=== PATIENT | female | born 1995 | race African-American/Black ===

== ENCOUNTER 2024-07-11 14:38 | Outpatient (AMB) | payer MEDICAID, SELFPAY ==
--- NOTE | 2024-07-11 14:38 | A.OFFVIS_ITS ---
Vital Signs 07/11/24 14:40 Height 5 ft 6.75 in Weight 150 lb 2.157 oz BMI 23.7 BP 120/74 Blood Pressure Location Lt brachial Position Sitting Pulse 85 Pulse Source Pulse Oximeter Pulse Oximetry (%) 100 Oxygen Delivery Method Room Air Intake Visit Reasons: Spondyloarthritis Intake Note: Patient presents with spondyloarthritis today. She is having arthritis and skin flare and would like to talk about med changes. Accompanied by: Significant Other Allergies hydroxyzine [From Atarax] Allergy (Mild, Verified 07/11/24 14:47) bradycardia pineapple Allergy (Mild, Verified 07/11/24 14:47) mouth burning, lip swelling meloxicam Allergy (Mild, Uncoded 07/11/24 14:47) Stomach Upset HPI HPI Spondyloarthritis: Details: She had covid-19 in April she had exacerbation of joint pain and sternal pain causing difficulty breathing/moving/sleeping diagnosed with costochondritis. [facility] Surgical History (Updated 07/11/24 @ 14:58 by Kelsey Arzate CMA) S/P bilateral breast reduction S/P removal of ovarian cyst H/O umbilical hernia repair Family History (Updated 07/11/24 @ 15:00 by Kelsey Arzate CMA) Mother Non Hodgkin lymphoma, stage IIA Father Hypertension Diabetes 1.5, managed as type 2 Sister Type 2 diabetes mellitus Review of Systems Const All systems reviewed & are unremarkable except as noted in HPI and below Physical Exam Vital Signs: Last Vital Signs Pulse 85 07/11/24 14:40 BP 120/74 07/11/24 14:40 Pulse Ox 100 07/11/24 14:40 Oxygen Delivery Method Room Air 07/11/24 14:40 BMI result Body Mass Index 23.7 Const Other: General: Comfortable CVS: RRR Respiratory: clear to auscultation bilaterally. Good respiratory effort Skin: Hyperpigmented circular lesions on arms. She has skin lesions on anterior chest. No scales on lesions. MSK: Tenderness of few small joints and hands. No synovitis. Tender right toes. No dactylitis. Good range of motion of upper extremities and lower extremities. 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 Methotrexate 10/2023 to present has improved polyarthralgias. Methotrexate P.o. was switched to subcutaneous injection due to GI side effects. She has not had an episode of joint swelling or dactylitis. Code(s): M47.819 - Spondylosis without myelopathy or radiculopathy, site unspecified Category: Medical Plan: Labs ordered for drug monitoring and high-risk medication. 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 She is having difficulty with fine motor movements due to chronic inflammatory arthritis not being controlled. Return to clinic in 3 months (2) Other terminal operations manager (current) drug therapy: Code(s): Z79.899 - Other terminal operations manager (current) drug therapy Category: Medical Plan: See above Orders: Orders Aspartate Amino Transferase 07/11/24 Z79.899 - Other terminal operations manager (current) drug t herapy Erythrocyte Sedimentation Rate 07/11/24 Z79.899 - Other alf (current) drug therapy Creatinine 07/11/24 Z79.899 - Other terminal operations manager (current) drug therapy C Reactive Protein 07/11/24 Z79.899 - Other alf (current) drug therapy Alanine Aminotransferase 07/11/24 M47.819 - Spondylosis without myelopathy or radiculopathy, site unspecified, Z79.899 - Other terminal operations manager (current) drug therapy Complete Blood Count Auto Diff 07/11/24 Z79.899 - Other terminal operations manager (current) drug therapy Coding Level of Care Code Est Pt Level 4 (00128) Complex EM visit Add On G2211 Diagnoses Spondyloarthritis M47.819 Other terminal operations manager (current) drug therapy Z79.899
[2024-07-11 14:40] VITALS: BP 120/74; PULSE 85; O2SAT 100; BMI 23.7
== END 2024-07-11 15:48 | disposition home or self-care (01) ==
PROVIDERS: Visit Provider Internal Medicine Rheumatology
DX: M47.819 Spondylosis without myelopathy or radiculopathy, site unspecified (principal); Z79.899 Other long term (current) drug therapy
CPT/HCPCS: 99214

== ENCOUNTER → 2024-07-11 14:38 | Outpatient (BNVA) | payer MEDICAID, SELFPAY | PROVIDERS: Visit Provider Internal Medicine Rheumatology | DX: M47.819 Spondylosis without myelopathy or radiculopathy, site unspecified (principal); Z79.899 Other long term (current) drug therapy | CPT/HCPCS: 99212 ==

== ENCOUNTER 2024-08-29 13:05 | Outpatient (REF) | payer MEDICAID, SELFPAY ==
[2024-08-29 17:48] LABS: MANUAL DIFF FLAG NO
[2024-08-29 18:28] LABS: Basophils Percent Auto 0.4 % (0-2); Hematocrit 37.2 % (37.0-47.0); Hemoglobin 12.2 g/dl (12.0-16.0); Imm Gran Abs Auto 0.02 X10*3/uL (0.00-0.03); Imm Gran Pct Auto 0.3 % (0.0-0.4); Lymphocytes Absolute Auto 1.3 X10*3/uL (1.2-4.9); Lymphocytes Percent Auto 19.3 % (20-40); Mean Corpuscular HGB Conc 32.8 g/dl (31.0-35.0); Mean Corpuscular Hemoglobin 32.6 pg (27.0-33.0); Mean Corpuscular Volume 99.5 fL (80.0-98.0); Mean Platelet Volume 9.6 fL (9.4-12.3); Monocytes Absolute Auto 0.2 X10*3/uL (0.1-1.2); Monocytes Percent Auto 2.2 % (2-11); Neutrophils Absolute Auto 5.4 x10*3/uL (2.0-8.3); Neutrophils Percent Auto 77.8 % (45-73); Platelet Count 305 X10*3/uL (160-400); Red Blood Count 3.74 X10*6/uL (4.20-5.50); Red Cell Distribution Width 12.8 % (11.0-16.0)
[2024-08-29 18:33] LABS: Alanine Aminotransferase 26 U/L (0-31); Aspartate Amino Transferase 24 U/L (5-31); C Reactive Protein < 0.04 mg/dL (< or = 0.50); Estimated Glomerular Filt Rate > 60
[2024-08-29 19:38] LABS: Erythrocyte Sedimentation Rate 4 MM/HR (0-20)
== END 2024-08-29 13:06 | disposition home or self-care (01) ==
LOC: HO.HKASLDS 13:05
PROVIDERS: Visit Provider Internal Medicine Rheumatology
DX: M47.819 Spondylosis without myelopathy or radiculopathy, site unspecified (principal); Z79.899 Other long term (current) drug therapy
CPT/HCPCS: 36415; 82565; 84450; 84460; 85025; 85652; 86140; 99212

== ENCOUNTER 2024-08-29 13:05 | Outpatient (AMB) | payer MEDICAID, SELFPAY ==
[2024-08-29 13:09] VITALS: BP 110/68; PULSE 85; O2SAT 98; BMI 22.9
--- NOTE | 2024-08-29 13:09 | A.OFFVIS_ITS ---
Vital Signs 08/29/24 13:09 Height 5 ft 6.75 in Weight 145 lb BMI 22.9 BP 110/68 Blood Pressure Location Lt brachial Position Sitting Pulse 85 Pulse Source Pulse Oximeter Pulse Oximetry (%) 98 Oxygen Delivery Method Room Air Intake Visit Reasons: spondyloarthritis Intake Note: Patient presents for follow up on spondyloarthritis. Allergies hydroxyzine [From Atarax] Allergy (Mild, Verified 08/29/24 13:13) bradycardia pineapple Allergy (Mild, Verified 08/29/24 13:13) mouth burning, lip swelling meloxicam Allergy (Mild, Uncoded 08/29/24 13:13) Stomach Upset HPI HPI spondyloarthritis: Details: Prednisone 15mg daily started yesterday. She has swelling of her left 4th toe and her fingers. She was taking Celebrex 200 mg twice a day for a few weeks along with methotrexate increased dose. With increasing joint pain she had noticed decreased pain but then swelling in toe occurred 2 weeks ago. [facility] Surgical History (Updated 07/11/24 @ 14:58 by Kelsey Arzate CMA) S/P bilateral breast reduction S/P removal of ovarian cyst H/O umbilical hernia repair Family History (Updated 07/11/24 @ 15:00 by Kelsey Arzate CMA) Mother Non Hodgkin lymphoma, stage IIA Father Hypertension Diabetes 1.5, managed as type 2 Sister Type 2 diabetes mellitus Review of Systems Const All systems reviewed & are unremarkable except as noted in HPI and below Physical Exam Vital Signs: Last Vital Signs Pulse 85 08/29/24 13:09 BP 110/68 08/29/24 13:09 Pulse Ox 98 08/29/24 13:09 Oxygen Delivery Method Room Air 08/29/24 13:09 BMI result Body Mass Index 22.9 Const Other: General: Comfortable CVS: RRR Respiratory: clear to auscultation bilaterally. Good respiratory effort Skin: No lesions seen MSK: Tender right 2nd and 3rd MCP. Tender left 2nd and 3rd MCP. Partial Dactylitis of bilateral 3rd fingers noted. She has tenderness of phalanges and DIPJ of 3rd fingers. Tender left wrist. Good range of motion of upper e xtremities. She has dactylitis left 4th toe with tenderness of all toes left foot. Tender right 5th toe and MTPs bilaterally. Tender right ankle. Good range of motion of lower extremities. 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 Methotrexate 10/2023 to present has improved polyarthralgias. Methotrexate P.o. was switched to subcutaneous injection due to GI side effects. She presents with dactylitis of hands and left foot failed treatment with Celebrex in conjunction with methotrexate. Humira is indicated. We discussed side effects, benefits and drug monitoring. Code(s): M47.819 - Spondylosis without myelopathy or radiculopathy, site unspecified Category: Medical Plan: Labs ordered for drug monitoring on high-risk medication. Continue folic acid 1 mg daily Humira PA. She will need to be scheduled for nurse teaching visit as soon as Humira is approved. She will then need labs for drug monitoring 1 month after starting Humira. Continue prednisone 15 mg daily 1 week, 10 mg daily 1 week, 5 mg daily 1 week then stop. If she has not had complete resolution of dactylitis, she will call office. Then I will prescribe diclofenac 50 mg b.i.d.. Return to clinic in 3 months (2) Other long term care social worker (current) drug therapy: Code(s): Z79.899 - Other care home (current) drug therapy Category: Medical Plan: See above Medications: New adalimumab (Humira(CF)) New PA needed. 40 mg (0.4 mL) subcut Q2W 2 ea 2RF Coding Level of Care Code Est Pt Level 4 (27804) Complex EM visit Add On G2211 Diagnoses Spondyloarthritis M47.819 Other care home (current) drug therapy Z79.899
== END 2024-08-29 13:43 | disposition home or self-care (01) ==
PROVIDERS: Visit Provider Internal Medicine Rheumatology
DX: M47.819 Spondylosis without myelopathy or radiculopathy, site unspecified (principal); Z79.899 Other long term (current) drug therapy
CPT/HCPCS: 99214

== ENCOUNTER 2024-10-16 08:44 | Outpatient (REF) | payer MEDICAID, SELFPAY ==
--- OUTSIDE RECORDS SUMMARY | 2024-10-16 10:56 | XMS_ITS | Encounter Summary ---
Author Organization [facility] Address [address] [place] [address] Care Team Providers Care Chief Librarian Work With Blind Name Role Phone Paddy Simms Primary Care Provider [phone] Encounter Details Date Type Department Care Team (Late Contact Info) Description 09/19/2024 myChart Message [address] [address] Cheryl Sandoval RN Current Eye Discomfort Social [...] Info) Description 01/15/2025 3:45 PM EDT Follow-Up [facility] 4th Floor [address] [place] [address], [place] [phone] Combo Welder: Christy Valentine MD [address] [place] [address] 02/05/2025 10:00 AM EDT Follow-Up [facility] [address] [address] Alondra Chua MD [address] [place] [address] documented as of this encounter Visit Diagnoses Not on filedocumented in this encounter Care Teams Chief Librarian Work With Blind Relationship Specialty Start Date End Date Paddy Simms PA PCP - General 10/24/23 documented as of this encounter
--- OUTSIDE RECORDS SUMMARY | 2024-10-16 10:56 | XMS_ITS | Encounter Summary ---
Author Organization [employer] Address [address] [place] [address] 7t [place] [address] Care Team Providers Care Fire Claims Adjuster Name Role Phone Paddy Simms Primary Care Provider [phone] Encounter Details Date Type Department Care Team (Late st Contact Info) Description 05/16/2023 Abstract [facility] [address] [place] [phone] Paddy Simms PA [address] [place] [address] Social History Tobacco Use Types Packs/Day Years [...] on filedocumented in this encounter Care Teams Fire Claims Adjuster Relationship Specialty Start Date End Date Paddy Simms PA [address] [place] [address] PCP - General Family Medicine 03/18/23 documented as of this encounter
--- OUTSIDE RECORDS SUMMARY | 2024-10-16 10:56 | XMS_ITS | Encounter Summary ---
Author Organization [facility] Address [address] [place] [address] Care Team Providers Care Outreach Consultant Name Role Phone Paddy Simms Primary Care Provider [phone] Reason for Referral * Consultation (Routine) - Pending Review Specialty Diagnoses / Procedures Referred By Contac t Referred To Contact Ophthalmology Diagnoses Photophobia Christy Carver MD [address] [place] [address] Phone: tel: fax: [facility] [address] [place] [address] Phone: tel: fax: Referral ID Status Reason Start Date Expiration Date Visits Requested Visits Authorized [id number] Pending Review Specialty Services Required 09/19/2024 03/21/2026 6 6 Reason for Visit * Reason Comments Skin Problem Biopsy * Dermatology (Routine) - Pending Review Specialty Diagnoses / Procedures Referred By Contac t Referred To Contact Dermatology Diagnoses Dermatitis, unspecified [facility] 4th [address] [place] [address], [place] [address] Phone: tel: fax: Referral ID Status Reason Start Date Expiration Date V isits Requested Visits Authorized [id number] Pending Review 10/19/2023 04/19/2025 6 6 Encounter Details Date Type Department Care Team (Late st Contact Info) Description 09/19/2024 10:00 AM EST Follow-Up [facility] 4th Floor [address] [facility], [place] [address] Linux Support Engineer: Christy Valentine MD [address] [place] [address] Atopic dermatitis, unspecified type (Primary Dx); Photophobia; [...] as of this encounter Progress Notes * Li Luevano MD - 09/19/2024 10:29 AM EST DERMATOLOGY OFFICE VISIT CHIEF COMPLAINT: dermatitis HPI: Polly Guy is a 29 y.o. female who is seen in follow up at [facility] Department of Dermatology for dermatitis follow up. LV 01/29/2024 for eczematous dermatitis when she continued on methotrexate with significant improvement and held off on starting dupilumab. Since the LV, she started dupilumab injections ~June 2024 during a flare, continues on methotrexate injections (increased to 0.7 mL by weighmaster lead), and recently completed a 3-week prednisone taper (15 -> 10 -> 5) yesterday. She is set to start Humira tomorrow, managed by her weighmaster lead. No topicals. No side effects from dupilumab. Reports new photophobia but no conjunctivitis. Her weighmaster lead was interested in a second skin biopsy [...] years ago. 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 Jose Juan Garcia at [facility] in [place] MEDICATIONS, ALLERGIES, PAST MEDICAL HISTORY, FAMILY HISTORY [...] methotrexate injections and start Humira per her weighmaster lead - Reviewed biopsy results from 10/2023 which showed spongiotic dermatitis concerning for atopic dermatitis vs allergic contact dermatitis - Discussed can consider oral LULY inhibitors if no improvement - Reviewed sensitive skin care practices - Referral sent to Ophthalmology - patient reporting new photophobia, advised her to see an installation & maintenance executive to rule out any uveitis We asked [...] Info) Description 01/15/2025 3:45 PM EDT Follow-Up [facility] 4th [address] [place] [address], [place] [address] Linux Support Engineer: Christy Valentine MD [address] [place] [address] 02/05/2025 10:00 AM EDT Follow-Up [facility] [address] [place] [address] Alondra Chua MD [address] [place] [address] Scheduled Referrals Name Type Priority Associated Diagnoses Order Schedule Ambulatory referral to Ophthalmology Outpatient Referral Routine Photophobia Expected: 09/19/2024, Expires: 03/19/2025 documented as of this encounter Visit Diagnoses Diagnosis Atopic dermatitis, unspecified type- Primary Photophobia Visual discomfort Arthritis Unspecified arthropathy, site unspecified documented in this encounter Care Teams Outreach Consultant Relationship Specialty Start Date End Date Paddy Simms PA PCP - General 10/24/23 documented as of this encounter
--- OUTSIDE RECORDS SUMMARY | 2024-10-16 10:56 | XMS_ITS | Encounter Summary ---
Author Organization [facility] Address [address] [place] [address] Care Team Providers Care Tallow Refiner Name Role Phone Paddy Simms Primary Care Provider [phone] Encounter Details Date Type Department Care Team (Late st Contact Info) Description 10/09/2024 myChart Message [facility] 2nd Floor [address] [place] [address], [place] [address] Fibre Composite Technician: Christy Valentine MD [address] [place] [address] Rasuvo Social History Tobacco Use Types Packs/Day [...] Info) Description 01/15/2025 3:45 PM EDT Follow-Up [facility] 4th [address] [place] [address], [place] [phone] Fibre Composite Technician: Christy Valentine MD [address] [place] [address] 02/05/2025 10:00 AM EDT Follow-Up [facility] [address] [address] Alondra Chua MD [address] [place] [address] documented as of this encounter Visit Diagnoses Not on filedocumented in this encounter Care Teams Tallow Refiner Relationship Specialty Start Date End Date Paddy Simms PA PCP - General 10/24/23 documented as of this encounter
--- OUTSIDE RECORDS SUMMARY | 2024-10-16 10:56 | XMS_ITS | Encounter Summary ---
Author Organization [facility] Address [address] [place] [address] Care Team Providers Care Oil Dispatcher Name Role Phone Paddy Simms Primary Care Provider [phone] Reason for Visit * Reason Comments R/o uveitis * Consultation (Routine) - Pending Review Specialty Diagnoses / Procedures Referred By Contac t Referred To Contact Ophthalmology Diagnoses Photophobia Christy Carver MD [address] [place] [address] Phone: tel: fax: [address] [address] Phone: tel: fax: Referral ID Status Reason Start Date Expiration Date Visits Requested Visits Authorized [id number] Pending Review Specialty Services Required 09/19/2024 03/21/2026 6 6 Encounter Details Date Type Department Care Team (Late st Contact Info) Description 10/01/2024 2:45 PM EST Office Visit [address] [address] Alondra Chua MD [address] [place] [address] [phone] Inflammatory arthritis (Primary Dx); Family history of [...] OU - Both Eyes - rheumatology - [place], Humira 40 mg subcutaneous approved and started a week ago, on methotrexate 17.5 mg solution weekly, folic acid 2 mg po qdaily - service tech/welder - Dr. Christy Carver, I reviewed her [...] effects noted I will review notes from concrete mixing plant laborer, [place] Family history of glaucoma [...] methotrexate injections and start Humira per her concrete mixing plant laborer Return in 4 months (on 01/29/2025) for f/up dry eyes , dry eyes, Schirmmers, Refraction. Alondra Chua MD documented in this encounter Plan of Treatment Upcoming Encounters Date Type Department Care Team (Late st Contact Info) Description 01/15/2025 3:45 PM EDT Follow-Up [facility] 4th [address] [place] [address], [place] [phone] Endoscopy Technican: Christy Valentine MD [address] [place] [address] 02/05/2025 10:00 AM EDT Follow-Up [facility] [address] [place] [address] Alondra Chua MD [address] [place] [address] documented as of this encounter Procedures * Due to [place] [employer] law, this organization might not be sharing negative HIV tests. Procedure Name Priority Date/Time Associated Diagnosis Comments COLOR FUNDUS PHOTOGRAPHY - OU - BOTH EYES Routine 10/01/2024 4:02 PM EST Inflammatory arthritis OCT, MACULA - OU - BOTH EYES Routine 10/01/2024 4:02 PM EST Inflammatory arthritis documented in this encounter Results * Due to [place] state law, this organization might not be sharing negative HIV tests. * Color Fundus Photography - OU - Both Eyes (10/01/2024 4:02 PM EST) Narrative OPHTHALMOLOGY IMAGING - 10/01/2024 4:02 PM EST Normal fundus OU us Alondra Chua MD OPHTH PHOTOGRAPHY Final R esult Performing Organization Address [facility]/ZIP Co de Phone Number OPHTHALMOLOGY IMAGING * [...] type documented in this encounter Care Teams Oil Dispatcher Relationship Specialty Start Date End Date Paddy Simms PA PCP - General 10/24/23 documented as of this encounter
--- OUTSIDE RECORDS SUMMARY | 2024-10-16 10:56 | XMS_ITS | Encounter Summary ---
Author Organization [employer] Address [address] [facility] 7t [place] [address] Care Team Providers Care Customer Leader Name Role Phone Paddy Simms Primary Care Provider [phone] Encounter Details Date Type Department Care Team ([facility] st Contact Info) Description 08/05/[address] [address] Paddy Simms PA [address] [place] [address] [phone] Social History Tobacco Use Types Packs/Day Years [...] the past 12 months, has t he [employer], gas, oil or water [employer] threatened to shut off services in your [...] 4:04 PM EST Processed and faxed Auth #[id number] Valid 07/14/24-07/14/25 Visits: 10 * Telephone Encounter - Chip Daly - 08/05/2024 9:32 AM EST Verified Insurance: Referral Office: [facility] Rhe[facility] Diagnosis Code: M47.819 Number of Visits Needed: 10 NPI# of Facility: [id number] NPI# of Provider being referred to: Phone #: [phone] Fax #: [phone] Start Date: 07/14/24 documented in this encounter Plan of Treatment Not on file documented as of this encounter Visit Diagnoses Not on filedocumented in this encounter Care Teams Customer Leader Relationship Specialty Start Date End Date Paddy Simms PA [address] [place] [address] PCP - General Family Medicine 03/18/23 documented as of this encounter
--- OUTSIDE RECORDS SUMMARY | 2024-10-16 10:56 | XMS_ITS | Encounter Summary ---
Author Organization [facility] Address [address] [place] [address] Care Team Providers Care Men'S And Boys' Clothing Salesperson Name Role Phone Paddy Simms Primary Care Provider [phone] Reason for Visit * Reason Onset Date Comments PAC Nurse Scheduling Request 09/19/2024 Inf lammatory arthritis/photophobia ? uveitis Encounter Details Date Type Department Care Team (Late st Contact Info) Description 09/19/2024 Telephone [facility] [address] [address] Cheryl Sandoval RN PAC Nurse Scheduling Request [...] is aware she will be contacted at [phone] with any changes to this appointment documented in this encounter Plan of Treatment Upcoming Encounters Date Type Department Care Team (Late st Contact Info) Description 01/15/2025 3:45 PM EDT Follow-Up [facility] 4th [address] [place] [address], [place] [address] Automobile Rental Representative: Christy Valentine MD [address] [place] [address] 02/05/2025 10:00 AM EDT Follow-Up [facility] [address] [place] [address] Alondra Chua MD [address] [place] [address] documented as of this encounter Visit Diagnoses Not on filedocumented in this encounter Care Teams Men'S And Boys' Clothing Salesperson Relationship Specialty Start Date End Date Paddy Simms PA PCP - General 10/24/23 documented as of this encounter
--- OUTSIDE RECORDS SUMMARY | 2024-10-16 10:56 | XMS_ITS | Encounter Summary ---
Author Organization [employer] Address [address] [place] [address] 7t [place] [address] Care Team Providers Care Wool Sacker Name Role Phone Paddy Simms Primary Care Provider [phone] Reason for Visit * Reason Comments Med Change Request Encounter Details Date Type Department Care Team ([facility] st Contact Info) Description 10/12/2023 Refill [facility] [address] [place] [address] Paddy Simms PA [address] [place], [place] [phone] Binge eating disorder Social History Tobacco Use [...] disorder documented in this encounter Care Teams Wool Sacker Relationship Specialty Start Date End Date Paddy Simms PA [address] [place] [address] PCP - General Family Medicine 03/18/23 documented as of this encounter
--- OUTSIDE RECORDS SUMMARY | 2024-10-16 10:56 | XMS_ITS | Encounter Summary ---
Author Organization [facility] Address [address] [place] [address] Care Team Providers Care Potato Chip Sorter Name Role Phone Paddy Simms Primary Care Provider Reason for Visit * Reason Onset Date Comments Prior Authorization 09/19/2024 methotrexate , PF, 7.5 mg/0.15 mL auto-injectormethotrexate, PF, 17.5 mg/0.35 mL auto-injector Encounter Details Date Type Department Care Team (Late st Contact Info) Description 09/19/2024 Telephone [facility] 2nd [address] [place] [address], Second [place], [place] [phone] Senior Dentist: Christy Valentine MD [address] [place] [address] Prior Authorization (methotrexate, PF, 7.5 mg/0.15 mL [...] not included. Keshawn WINKLER was denied by [employer]. They want a diagnosis of either rheumatoid arthritis or plaque psoriasis with a previous trial of oral methotrexate. documented in this encounter Plan of Treatment Upcoming Encounters Date Type Department Care Team (Late st Contact Info) Description 01/15/2025 3:45 PM EDT Follow-Up [facility] 4th Floor [address] [place] [address], [place] [address] Senior Dentist: Christy Valentine MD [address] [place] [address] 02/05/2025 10:00 AM EDT Follow-Up [facility] [address] [place] [address] Alondra Chua MD [address] [place] [address] documented as of this encounter Visit Diagnoses Not on filedocumented in this encounter Care Teams Potato Chip Sorter Relationship Specialty Start Date End Date Paddy Simms PA PCP - General 10/24/23 documented as of this encounter
--- OUTSIDE RECORDS SUMMARY | 2024-10-16 10:56 | XMS_ITS | Encounter Summary ---
Author Organization [employer] Address [address] [place] [address] 7t [place] [address] Care Team Providers Care Fleet Sales Manager Name Role Phone Paddy Simms Primary Care Provider [phone] Encounter Details Date Type Department Care Team (Late st Contact Info) Description 04/18/2023 Abstract [facility] [address] [place] [phone] Paddy Simms PA [address] [place] [address] Social History Tobacco Use Types Packs/Day Years [...] on filedocumented in this encounter Care Teams Fleet Sales Manager Relationship Specialty Start Date End Date Paddy Simms PA [address] [place] [address] PCP - General Family Medicine 03/18/23 documented as of this encounter
--- OUTSIDE RECORDS SUMMARY | 2024-10-16 10:56 | XMS_ITS | Encounter Summary ---
Author Organization [employer] Address [address] [facility] 7t [place] [address] Care Team Providers Care Chief Gauger Name Role Phone Paddy Simms Primary Care Provider [phone] Encounter Details Date Type Department Care Team ([facility] st Contact Info) Description 10/31/2023 Abstract [facility] [address] [place] [address] Paddy Simms PA [address] [place], [place] [phone] Social History Tobacco Use Types Packs/Day Years [...] CYTOLOGY ORDERABLES F inal Result [facility] [address], [place] [address] documented in this encounter Visit Diagnoses Not on filedocumented in this encounter Care Teams Chief Gauger Relationship Specialty Start Date End Date Paddy Simms PA [address] [place] [address] PCP - General Family Medicine 03/18/23 documented as of this encounter
--- OUTSIDE RECORDS SUMMARY | 2024-10-16 10:57 | XMS_ITS | Encounter Summary ---
Author Organization [employer] Address [address] [facility] 7t [place] [address] Care Team Providers Care Human Resources Psychologist Name Role Phone Paddy Simms Primary Care Provider [phone] Encounter Details Date Type Department Care Team ([facility] st Contact Info) Description 09/20/[address] [address] Paddy Simms PA [address] [place] [address] [phone] Social History Tobacco Use Types Packs/Day Years [...] the past 12 months, has t he [employer], gas, oil or water [employer] threatened to shut off services in your [...] , and cause photo-phobia, Ptstated saw her wireline operator and wanted pt to see eye md for this, [facility] Pt is concerned and would like a [...] seen for eye pain,burning and watery eyes [phone] documented in this encounter Plan of Treatment Not on file documented as of this encounter Visit Diagnoses Not on filedocumented in this encounter Care Teams Human Resources Psychologist Relationship Specialty Start Date End Date Paddy Simms PA [address] [place] [address] PCP - General Family Medicine 03/18/23 documented as of this encounter
--- OUTSIDE RECORDS SUMMARY | 2024-10-16 10:57 | XMS_ITS | Clinical Summary ---
Author Organization [employer] Address [address] [place] [address] 7t [place] [address] Care Team Providers Care Correctional Classification Counselor Name Role Phone Paddy Simms Primary Care Provider [phone] Allergies Active Allergy Reactions Criticality Noted Date Comments Hydroxyzine 12/25/2017 Other reaction(s): Other (See Comments) feels high, then sleep too much Milk-Related Compounds 12/01/2017 Other reaction(s): Other (See Comments) Intolerance Pineapple 01/30/2018 Lip swelling Marquez Extract 11/26/2018 Lip burning Medications midodrine (Proamatine) [...] with Rheumatology and dermatology. Recently completed two [id number] prednisone tapers, each following a 15-10-5 mg [...] suspected psoriatic arthritis managed with methotrexate by nuclear engineer that presents for atraumatic sternal chest pain [...] also hold the Triamcinolone. Patient reports that Monitor Technician instructed them to hold methotrexate until sxs [...] recommend she discuss discontinuing cromolyn with her clean in places operator. Vestibular migraine 12/11/2023 Overview (12/11/2023): Related [...] sequestrant prescribed by prior GI in [place]. Assessment & Plan (05/25/2023 9:24 AM EDT): [...] also to continue uptitration of vyvanse with DISTRIBUTION AGENT [place] she is now established with. Return [...] Continue with weekly CBT therapist, and monthly DISTRIBUTION AGENT sessions. Assessment & Plan (03/18/2023 9:34 AM [...] Description 09/23/2024 10:40 AM EST Office Visit [address] [phone] Chan Owen PA-David Discomfort of both eyes (Primary Dx) 09/20/[address] [phone] Paddy Simms PA 09/05/[address] [phone] Paddy Simms PA Cervical Cancer Screening 08/09/[address] [address] Paddy Simms PA 08/05/[address] [address] Paddy Simms PA from Last [...] 4th Gen HIV Antibody Antigen NEGATIVE (NEG) [facility] Comment: Negative for antibodies to HIV 1 and HIV 2 and P24 antigen. Reference range: Negative Additional note: Written patient authorization is required for each separate release of this test result. This test was performed on the [employer] immunoassay system. Testing performed or reported by [facility], a Service of [facility], [facility] [place] [address] Rafiq Chino MD, Armature Inspector [place]# [id number] Blood 05/25/2023 9:22 AM EDT 05/25/2023 9:32 AM EDT us Paddy Luthi PA LAB BLOOD ORDERABLES Final Resul t Performing Organization Address [facility] Co de Phone Number [facility] [address] [place] [address] * Hepatits C Antibody w/Reflex HCV Quant PCR and Genotyping (05/25/2023 9:22 AM EDT) Hepatitis C Virus Ab, Serum NEGATIVE (NEG) [facility] Comment: Reference range: Negative This test was performed on the digitalbox immunoassay system. Testing performed or reported by [facility], a Service of [facility], [address] [place] [address] Rafiq Chino MD, Armature Inspector [facility]# [id number] 05/25/2023 9:22 AM EDT 05/25/2023 9:31 AM EDT Paddy WINKLER LAB BLOOD ORDERABLES Final Resul t Performing Organization Address [facility]/ZIP Co de Phone Number [facility] [address] [place] [address] * Pap Smear (05/21/2021 12:00 AM EDT) Swab Historical Provider LAB CYTOLOGY ORDERABLES F inal Result Performing Organization Address [facility] Co de Phone Number [address], [place] [address] from Last 3 Months or Most Recently Relevant to Health Maintenance Insurance , [facility] [place] [address] [facility] C3 Care Teams Correctional Classification Counselor Relationship Specialty Start Date End Date Paddy Simms PA [address] [place] [address] PCP - General Family Medicine 03/18/23
--- OUTSIDE RECORDS SUMMARY | 2024-10-16 10:57 | XMS_ITS | Clinical Summary ---
Author Organization [facility] Address [address] [place] [address] Care Team Providers Care Production Technician Name Role Phone Paddy Simms Primary Care Provider [phone] Allergies Active Allergy Reactions Criticality Noted Date Comments Hydroxyzine Other (see comments) 12/25/2017 Other reaction(s): Other (See Comments) feels high, then sleep too much feels high, then sleep too much Milk Containing Products (Dairy) Other (see comments) 12/01/2017 Intolerance Pineapple Swelling High 11/09/2001 Lip swelling Monette Other (see comments) 11/26/2018 Lip burning Medications [...] Department Care Team Description 10/09/2024 myChart Message [facility] 2nd Floor [address] [facility], [place] [address] Banquet Set Up Person: Christy Valentine MD Rasuvo 10/01/2024 2:45 PM EST Office Visit [facility] [address] [place] [address] Alondra Chua MD Inflammatory arthritis (Primary Dx); Family history of glaucoma; Dry eyes, bilateral; Atopic dermatitis, unspecified type 09/19/2024 10:00 AM EST Follow-Up [facility] [address] [phone] Banquet Set Up Person: Christy Valentine MD Atopic dermatitis, unspecified type (Primary Dx); Photophobia; Arthritis 09/19/2024 myChart Message [facility] [address] [place] [address] Cheryl Sandoval, DUNCAN Current Eye Discomfort 09/19/2024 Telephone [facility] [address] [address] Cheryl Sandoval, DUNCAN PAC Nurse Scheduling Request (Inflammatory arthritis/photophobia ? uveitis) 09/19/2024 Telephone [facility] 2nd Floor [address] [place] [address], [place] [address] Banquet Set Up Person: Christy Valentine MD Prior Authorization (methotrexate, PF, 7.5 mg/0.15 mL auto-injector/methotre xate, PF, 17.5 mg/0.35 mL auto-injector) 08/29/2024 Orders Only [facility] [address] [address] Banquet Set Up Person: Christy Valentine MD 08/29/2024 Telephone [facility] [address] [address] Banquet Set Up Person: John Connell 08/26/2024 beBetter Healthhart Message [facility] [address] [address] Banquet Set Up Person: Christy Valentine MD Question about Dupixent from [...] Info) Description 01/15/2025 3:45 PM EDT Follow-Up [facility] 4th Floor [address] [place] [address], [place] [address] Banquet Set Up Person: Christy Valentine MD [address] [place] [phone] 02/05/2025 10:00 AM EDT Follow-Up [facility] [address] [place] [address] Alondra Chua MD [address] [place] [address] Health Maintenance Due Date Last Done Comments [...] 05/20/2024, , 06/08/2021 Procedures * Due to [place] iMove law, this organization might not be sharing negative HIV tests. Procedure Name Priority Date/Time Associated Diagnosis Comments COLOR FUNDUS PHOTOGRAPHY - OU - BOTH EYES Routine 10/01/2024 4:02 PM EST Inflammatory arthritis OCT, MACULA - OU - BOTH EYES Routine 10/01/2024 4:02 PM EST Inflammatory arthritis from Last 3 Months Results * Due to [place] iMove law, this organization might not be sharing negative HIV tests. * Color Fundus Photography - OU - Both Eyes (10/01/2024 4:02 PM EST) Narrative OPHTHALMOLOGY IMAGING - 10/01/2024 4:02 PM EST Normal fundus OU Alondra Chua MD OPHTH PHOTOGRAPHY Final R esult Performing Organization Address [facility] Co de Phone Number OPHTHALMOLOGY IMAGING * OCT, Retina - OU - Both Eyes (10/01/2024 4:02 PM EST) Narrative OPHTHALMOLOGY IMAGING - 10/01/2024 4:02 PM EST Normal foveal contour no CME OU Alondra Chua MD OPHTH TOMOGRAPHY Final Re sult Performing Organization Address [facility] Co de Phone Number OPHTHALMOLOGY IMAGING from Last [address] [facility] Advance Directives Documents on File Type Date Recorded Patient Theatrical Agent Expl [facility] Care Proxy 11/14/2016 12:00 AM 11/14 Care Teams Production Technician Relationship Specialty Start Date End Date Paddy Simms PA PCP - General 10/24/23
--- OUTSIDE RECORDS SUMMARY | 2024-10-16 10:57 | XMS_ITS | Encounter Summary ---
Author Organization [facility] Address [address] [place] [address] Care Team Providers Care Shield Installer Name Role Phone Paddy Simms Primary Care Provider [phone] Encounter Details Date Type Department Care Team (Late st Contact Info) Description 08/26/2024 myChart Message [facility] 4th Floor [address] [place] [phone] Online Marketing Specialist: Christy Valentine MD [address] [place] [phone] Question about Dupixent Social History Tobacco Use [...] Info) Description 01/15/2025 3:45 PM EDT Follow-Up [facility] 4th Floor [address] [place] [phone] Online Marketing Specialist: Christy Valentine MD [address] [place] [address] [phone] 02/05/2025 10:00 AM EDT Follow-Up [facility] [address] [address] Alondra Chua MD [address] [place] [phone] documented as of this encounter Visit Diagnoses Not on filedocumented in this encounter Care Teams Shield Installer Relationship Specialty Start Date End Date Paddy Simms PA PCP - General 10/24/23 documented as of this encounter
--- OUTSIDE RECORDS SUMMARY | 2024-10-16 10:57 | XMS_ITS | Referral Summary ---
Author Organization [facility] Address [address] [place] [address] Care Team Providers Care Parimutuel Clerk Name Role Phone Paddy Simms Primary Care Provider [phone] Encounters Date Type Department Care Team Description 10/09/2024 myChart Message [facility] [address] [place] [address] Tea Tree Farm Worker: Christy Valentine MD [facility] 10/01/2024 2:45 PM EST Office Visit [facility] [address] [address] Alondra Chua MD Inflammatory arthritis (Primary Dx); Family history of glaucoma; Dry eyes, bilateral; Atopic dermatitis, unspecified type 09/19/2024 bCODEhart Message [facility] [address] [address] Cheryl Sandoval RN Current Eye Discomfort 09/19/2024 Telephone [facility] [address] [phone] Cheryl Sandoval RN PAC Nurse Scheduling Request (Inflammatory arthritis/photophobia ? uveitis) 09/19/2024 Telephone [facility] [address] [phone] Tea Tree Farm Worker: Christy Valentine MD Prior Authorization (methotrexate, PF, 7.5 mg/0.15 mL auto-injector/methotre xate, PF, 17.5 mg/0.35 mL auto-injector) 09/19/2024 10:00 AM EST Follow-Up [facility] [address] [place] [address], [place] [phone] Tea Tree Farm Worker: Christy Valentine MD Atopic dermatitis, unspecified type (Primary Dx); Photophobia; Arthritis 08/29/2024 Orders Only [facility] [address], [place] [address] Tea Tree Farm Worker: Christy Valentine MD 08/29/2024 Telephone [facility] [address] [place] [address], [place] [phone] Tea Tree Farm Worker: John Connell 08/26/2024 myChart Message [facility] [address] [place] [address], [place] [phone] Tea Tree Farm Worker: Christy Valentine MD Question about Dupixent from Last 3 Months Allergies Active Allergy Reactions Criticality Noted Date Comments Hydroxyzine Other (see comments) 12/25/2017 Other reaction(s): Other (See Comments) feels high, then sleep too much feels high, then sleep too much Milk Containing Products (Dairy) Other (see comments) 12/01/2017 Intolerance Pineapple Swelling High 11/09/2001 Lip swelling Wendell Other (see comments) 11/26/2018 Lip burning Medications [...] Info) Description 01/15/2025 3:45 PM EDT Follow-Up [facility] 4th [address] [place] [address], [place] [phone] Tea Tree Farm Worker: Christy Valentine MD [address] [place] [phone] 02/05/2025 10:00 AM EDT Follow-Up [facility] [address] [place] [phone] Alondra Chua MD [address] [place] [address] Procedures * Due to [place] Wireless Safety law, this organization might not be sharing negative HIV tests. Procedure Name Priority Date/Time Associated Diagnosis Comments COLOR FUNDUS PHOTOGRAPHY - OU - BOTH EYES Routine 10/01/2024 4:02 PM EST Inflammatory arthritis OCT, MACULA - OU - BOTH EYES Routine 10/01/2024 4:02 PM EST Inflammatory arthritis from Last 3 Months Results * Due to [place] Wireless Safety law, this organization might not be sharing [...] TOMOGRAPHY Final Re sult Performing Organization Address [facility]/ZIP Co de Phone Number OPHTHALMOLOGY IMAGING from Last 3 Months Insurance [facility] Advance Directives Documents on File Type Date Recorded Patient Tablet Coater [facility] Proxy 11/14/2016 12:00 AM 11/14 Care Teams Parimutuel Clerk Relationship Specialty Start Date End Date Paddy Simms PA PCP - General 10/24/23
--- OUTSIDE RECORDS SUMMARY | 2024-10-16 10:57 | XMS_ITS | Encounter Summary ---
Author Organization [employer] Address [address] [facility] 7t [place] [address] Care Team Providers Care Estimator And Drafter Name Role Phone Paddy Simms Primary Care Provider [phone] Encounter Details Date Type Department Care Team ([facility] st Contact Info) Description 08/09/[address] [phone] Paddy Simms PA [address] [place] [address] [phone] Social History Tobacco Use Types Packs/Day Years [...] the past 12 months, has t he [employer], gas, oil or water i[employer]uma threatened to shut off services in your [...] Facility: NPI# of Provider being referred to: [id number] Dr Jose Juan Garcia [address] [place] [address] Dr Jessica MARRERO [id number] Phone #: [phone] Fax #: documented in this encounter Plan of Treatment Not on file documented as of this encounter Visit Diagnoses Not on filedocumented in this encounter Care Teams Estimator And Drafter Relationship Specialty Start Date End Date Paddy Simms PA [address] [place] [phone] PCP - General Family Medicine 03/18/23 documented as of this encounter
--- OUTSIDE RECORDS SUMMARY | 2024-10-16 10:57 | XMS_ITS | Encounter Summary ---
Author Organization [employer] Address [address] [place] [address] 7t [place] [address] Care Team Providers Care Steward/Stewardess Third Class Name Role Phone Paddy Simms Primary Care Provider [phone] Reason for Visit * Reason Comments Eye Problem Happening on and off for about a year burning in eyes, has seen derm they rec seeing an eye doc will be seen there next week Encounter Details Date Type Department Care Team (Late st Contact Info) Description 09/23/2024 10:40 AM EST Office Visit [facility] [address] [place] [phone] Chan Owen PA-C [address] [place], [place] [phone] Discomfort of both eyes (Primary Dx) Social [...] with Rheumatology and dermatology. Recently completed two [id number] prednisone tapers, each following a 15-10-5 mg [...] with Rheumatology and dermatology. Recently completed two [id number] prednisone tapers, each following a 15-10-5 mg [...] Primary documented in this encounter Care Teams Steward/Stewardess Third Class Relationship Specialty Start Date End Date Paddy Simms PA [address] [place] [phone] PCP - General Family Medicine 03/18/23 documented as of this encounter
[2024-10-16 18:37] LABS: MANUAL DIFF FLAG NO
[2024-10-16 18:52] LABS: Basophils Percent Auto 0.7 % (0-2); Eosinophils Absolute Auto 0.2 X10*3/uL (0.0-0.4); Eosinophils Percent Auto 3.9 % (0-4); Hemoglobin 12.9 g/dl (12.0-16.0); Imm Gran Abs Auto 0.01 X10*3/uL (0.00-0.03); Imm Gran Pct Auto 0.2 % (0.0-0.4); Lymphocytes Percent Auto 55.7 % (20-40); Mean Corpuscular HGB Conc 33.1 g/dl (31.0-35.0); Mean Corpuscular Hemoglobin 33.1 pg (27.0-33.0); Mean Platelet Volume 9.7 fL (9.4-12.3); Monocytes Absolute Auto 0.6 X10*3/uL (0.1-1.2); Monocytes Percent Auto 10.2 % (2-11); Neutrophils Absolute Auto 1.6 x10*3/uL (2.0-8.3); Neutrophils Percent Auto 29.3 % (45-73); Platelet Count 301 X10*3/uL (160-400); Red Cell Distribution Width 13.2 % (11.0-16.0); White Blood Count 5.4 X10*3/uL (4.8-10.8)
[2024-10-16 19:11] LABS: Alanine Aminotransferase 28 U/L (0-31); Aspartate Amino Transferase 28 U/L (5-31); C Reactive Protein < 0.04 mg/dL (< or = 0.50); Estimated Glomerular Filt Rate > 60
[2024-10-16 19:56] LABS: Erythrocyte Sedimentation Rate 5 MM/HR (0-20)
== END 2024-10-16 08:45 | disposition home or self-care (01) ==
LOC: HO.HKASLDS 08:44
PROVIDERS: Visit Provider Internal Medicine Rheumatology
DX: Z79.899 Other long term (current) drug therapy (principal); Z79.60 Long term (current) use of unspecified immunomodulators and immunosuppressants
CPT/HCPCS: 36415; 82565; 84450; 84460; 85025; 85652; 86140; 99212

== ENCOUNTER 2024-10-16 08:44 | Outpatient (AMB) | payer MEDICAID, SELFPAY ==
[2024-10-16 08:47] VITALS: BP 120/90; PULSE 68; O2SAT 100; BMI 22.5
--- NOTE | 2024-10-16 08:47 | MHC.OFFVIS ---
Vital Signs 10/16/24 08:47 Height 5 ft 6.75 in Weight 142 lb 13.753 oz BMI 22.5 BP 120/90 H Blood Pressure Location Lt brachial Position Sitting Pulse 68 Pulse Source Pulse Oximeter Pulse Oximetry (%) 100 Oxygen Delivery Method Room Air Intake Visit Reasons: 3 mo follow up Intake Note: Patient presents for follow up on spondyloarthritis. Accompanied by: self Allergies hydroxyzine [From Atarax] Allergy (Mild, Verified 10/16/24 08:47) bradycardia pineapple Allergy (Mild, Verified 10/16/24 08:47) mouth burning, lip swelling meloxicam Allergy (Mild, Uncoded 08/29/24 13:13) Stomach Upset HPI HPI 3 mo follow up: Details: Humira started 5 weeks ago. No noctural pain. She has noted less swelling in her toes. She was having exacerbation of rash on her extremities. Rash resolved after 2nd Humira injections. She continues to take Dupixent prescribed dermatology physician at [facility] D[facility] program. [facility] Surgical History S/P bilateral breast reduction S/P removal of ovarian cyst H/O umbilical hernia repair Family History Mother Non Hodgkin lymphoma, stage IIA Father Hypertension Diabetes 1.5, managed as type 2 Sister Type 2 diabetes mellitus Review of Systems Const All systems reviewed & are unremarkable except as noted in HPI and below Physical Exam Vital Signs: Last Vital Signs Pulse 68 10/16/24 08:47 BP 120/90 H 10/16/24 08:47 Pulse Ox 100 10/16/24 08:47 Oxygen Delivery Method Room Air 10/16/24 08:47 BMI result Body Mass Index 22.5 Const Other: General: Comfortable CVS: RRR Respiratory: clear to auscultation bilaterally. Good respiratory effort Skin: No lesions seen MSK: Tender right 2nd and 3rd MCP. No dactylitis in hands. Tender left wrist. Good range of motion of upper extremities. She has dactylitis left 4th toe with tenderness of all toes left third DIPJ. Dactylitis of right 4th and 5th toe with tenderness on palpation. Tender MTPs bilaterally. Tender bilateral ankles. Good range of motion of lower extremities. Assessment & Plan Assessment & Plan (1) Spondyloarthritis: Comment: Improvement in dactylitis in hands and feet with addition of Humira. Diagnosed based on history of dactylitis 08/09/2023 with persistent arthralgias, inflammatory back pain (SI joint and L-spine x-ray 10/10/2023 normal), normal inflammatory markers and seronegative (RF/CCP/TREVOR/HLA-B27). Methotrexate 10/2023 to present has improved polyarthralgias. Methotrexate P.o. was switched to subcutaneous injection due to GI side effects. 08/2024 dactylitis of hands and bilateral feet failed treatment with Celebrex in conjunction with methotrexate. Humira 08/2024- Code(s): M47.819 - Spondylosis without myelopathy or radiculopathy, site unspecified Category: Medical Plan: Labs ordered for drug monitoring on high-risk medication. Continue methotrexate 17.5 mg once weekly. She will call office when she needs methotrexate refill Continue folic acid 1 mg daily Continue Humira every other week Trial off of Celebrex as she is taking it only once a day She will schedule nurse teaching visit to ensure that she has administrating Humira correctly as patient did not have nurse teaching visit for 1st dose administration in office. 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 therapy: Code(s): Z79.899 - Other halfway (current) drug therapy Category: Medical Plan: See above Orders: Orders Creatinine Today Z79.60 - manager of organizational development (current) use of unspecified immunomodulators and immunosuppressants Aspartate Amino Transferase Today Z79.60 - detention (current) use of unspecified immunomodulators and immunosuppressants C Reactive Protein Today Z79.899 - Other motor vehicle light assembler (current) drug therapy Alanine Aminotransferase Today Z79.60 - detention (current) use of unspecified immunomodulators and immunosuppressants Complete Blood Count Auto Diff Today Z79.60 - detention (current) use of unspecified immunomodulators and immunosuppressants Erythrocyte Sedimentation Rate Today Z79.899 - Other halfway (current) drug therapy Medications: Changed From folic acid 1 mg PO DAILY To folic acid 2 mg (2 x 1 mg) PO DAILY 180 tabs 3RF Discontinued prednisone Take 3 tablets daily 1 week, 2 tablets daily 1 week, 1 tablet daily 7 days Discontinued Reason: Doctor's Order 15 mg (3 x 5 mg) PO DAILY 42 tabs 0RF Coding Level of Care Code Est Pt Level 4 (87871) Complex EM visit Add On G2211 Diagnoses Spondyloarthritis M47.819 Other motor vehicle light assembler (current) drug therapy Z79.899
--- OUTSIDE RECORDS SUMMARY | 2024-10-16 09:27 | XMS_ITS | Encounter Summary ---
Author Organization [employer] Address [address] [place] [address] [address] [place] [address] Care Team Providers Care Talent Development Director Name Role Phone Paddy Simms Primary Care Provider [phone] Encounter Details Date Type Department Care Team (Late st Contact Info) Description 04/18/2023 Abstract [facility] [address] [place] [phone] Paddy Simms PA [address] [place] [address] Social History Tobacco Use Types Packs/Day Years Used Date Smoking Tobacco: Never Smokeless Tobacco: Never Comments Unknown Sex and Gender Information Value Date Recorded Sex Assigned at Female 03/16/2023 9:01 AM EDT Legal Sex Female 8:59 AM EDT Gender Identity Female 03/16/2023 9:01 AM EDT Sexual Orientation Lesbian or Whiteside 03/16/2023 9: 01 AM EDT documented as of this encounter Plan of Treatment Not on file documented as of this encounter Visit Diagnoses Not on filedocumented in this encounter Care Teams Talent Development Director Relationship Specialty Start Date End Date Paddy Simms PA [address] [place] [address] PCP - General Family Medicine 03/18/23 documented as of this encounter
--- OUTSIDE RECORDS SUMMARY | 2024-10-16 09:27 | XMS_ITS | Encounter Summary ---
Author Organization [employer] Address [address] [place] [address] [address] [place] [address] Care Team Providers Care Test Skein Winder Name Role Phone Paddy Simms Primary Care Provider [phone] Reason for Visit * Reason Comments Med Change Request Encounter Details Date Type Department Care Team ([facility] st Contact Info) Description 10/12/2023 Refill [facility] [address] [place] [address] Paddy Simms PA [address] [place], [place] [id number] Binge eating disorder Social History Tobacco Use Types Packs/Day Years Used Date Smoking Tobacco: Former Cigarettes 0.5 10 0 08/21/2012 - 08/21/2022 Smokeless Tobacco: Never Alcohol Use Standard Drinks/Week Comments Not Currently 0 (1 standard drink = 0.6 oz pure alcohol) occasional, couple drinks approx 2x/month PHQ-2 Answer Date Recorded Patient Health Questionnaire-2 Score 1 05/25/2023 Alcohol Answer Date Recorded Frequency of Alcohol Consumption Not on file 05/25/2023 Average Number of Drinks Not on file 023 Frequency of Binge Drinking Not on file 12/2022 Score 0 05/25/2023 Housing Stability Answer Date Recorded What is your housing situation today? I have vandana mejía 06/08/[address] you li ve. Do you have problems with any of the following? None of the above 06/08/2023 Food Insecurity Answer Date Recorded Within the past 12 months, y ou worried that your food would run out before you got money to buy more: Never True 06/08/2023 Within the past 12 months,th e food you bought just didn't last and you didn't have enough money to get more: Never True Transportation Answer Date Recorded In the past 12 months, has l ack of transportation kept you from medical appts, meetings, work or from getting things needed for daily living? No 06/08/2023 Utilities Answer Date Recorded In the past 12 months, has t he electric, gas, oil or water company threatened to shut off services in your home? No 06/08/2023 Depression Answer Date Recorded Patient Health Questionnaire-2 Score 1 05/25/2023 Comments Unknown Sex and Gender Information Value Date Recorded Sex Assigned at Female 03/16/2023 9:01 AM EDT Legal Sex Female 8:59 AM EDT Gender Identity Female 03/16/2023 9:01 AM EDT Sexual Orientation Lesbian or Whiteside 03/16/2023 9: 01 AM EDT documented as of this encounter Plan of Treatment Not on file documented as of this encounter Visit Diagnoses Diagnosis Binge eating disorder documented in this encounter Care Teams Test Skein Winder Relationship Specialty Start Date End Date Paddy Simms PA [address] [place] [id number] PCP - General Family Medicine 03/18/23 documented as of this encounter
--- OUTSIDE RECORDS SUMMARY | 2024-10-16 09:27 | XMS_ITS | Encounter Summary ---
Author Organization [employer] Address [address] [place] [address] 7[address] [place] [address] Care Team Providers Care Mortgage Field Inspector Name Role Phone Paddy Simms Primary Care Provider [phone] Encounter Details Date Type Department Care Team (Late st Contact Info) Description 05/16/2023 Abstract [facility] [address] [place] [phone] Paddy Simms PA [address] [place] [address] Social History Tobacco Use Types Packs/Day Years [...] on filedocumented in this encounter Care Teams Mortgage Field Inspector Relationship Specialty Start Date End Date Paddy Simms PA [address] [place] [address] PCP - General Family Medicine 03/18/23 documented as of this encounter
--- OUTSIDE RECORDS SUMMARY | 2024-10-16 09:27 | XMS_ITS | Encounter Summary ---
Author Organization [facility] Address [address] [place] [address] Care Team Providers Care Finger Buffs Assembler Name Role Phone Paddy Simms Primary Care Provider [phone] Encounter Details Date Type Department Care Team (Late Contact Info) Description 09/19/2024 myChart Message [address] [address] Cheryl Sandoval RN Current Eye Discomfort Social History Tobacco Use Types Packs/Day Years Used Date Smoking Tobacco: Never Smokeless Tobacco: Never Comments Unknown Sex and Gender Information Value Date Recorded Sex Assigned at Female 10/19/2023 11:17 AM EST Legal Sex Female 7:24 PM EDT Gender Identity Female 11/10/2023 9:42 AM EDT Sexual Orientation Lesbian or Whiteside 11/10/2023 9: 42 AM EDT documented as of this encounter Plan of Treatment Upcoming Encounters Date Type Department Care Team (Late Contact Info) Description 01/15/2025 3:45 PM EDT Follow-Up [facility] [address] [place] [address], [place] [phone] Lineman A Class: Christy Valentine MD [address] [place] [id number] 02/05/2025 10:00 AM EDT Follow-Up [facility] [address] [address] Alondra Chua MD [address] [place] [address] documented as of this encounter Visit Diagnoses Not on filedocumented in this encounter Care Teams Finger Buffs Assembler Relationship Specialty Start Date End Date Paddy Simms PA PCP - General 10/24/23 documented as of this encounter
--- OUTSIDE RECORDS SUMMARY | 2024-10-16 09:27 | XMS_ITS | Encounter Summary ---
Author Organization [facility] Address [address] [place] [address] Care Team Providers Care Bakery Pastry Internship Name Role Phone Paddy Simms Primary Care Provider [phone] Encounter Details Date Type Department Care Team (Late st Contact Info) Description 10/09/2024 myChart Message [facility] [address]nd [address] [place] [address], [place] [address] Refrigeration Service Technician: Christy Valentine MD [address] [place] [phone] [place] Social History Tobacco Use Types Packs/Day Years [...] Encounters Date Type Department Care Team (Late st Contact Info) Description 01/15/2025 3:45 PM EDT Follow-Up [facility] [address] [place] [address], [place] [phone] Refrigeration Service Technician: Christy Valentine MD [address] [place] [phone] 02/05/2025 10:00 AM EDT Follow-Up [facility] [address] [address] Alondra Chua MD [address] [place] [phone] documented as of this encounter Visit Diagnoses Not on filedocumented in this encounter Care Teams Bakery Pastry Internship Relationship Specialty Start Date End Date Paddy Simms PA PCP - General 10/24/23 documented as of this encounter
--- OUTSIDE RECORDS SUMMARY | 2024-10-16 09:27 | XMS_ITS | Encounter Summary ---
Author Organization [facility] Address [address] [place] [address] Care Team Providers Care Pipeline Gang Supervisor Name Role Phone Paddy Simms Primary Care Provider [phone] Reason for Visit * Reason Comments R/o uveitis * Consultation (Routine) - Pending Review Specialty Diagnoses / Procedures Referred By Contac t Referred To Contact Ophthalmology Diagnoses Photophobia Christy Carver MD [address] [place] [id number] Phone: tel: fax: [address] [address] Phone: tel: fax: Referral ID Status Reason Start Date Expiration Date Visits Requested Visits Authorized [id number] Pending Review Specialty Services Required 09/19/2024 03/21/2026 6 6 Encounter Details Date Type Department Care Team (Late st Contact Info) Description 10/01/2024 2:45 PM EST Office Visit [address] [id number] Alondra Chua MD [address] [place] [address] [phone] Inflammatory arthritis (Primary Dx); Family history of glaucoma; Dry eyes, bilateral; Atopic dermatitis, unspecified type Social History Tobacco Use Types Packs/Day Years Used Date Smoking Tobacco: Never Smokeless Tobacco: Never Comments Unknown Sex and Gender Information Value Date Recorded Sex Assigned at Female 10/19/2023 11:17 AM EST Legal Sex Female 7:24 PM EDT Gender Identity Female 11/10/2023 9:42 AM EDT Sexual Orientation Lesbian or Whiteside 11/10/2023 9: 42 AM EDT documented as of this encounter Progress Notes * Alondra Chua MD - 10/01/2024 3:44 PM EST Constance Guy had concerns including R/o uveitis. HPI Varying levels of photophobia for ~ 1 year Burning OU w/ fullness in globes and excessive tearing methotrexate 17.5mg Q Humira (has had first loading dose) Dupixent Q weekly This is the first time they are starting biologic tx Mat aunt with GLC PGF went blind at 40 on unknown etiology Last edited by ALEJANDRA Rodrigues on 10/01/2024 3:09 PM. Past medical/surgical/family/social history reviewed. Medications have been reviewed. No current outpatient medications on file. (Ophthalmic Drugs) No current facility-administered medications for this visit. (Ophthalmic Drugs) Current Outpatient Medications (Other) Medication Sig BD Tuberculin Syringe 1 mL 27 x 1/2 syringe USE ONE SYRINGE WEEKLY WITH METHOTREXATE INJECTION buPROPion XL (WELLBUTRIN XL) 300 mg tablet SMARTSI Tablet(s) By Mouth Every Morning colestipoL (COLESTID) 1 gram tablet SMARTSI Tablet(s) By Mouth Twice Daily cycloSPORINE (RESTASIS) 0.05% ophthalmic emulsion Instill 1 drop into both eyes 2 times a day. dupilumab (DUPIXENT) 300 mg/2 mL syringe injection Inject 2 mL (300 mg total) under the skin every 14 days. folic acid (FOLVITE) 1 mg tablet Take 2 mg by mouth once a day. levocetirizine (XYZAL) 5 mg tablet Take 10 mg by mouth daily. methotrexate, PF, 7.5 mg/0.15 mL auto-injector Inject 0.35 mL (17.5 mg total) under the skin every 7 days. METOPROLOL TARTRATE 12.5 MG PO SPLIT TABLET (LOPRESSOR) midodrine (PROAMATINE) 5 mg tablet SMARTSI Tablet(s) By Mouth 3 Times Daily naltrexone (REVIA) 50 mg tablet SMARTSI.5 Tablet(s) By Mouth Every Morning perfluorohexyloctane, PF, 100 % drops Instill 1 drop into affected eye(s) 4 times a day. pyridostigmine (MESTINON) 60 mg tablet Take 60 mg by mouth 3 times daily. ruxolitinib (OPZELURA) 1.5 % topical cream Apply a thin layer twice daily to affected areas of up to 20% body surface area. Do not exceed more than 60 g/week or 100 g every two weeks. triamcinolone acetonide (KENALOG) 0.025% cream Apply topically to the affected area 2 times a day. Apply to affected area Vyvanse 30 mg capsule SMARTSI Capsule(s) By Mouth Every Morning No current facility-administered medications for this visit. (Other) Ms. Guy has no past medical history on file. The patient has no past surgical history on file. Base Eye Exam Visual Acuity (Snellen - Linear) Right Left Dist sc 20/20 20/20 -1 Tonometry (I-Care, 3:07 PM) Right Left Pressure 15 16 Pupils Dark Light Right 3.5 3 Left 3.5 3 Visual Rodriguez Left Right Full Full Extraocular Movement Right Left Full Full Neuro/Psych Oriented x3: Yes Mood/Affect: Normal Dilation Both eyes: 1.0% Tropicamide, 2.5% Phenylephrine @ 3:04 PM Slit Lamp and Fundus Exam External Exam Right Left External Normal Normal Slit Lamp Exam Right Left Lids/Lashes Normal Normal Conjunctiva/Sclera Normal Normal Cornea tr spee, lower TBUT tr spee, lower TBUT Anterior Chamber Deep and Quiet Deep and Quiet Iris Round and Reactive Round and Reactive Lens Clear Clear Vitreous Normal Normal Fundus Exam Right Left Disc Normal Normal C/D Ratio 0.2 0.2 Macula Normal Normal Vessels Normal Normal Periphery Normal Normal Diagnoses and all orders for this visit: Inflammatory arthritis - psoriatric arthritis vs ankylosing spondylitis, seroneg spondylarthropathy - OCT, Retina - OU - Both Eyes - Color Fundus Photography - OU - Both Eyes - rheumatology - [place] [facility], Humira 40 mg subcutaneous approved and started a week ago, on methotrexate 17.5 mg solution weekly, folic acid 2 mg po qdaily - supervisor marble - Dr. 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 - Continue dupilumab - Continue triamcinolone 0.025% cream to affected areas BID for up to 2 weeks - Discussed she can continue methotrexate injections and start Humira per her home service consultant Return in 4 months (on 01/29/2025) for f/up dry eyes , dry eyes, Schirmmers, Refraction. Alondra Chua MD documented in this encounter Plan of Treatment Upcoming Encounters Date Type Department Care Team (Late st Contact Info) Description 01/15/2025 3:45 PM EDT Follow-Up [facility] [address] [place] [address], [place] [phone] Senior Pricing Analyst: Christy Valentine MD [address] [place] [id number] 02/05/2025 10:00 AM EDT Follow-Up [facility] [address] [place] [id number] Alondra Chua MD [address] [place] [phone] documented as of this encounter Procedures * Due to [place] [employer] law, this organization might not be sharing negative HIV tests. Procedure Name Priority Date/Time Associated Diagnosis Comments COLOR FUNDUS PHOTOGRAPHY - OU - BOTH EYES Routine 10/01/2024 4:02 PM EST Inflammatory arthritis OCT, MACULA - OU - BOTH EYES Routine 10/01/2024 4:02 PM EST Inflammatory arthritis documented in this encounter Results * Due to [place] state law, this organization might not be sharing negative HIV tests. * Color Fundus Photography - OU - Both Eyes (10/01/2024 4:02 PM EST) Narrative OPHTHALMOLOGY IMAGING - 10/01/2024 4:02 PM EST Normal fundus OU us Alondra Chua MD OPHTH PHOTOGRAPHY Final R esult Performing Organization Address [facility]/ZIP Co de Phone Number OPHTHALMOLOGY IMAGING * OCT, Retina - OU - Both Eyes (10/01/2024 4:02 PM EST) Narrative OPHTHALMOLOGY IMAGING - 10/01/2024 4:02 PM EST Normal foveal contour no CME OU Alondra Chua MD OPHTH TOMOGRAPHY Final Re sult OPHTHALMOLOGY IMAGING documented in this encounter Visit Diagnoses Diagnosis Inflammatory arthritis- Primary Unspecified inflammatory polyarthropathy Family history of glaucoma Dry eyes, bilateral Atopic dermatitis, unspecified type documented in this encounter Care Teams Pipeline Gang Supervisor Relationship Specialty Start Date End Date Paddy Simms PA PCP - General 10/24/23 documented as of this encounter
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
--- OUTSIDE RECORDS SUMMARY | 2024-10-16 09:27 | XMS_ITS | Encounter Summary ---
Author Organization [facility] Address [address] [place] [address] Care Team Providers Care Histology Tech Name Role Phone Paddy Simms Primary Care Provider [phone] Reason for Referral * Consultation (Routine) - Pending Review Specialty Diagnoses / Procedures Referred By Contac t Referred To Contact Ophthalmology Diagnoses Photophobia Christy Carver MD [address] [place] [address] Phone: tel: fax: [facility] [address] [place] [address] Phone: tel: fax: Referral ID Status Reason Start Date Expiration Date Visits Requested Visits Authorized [id number] Pending Review Specialty Services Required 09/19/2024 03/21/2026 6 6 Reason for Visit * Reason Comments Skin Problem Biopsy * Dermatology (Routine) - Pending Review Specialty Diagnoses / Procedures Referred By Contac t Referred To Contact Dermatology Diagnoses Dermatitis, unspecified [facility] [address]th [address] [place] [address], [place] [address] Phone: tel: fax: Referral ID Status Reason Start Date Expiration Date V isits Requested Visits Authorized [id number] Pending Review 10/19/2023 04/19/2025 6 6 Encounter Details Date Type Department Care Team (Late st Contact Info) Description 09/19/2024 10:00 AM EST Follow-Up [facility] 4th Floor [address] [facility], Fourth [place] [address] Liner Machine Operator: Christy Valentine MD [address] [place] [phone] Atopic dermatitis, unspecified type (Primary Dx); Photophobia; Arthritis Social History Tobacco Use Types Packs/Day Years Used Date Smoking Tobacco: Never Smokeless Tobacco: Never Comments Unknown Sex and Gender Information Value Date Recorded Sex Assigned at Female 10/19/2023 11:17 AM EST Legal Sex Female 7:24 PM EDT Gender Identity Female 11/10/2023 9:42 AM EDT Sexual Orientation Lesbian or Whiteside 11/10/2023 9: 42 AM EDT documented as of this encounter Progress Notes * iL Luevano MD - 09/19/2024 10:29 AM EST DERMATOLOGY OFFICE VISIT CHIEF COMPLAINT: dermatitis HPI: Polly Guy is a 29 y.o. female who is seen in follow up at [facility] Department of Dermatology for dermatitis follow up. LV 01/29/2024 for eczematous dermatitis when she continued on methotrexate with significant improvement and held off on starting dupilumab. Since the LV, she started dupilumab injections ~June 2024 during a flare, continues on methotrexate injections (increased to 0.7 mL by diesel mechanic), and recently completed a 3-week prednisone taper (15 -> 10 -> 5) yesterday. She is set to start Humira tomorrow, managed by her diesel mechanic. No topicals. No side effects from dupilumab. Reports new photophobia but no conjunctivitis. Her diesel mechanic was interested in a second skin biopsy to differentiate eczema vs psoriasis. Scalp, nails, and groin are unaffected. Today her eczematous dermatitis is well controlled as she just came off the prednisone taper yesterday. When she stopped her prior prednisone taper in the fall, the dermatitis and her joint symptoms flared. She had history of eczema as a child in her antecubital and popliteal fossae which resolved. This rash started a few years ago. 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 Arthritis, spondyloarthrophy (ankylosing spondylitis vs psoriatic arthritis), starting Humira 08/2024; on methotrexate and prednisone tapers Adult Basic Education Instructor is Dr. Jose Juan Garcia at [facility] in [place] MEDICATIONS, ALLERGIES, PAST MEDICAL HISTORY, FAMILY HISTORY and SOCIAL HISTORY All were reviewed in patient's chart. REVIEW OF SYSTEMS: Patient is feeling well and has no complaints other than those noted above. PHYSICAL EXAM: The patient is a well-appearing female in no distress with a pleasant mood. Targeted skin exam was performed today including the scalp, face, arms, hands, chest, abdomen, back, legs and reveals: - Scalp with no scale - Hyperpigmented macules on the abdomen - Hyperpigmented patches c/w PIH on the bilateral upper arms, elbows - Umbilicus clear - Nails with no pitting ASSESSMENT & PLAN: 1. Atopic dermatitis, chronic/stable, based on biopsy results and prior presentation Well controlled today with post inflammatory hyperpigmented patches with no active lesions as she completed a prednisone taper yesterday. - Continue dupilumab - Continue triamcinolone 0.025% cream to affected areas BID for up to 2 weeks - Discussed she can continue methotrexate injections and start Humira per her diesel mechanic - Reviewed biopsy results from 10/2023 which showed spongiotic dermatitis concerning for atopic dermatitis vs allergic contact dermatitis - Discussed can consider oral LULY inhibitors if no improvement - Reviewed sensitive skin care practices - Referral sent to Ophthalmology - patient reporting new photophobia, advised her to see an cotton baler to rule out any uveitis We asked the patient to call us with any new or changing lesions, problems, or questions arising prior to the next visit. FOLLOW UP: Return in about 4 months (around 01/17/2025) for eczematous dermatitis f/u. Cosigned by Christy Carver MD at 09/19/2024 12:46 PM EST Associated attestation - Christy Carver MD - 09/19/2024 12:46 PM EST I saw and evaluated the patient. I discussed the case with the resident/fellow and agree with the findings and plan as documented in the resident/fellow???s note. documented in this encounter Plan of Treatment Upcoming Encounters Date Type Department Care Team (Late st Contact Info) Description 01/15/2025 3:45 PM EDT Follow-Up [facility] 4th Floor [address] [place] [address], Fourth [place] [address] Liner Machine Operator: Christy Valentine MD [address] [place] [phone] 02/05/2025 10:00 AM EDT Follow-Up [facility] [address] [place] [phone] Alondra Chua MD [address] [place] [phone] Scheduled Referrals Name Type Priority Associated Diagnoses Order Schedule Ambulatory referral to Ophthalmology Outpatient Referral Routine Photophobia Expected: 09/19/2024, Expires: 03/19/2025 documented as of this encounter Visit Diagnoses Diagnosis Atopic dermatitis, unspecified type- Primary Photophobia Visual discomfort Arthritis Unspecified arthropathy, site unspecified documented in this encounter Care Teams Histology Tech Relationship Specialty Start Date End Date Paddy Simms PA PCP - General 10/24/23 documented as of this encounter
--- OUTSIDE RECORDS SUMMARY | 2024-10-16 09:27 | XMS_ITS | Encounter Summary ---
Author Organization [employer] Address [address] [facility] 7t [place] [address] Care Team Providers Care Sweet Potato Disintegrator Name Role Phone Paddy Simms Primary Care Provider Encounter Details Date Type Department Care Team ([facility] st Contact Info) Description 10/31/2023 Abstract [facility] [address] [place] [phone] Paddy Simms PA [address] [place], [place] [phone] Social History Tobacco Use Types Packs/Day Years [...] on file documented as of this encounter Procedures Procedure Name Priority Date/Time Associated Diagnosis Comments PAP SMEAR Routine 05/21/2021 12:00 AM EDT documented in this encounter Results * Pap Smear (05/21/2021 12:00 AM EDT) Swab us Historical Provider MD LAB CYTOLOGY ORDERABLES F inal Result [facility] [address], [place] [address] documented in this encounter Visit Diagnoses Not on filedocumented in this encounter Care Teams Sweet Potato Disintegrator Relationship Specialty Start Date End Date Paddy Simms PA [address] [place] [phone] PCP - General Family Medicine 03/18/23 documented as of this encounter
--- OUTSIDE RECORDS SUMMARY | 2024-10-16 09:27 | XMS_ITS | Encounter Summary ---
Author Organization [employer] Address [address] [facility] 7t [place] [address] Care Team Providers Care Excelsior Picker Name Role Phone Paddy Simms Primary Care Provider [phone] Encounter Details Date Type Department Care Team ([facility] st Contact Info) Description 08/05/[address] [phone] Paddy Simms PA [address] [place] [address] [phone] Social History Tobacco Use Types Packs/Day Years [...] the past 12 months, has t he [employer], gas, oil or water [employer] threatened to shut off services in your [...] AM EDT documented as of this encounter Miscellaneous Notes * Telephone Encounter - Cintia Bingham - 08/06/2024 4:04 PM EST Processed and faxed Auth #[id number] Valid 07/14/24-07/14/25 Visits: 10 * Telephone Encounter - Chip Daly - 08/05/2024 9:32 AM EST Verified Insurance: Referral Office: [facility] Rhe[facility]ology Diagnosis Code: M47.819 Number of Visits Needed: 10 NPI# of Facility: [id number] NPI# of Provider being referred to: Phone #: [phone] Fax #: [phone] Start Date: 07/14/24 documented in this encounter Plan of Treatment Not on file documented as of this encounter Visit Diagnoses Not on filedocumented in this encounter Care Teams Excelsior Picker Relationship Specialty Start Date End Date Paddy Simms PA [address] [place] [address] PCP - General Family Medicine 03/18/23 documented as of this encounter
--- OUTSIDE RECORDS SUMMARY | 2024-10-16 09:27 | XMS_ITS | Encounter Summary ---
Author Organization [employer] Address [address] [place] [address] 7t [place] [address] Care Team Providers Care Employee Adviser Name Role Phone Paddy Simms Primary Care Provider [phone] Reason for Visit * Reason Comments Eye Problem Happening on and off for about a year burning in eyes, has seen derm they rec seeing an eye doc will be seen there next week Encounter Details Date Type Department Care Team (Late st Contact Info) Description 09/23/2024 10:40 AM EST Office Visit [facility] [address] [place] [phone] Chan Owen PA-C [address] [place], [place] [phone] Discomfort of both eyes (Primary Dx) Social History Tobacco Use Types Packs/Day Years [...] AM EDT documented as of this encounter Last Filed Vital Signs Vital Sign Reading Time Taken Comments Blood Pressure 98/61 09/23/2024 10:51 AM EST Pulse 81 09/23/2024 10:51 AM EST Temperature 36.6 ??C (97.9 ??F) 09/23/2024 10:[address] Respiratory Rate - - Oxygen Saturation 99% 09/23/2024 10:51 AM EST Inhaled Oxygen Concentration - - Weight - - Height - - Body Mass Index - - documented in this encounter Progress Notes * Chan Owen PA-C - 09/23/2024 10:40 AM EST This visit documentation was prepared using voice-enabled artificial intelligence software (ambientclinical notes). Assessment/Plan Problem List Items Addressed This Visit Discomfort of both eyes - Primary Current Assessment & Plan 29 y/o adult with pmhx significant for inflammatory arthritis currently alternating between Dupilumab and Humira injections on a biweekly schedule, with methotrexate injections also part of the treatment regimen. Established with Rheumatology and dermatology. Recently completed two [id number] prednisone tapers, each following a 15-10-5 mg schedule, with two weeks in between. Reports history of intermittent photophobia, difficulties with night vision, eye aching, and excessive tearing for the past year. Denies any visual loss or double vision. Physical exam mostly unremarkable, patient experienced discomfort when looking at periphery with EOM. Given pmhx and current symptoms, concern for uv eitis. Discussed that uveitis can have multiple causes and that further diagnostic clarity with diagnostic testing through speciality will help determine most appropriate treatment regimen. Patient also recently completed two prednsione tapers, deferred at this time. - Patient has follow up with ophthalmology scheduled on 10/01/24, will attend appointment - If patient's symptoms worsen prior to ophthalmology appointment, can consider topical steroid eyedrop. Patient expressed understanding and is in agreement with plan No follow-ups on file. No future appointments. Subjective Constance Guy is a 29 y.o. female who presents for Eye Problem (Happening on and off for about a year burning in eyes, has seen derm they rec seeing an eye doc will be seen there next week ). Patient is a 29 y/o adult that presents today for bilateral eye discomfort. They report symptoms have been ongoing for about a year, causing significant difficulty with night driving due to glare andoncoming lights. Additionally, symptoms include intense aching behind the eyes, a burning sensation, and significant photophobia, which have become more frequent and persistent. The patient describesthe discomfort as a searing sensation when blinking, with the burning lasting for weeks. The use ofgel eye drops provides only temporary relief. There is no reported loss of vision or blurry vision.Patient does have history of allergies and uses zyrtec which helps alleviate congestion and itching, not the eye discomfort. Objective BP 98/61 (BP Location: Right arm, Patient Position: Sitting, BP Cuff Size: Adult) Pulse 81 Temp97.9 ??F (36.6 ??C) (Temporal) SpO2 99% Physical Exam Constitutional: Appearance: Normal appearance. Eyes: General: Lids are normal. Lids are everted, no foreign bodies appreciated. Right eye: No foreign body, discharge or hordeolum. Left eye: No foreign body, discharge or hordeolum. Conjunctiva/sclera: Right eye: Right conjunctiva is not injected. No chemosis or exudate. Left eye: Left conjunctiva is not injected. No chemosis or exudate. Comments: EOM intact, no nystagmus noted, patient reported discomfort with peripheral vision, conjunctivae clear, no foreign bodies appreciated Skin: General: Skin is warm and dry. Neurological: General: No focal deficit present. Mental Status: She is alert and oriented to person, place, and time. Psychiatric: Mood and Affect: Mood normal. Behavior: Behavior normal. documented in this encounter Miscellaneous Notes * Assessment & Plan Note - Chan Owen PA-C - 09/23/2024 8:11 AM ESTAssociated Problem(s): Discomfort of both eyes 29 y/o adult with pmhx significant for inflammatory arthritis currently alternating between Dupilumab and Humira injections on a biweekly schedule, with methotrexate injections also part of the treatment regimen. Established with Rheumatology and dermatology. Recently completed two [id number] prednisone tapers, each following a 15-10-5 mg schedule, with two weeks in between. Reports history of intermittent photophobia, difficulties with night vision, eye aching, and excessive tearing for the past year. Denies any visual loss or double vision. Physical exam mostly unremarkable, patient experienced discomfort when looking at periphery with EOM. Given pmhx and current symptoms, concern for uv eitis. Discussed that uveitis can have multiple causes and that further diagnostic clarity with diagnostic testing through speciality will help determine most appropriate treatment regimen. Patient also recently completed two prednsione tapers, deferred at this time. - Patient has follow up with ophthalmology scheduled on 10/01/24, will attend appointment - If patient's symptoms worsen prior to ophthalmology appointment, can consider topical steroid eyedrop. Patient expressed understanding and is in agreement with plan documented in this encounter Plan of Treatment Not on file documented as of this encounter Visit Diagnoses Diagnosis Discomfort of both eyes- Primary documented in this encounter Care Teams Employee Adviser Relationship Specialty Start Date End Date Paddy Simms PA [address] [place] [phone] PCP - General Family Medicine 03/18/23 documented as of this encounter
--- OUTSIDE RECORDS SUMMARY | 2024-10-16 09:27 | XMS_ITS | Encounter Summary ---
Author Organization [facility] Address [address] [place] [address] Care Team Providers Care Legal Records Clerk Name Role Phone Paddy Simms Primary Care Provider [phone] Reason for Visit * Reason Onset Date Comments PAC Nurse Scheduling Request 09/19/2024 Inf lammatory arthritis/photophobia ? uveitis Encounter Details Date Type Department Care Team (Late st Contact Info) Description 09/19/2024 Telephone [facility] [address] [address] Cheryl Sandoval RN PAC Nurse Scheduling Request (Inflammatory arthritis/photophobia ? uveitis) Social History Tobacco Use Types Packs/Day Years [...] encounter Miscellaneous Notes * Telephone Encounter - Cheryl Sandoval RN - 09/19/2024 3:38 PM EST New patient with referral from derm ? Uveitis. Patient with hx of inflammatory arthritis and worsening photophobia with some eye pain. Patient requesting and [place] location due to school schedule. Patient booked into avail appointment 10/24 and added to the wait list. Patient is aware she will be contacted at [phone] with any changes to this appointment documented in this encounter Plan of Treatment Upcoming Encounters Date Type Department Care Team (Late st Contact Info) Description 01/15/2025 3:45 PM EDT Follow-Up [facility] 4th Floor [address] [place] [address], Fourth [place] [address] Non Cdl Driver: Christy Valentine MD [address] [place] [address] 02/05/2025 10:00 AM EDT Follow-Up [facility] [address] [place] [address] Alondra Chua MD [address] [place] [phone] documented as of this encounter Visit Diagnoses Not on filedocumented in this encounter Care Teams Legal Records Clerk Relationship Specialty Start Date End Date Paddy Simms PA PCP - General 10/24/23 documented as of this encounter
--- OUTSIDE RECORDS SUMMARY | 2024-10-16 09:27 | XMS_ITS | Clinical Summary ---
Author Organization [facility] Address [address] [place] [address] Care Team Providers Care Infant Caregiver Name Role Phone Paddy Simms Primary Care Provider [phone] Allergies Active Allergy Reactions Criticality Noted Date Comments Hydroxyzine Other (see comments) 12/25/2017 Other reaction(s): Other (See Comments) feels high, then sleep too much feels high, then sleep too much Milk Containing Products (Dairy) Other (see comments) 12/01/2017 Intolerance Pineapple Swelling High 11/09/2001 Lip swelling [place] Other (see comments) 11/26/2018 Lip burning Medications triamcinolone acetonide (KENALOG) 0.025% cream Apply topically to the affected area 2 times a day. Apply to affected area Active ruxolitinib (OPZELURA) 1.5 % topical creamIndicatio ns:Atopic dermatitis, unspecified type Apply a thin layer twice daily to affected areas of up to 20% body surface area. Do not exceed more than 60 g/week or 100 g every two weeks. 60 g 3 4 6:46 PM EDT 11/10/19 24 Active naltrexone (REVIA) 50 mg tablet SMARTSI.5 Tablet(s) By Mouth Every Morning Active levocetirizine (XYZAL) 5 mg tablet Take 10 mg by mouth daily. Active midodrine (PROAMATINE) 5 mg tablet SMARTSI Tablet(s) By Mouth 3 Times Daily Active pyridostigmine (MESTINON) 60 mg tablet Take 60 mg by mouth 3 times daily. 07/12/20 18 025 Active colestipoL (COLESTID) 1 gram tablet SMARTSI Tablet(s) By Mouth Twice Daily 12/14/19 24 Active METOPROLOL TARTRATE 12.5 MG PO SPLIT TABLET (LOPRESSOR) 09/11/19 22 Active buPROPion XL (WELLBUTRIN XL) 300 mg tablet SMARTSI Tablet(s) By Mouth Every Morning Active Vyvanse 30 mg capsule SMARTSI Capsule(s) By Mouth Every Morning Active dupilumab (DUPIXENT) 300 mg/2 mL syringe injection Inject 2 mL (300 mg total) under the skin every 14 days. 4 mL 5 5 11:24 PM EST 08/29/19 25 Active folic acid (FOLVITE) 1 mg tablet Take 2 mg by mouth once a day. Active BD Tuberculin Syringe 1 mL 27 x 1/2 syringe USE ONE SYRINGE WEEKLY WITH METHOTREXATE INJECTION 07/08/20 24 Active methotrexate, PF, 7.5 mg/0.15 mL auto-injectorI ndications:Art hritis Inject 0.35 mL (17.5 mg total) under the skin every 7 days. 09/19/19 25 Active cycloSPORINE (RESTASIS) 0.05% ophthalmic emulsion Instill 1 drop into both eyes 2 times a day. 60 each 10/01/19 25 Active perfluorohexyl octane, PF, 100 % drops Instill 1 drop into affected eye(s) 4 times a day. 3 mL 10/01/19 25 Active methotrexate (TREXALL) 2.5 mg tablet SMARTSI Tablet(s) By Mouth Once a Week 025 Discontinued Active Problems No known active problems Encounters Date Type Department Care Team Description 10/09/2024 myChart Message [facility] 2nd Floor [address] [facility], [place] [address] Forming Department Supervisor: Christy Valentine MD Rasuvo 10/01/2024 2:45 PM EST Office Visit [facility] [address] [place] [address] Alondra Chua MD Inflammatory arthritis (Primary Dx); Family history of glaucoma; Dry eyes, bilateral; Atopic dermatitis, unspecified type 09/19/2024 10:00 AM EST Follow-Up [facility] [address] [address] Forming Department Supervisor: Christy Valentine MD Atopic dermatitis, unspecified type (Primary Dx); Photophobia; Arthritis 09/19/2024 myChart Message [facility] [address] [place] [address] Cheryl Sandoval, DUNCAN Current Eye Discomfort 09/19/2024 Telephone [facility] [address] [address] Cheryl Sandoval, DUNCAN PAC Nurse Scheduling Request (Inflammatory arthritis/photophobia ? uveitis) 09/19/2024 Telephone [facility] [address]nd [address] [place] [address], [place] [address] Forming Department Supervisor: Christy Valentine MD Prior Authorization (methotrexate, PF, 7.5 mg/0.15 mL auto-injector/methotre xate, PF, 17.5 mg/0.35 mL auto-injector) 08/29/2024 Orders Only [facility] [address] [address] Forming Department Supervisor: Christy Valentine MD 08/29/2024 Telephone [facility] [address] [address] Forming Department Supervisor: John Connell 08/26/2024 ZALPhart Message [facility] [address] [address] Forming Department Supervisor: Christy Valentine MD Question about Dupixent from Last 3 Months Social History Tobacco Use Types Packs/Day Years Used Date Smoking Tobacco: Never Smokeless Tobacco: Never Tobacco Cessation:Counseling Given: Not Answered Comments Unknown Sex and Gender Information Value Date Recorded Sex Assigned at Female 10/19/2023 11:17 AM EST Legal Sex Female 7:24 PM EDT Gender Identity Female 11/10/2023 9:42 AM EDT Sexual Orientation Lesbian or Whiteside 11/10/2023 9: 42 AM EDT Plan of Treatment Upcoming Encounters Date Type Department Care Team (Late st Contact Info) Description 01/15/2025 3:45 PM EDT Follow-Up [facility] 4th Floor [address] [place] [address], Fourth [place] [address] Forming Department Supervisor: Christy Valentine MD [address] [place] [phone] 02/05/2025 10:00 AM EDT Follow-Up [facility] [address] [place] [address] Alondra Chua MD [address] [place] [address] Health Maintenance Due Date Last Done Comments HIV Screening 1995 Varicella Vaccines (1 of 2 - 13+ 2-dose series) 2008 Hepatitis B Vaccines (2 of 3 - 19+ 3-dose series) 02/07/2023 01/10/2023 COVID-19 Vaccine ( season) 2024 08/08/2023, 01/10/2023, 04/06/2022, Additional history exists Pap Smear 05/21/2024 05/21/2021 Alcohol/Substance Use Screening 08/21/2024 Depression Screening and Follow-Up 08/21/2024 Social Drivers of Health Annual Screening 08/21/2024 DTaP,Tdap,and Td Vaccines (2 - Td or Tdap) 06/08/2031 06/08/2021 RSV Vaccine (60+ years old and patients) (1 - 1-dose 75+ series) 2070 Pneumococcal Vaccine: Pediatric (0-5 Years) and At-Risk Patients (6-50 Years) Aged Out 11/29/2018 No longer eligible based on patient's age to complete this topic Hepatitis C Screening Completed 06/30/2022 Influenza Vaccine Completed 05/20/2024, , 06/08/2021 Procedures * Due to [place] [employer] law, this organization might not be sharing negative HIV tests. Procedure Name Priority Date/Time Associated Diagnosis Comments COLOR FUNDUS PHOTOGRAPHY - OU - BOTH EYES Routine 10/01/2024 4:02 PM EST Inflammatory arthritis OCT, MACULA - OU - BOTH EYES Routine 10/01/2024 4:02 PM EST Inflammatory arthritis from Last 3 Months Results * Due to [place] [employer] law, this organization might not be sharing negative HIV tests. * Color Fundus Photography - OU - Both Eyes (10/01/2024 4:02 PM EST) Narrative OPHTHALMOLOGY IMAGING - 10/01/2024 4:02 PM EST Normal fundus OU Alondra Chua MD OPHTH PHOTOGRAPHY Final R esult Performing Organization Address [facility] Co de Phone Number OPHTHALMOLOGY IMAGING * OCT, Retina - OU - Both Eyes (10/01/2024 4:02 PM EST) Narrative OPHTHALMOLOGY IMAGING - 10/01/2024 4:02 PM EST Normal foveal contour no CME OU Alondra Chua MD OPHTH TOMOGRAPHY Final Re sult Performing Organization Address [facility] Co de Phone Number OPHTHALMOLOGY IMAGING from Last 3 Months Insurance [facility] Advance Directives Documents on File Type Date Recorded Patient Magnetic Tape Winder Expl [facility] Care Proxy 11/14/2016 12:00 AM 11/14 Care Teams Infant Caregiver Relationship Specialty Start Date End Date Paddy [place]ms PA PCP - General 10/24/23
--- OUTSIDE RECORDS SUMMARY | 2024-10-16 09:27 | XMS_ITS | Encounter Summary ---
Author Organization [employer] Address [address] [facility] 7t [place] [address] Care Team Providers Care Lead Installer Name Role Phone Paddy Simms Primary Care Provider Encounter Details Date Type Department Care Team ([facility] st Contact Info) Description 09/20/[address] [address] Paddy Simms PA [address] [place] [address] [phone] Social History Tobacco Use Types Packs/Day Years [...] the past 12 months, has t he [employer], gas, oil or water [employer] threatened to shut off services in your [...] encounter Miscellaneous Notes * Telephone Encounter - Shania Chino LPN - 09/20/2024 9:10 AM EST Spoke to pt stated every 2 or 3 weeks both eyes burn, are feeling achy , and cause photo-phobia, Ptstated saw her coach cleaner and wanted pt to see eye md for this, but [facility] Pt is concerned and would like a provider to look at eyes. Pt is unable to come into office today but did schedule an appointment for 09/23/24 at 1040 with . Protocol Used: Eye Pain and Other Symptoms (Adult) Protocol-Based Disposition: See in Office Today Positive Triage Questions: * Eye pain present > 24 hours * Mild eye pains are a recurrent problem * All higher-acuity triage questions were negative Care Advice Discussed: * Reasons To Call Back - Pain increases - You become worse * Telephone Encounter - Dolores Brian - 09/20/2024 7:19 AM EST Patient would like to be seen for eye pain,burning and watery eyes [phone] documented in this encounter Plan of Treatment Not on file documented as of this encounter Visit Diagnoses Not on filedocumented in this encounter Care Teams Lead Installer Relationship Specialty Start Date End Date Paddy Simms PA [address] [place] [phone] PCP - General Family Medicine 03/18/23 documented as of this encounter
--- OUTSIDE RECORDS SUMMARY | 2024-10-16 09:27 | XMS_ITS | Encounter Summary ---
Author Organization [employer] Address [address] [facility] 7t [place] [address] Care Team Providers Care Machine Bookkeeper Name Role Phone Paddy Simms Primary Care Provider [phone] Encounter Details Date Type Department Care Team ([facility] st Contact Info) Description 08/09/[address] [address] Paddy Simms PA [address] [place] [address] [phone] Social History Tobacco Use Types Packs/Day Years [...] the past 12 months, has t he [employer], gas, oil or water [employer] threatened to shut off services in your [...] encounter Miscellaneous Notes * Telephone Encounter - Alida Kumari - 08/09/2024 12:05 PM EST Verified Insurance: No Referral Office: [facility] Diagnosis Code: Arthritis Number of Visits Needed: 6 NPI# of Facility: NPI# of Provider being referred to: [id number] Dr Jose Juan Garcia [address] [place] [address] Dr Jessica MARRERO [id number] Phone #: [phone] Fax #: documented in this encounter Plan of Treatment Not on file documented as of this encounter Visit Diagnoses Not on filedocumented in this encounter Care Teams Machine Bookkeeper Relationship Specialty Start Date End Date Paddy Simms PA [address] [place] [phone] PCP - General Family Medicine 03/18/23 documented as of this encounter
--- OUTSIDE RECORDS SUMMARY | 2024-10-16 09:27 | XMS_ITS | Encounter Summary ---
Author Organization [facility] Address [address] [place] [address] Care Team Providers Care Grommet Man Name Role Phone Paddy Simms Primary Care Provider [phone] Reason for Visit * Reason Onset Date Comments Prior Authorization 09/19/2024 methotrexate , PF, 7.5 mg/0.15 mL auto-injectormethotrexate, PF, 17.5 mg/0.35 mL auto-injector Encounter Details Date Type Department Care Team (Late st Contact Info) Description 09/19/2024 Telephone [facility] 2nd Floor [address] [place] [address], Second Floor [place], [place] [phone] Floor Worker Well Service: Christy Valentine MD [address] [place] [phone] Prior Authorization (methotrexate, PF, 7.5 mg/0.15 mL auto-injector/methotrexa te, PF, 17.5 mg/0.35 mL auto-injector) Social History Tobacco Use Types Packs/Day Years [...] encounter Miscellaneous Notes * Telephone Encounter - John Childers - 10/09/2024 2:57 PM EST PETERSON Ellis denied by insurance due to diagnosis (they want a diagnosis of RA or plaque psoriasis) and they are asking if patient has had an oral trial of methotrexate? Should we appeal decision as well? Thank you, * Telephone Encounter - Ilana Shane - 10/04/2024 10:09 AM EST Images from the original note were not included. Keshawn WINKLER was denied by [employer]. They want a diagnosis of either rheumatoid arthritis or plaque psoriasis with a previous trial of oral methotrexate. documented in this encounter Plan of Treatment Upcoming Encounters Date Type Department Care Team (Late st Contact Info) Description 01/15/2025 3:45 PM EDT Follow-Up [facility] 4th Floor [address] [place] [address], [place] [address] Floor Worker Well Service: Christy Valentine MD [address] [place] [phone] 02/05/2025 10:00 AM EDT Follow-Up [facility] [address] [place] [address] Alondra Chua MD [address] [place] [phone] documented as of this encounter Visit Diagnoses Not on filedocumented in this encounter Care Teams Grommet Man Relationship Specialty Start Date End Date Pdady Simms PA PCP - General 10/24/23 documented as of this encounter
--- OUTSIDE RECORDS SUMMARY | 2024-10-16 09:28 | XMS_ITS | Encounter Summary ---
Author Organization [facility] Address [address] [place] [address] Care Team Providers Care Orthotist Prosthetist Name Role Phone Paddy Simms Primary Care Provider [phone] Encounter Details Date Type Department Care Team (Late st Contact Info) Description 08/26/2024 myChart Message [facility] 4th [address] [place] [phone] Cardiac Care Nurse: Christy Valentine MD [address] [place] [phone] Question about Dupixent Social History Tobacco Use Types Packs/Day Years [...] Info) Description 01/15/2025 3:45 PM EDT Follow-Up [facility] 4th [address] [place] [phone] Cardiac Care Nurse: Christy Valentine MD [address] [place] [phone] 02/05/2025 10:00 AM EDT Follow-Up [facility] Eye [address] [address] Alondra Chua MD [address] [place] [phone] documented as of this encounter Visit Diagnoses Not on filedocumented in this encounter Care Teams Orthotist Prosthetist Relationship Specialty Start Date End Date Paddy Simms PA PCP - General 10/24/23 documented as of this encounter
--- OUTSIDE RECORDS SUMMARY | 2024-10-16 09:28 | XMS_ITS | Referral Summary ---
Author Organization [facility] Address [address] [place] [address] Care Team Providers Care Plane Runner Name Role Phone Paddy Simms Primary Care Provider Encounters Date Type Department Care Team Description 10/09/2024 myChart Message [facility] 2nd [place] [address] Courier: Christy Valentine MD [facility] 10/01/2024 2:45 PM EST Office Visit [facility] [address] [address] Alondra Chua MD Inflammatory arthritis (Primary Dx); Family history of glaucoma; Dry eyes, bilateral; Atopic dermatitis, unspecified type 09/19/2024 BlogHerhart Message [facility] [address] [address] Cheryl Sandoval RN Current Eye Discomfort 09/19/2024 Telephone [facility] [address] [phone] Cheryl Sandoval RN PAC Nurse Scheduling Request (Inflammatory arthritis/photophobia ? uveitis) 09/19/2024 Telephone [facility] [address] [phone] Courier: Christy Valentine MD Prior Authorization (methotrexate, PF, 7.5 mg/0.15 mL auto-injector/methotre xate, PF, 17.5 mg/0.35 mL auto-injector) 09/19/2024 10:00 AM EST Follow-Up [facility] [address] [place] [address], [place] [address] Courier: Christy Valentine MD Atopic dermatitis, unspecified type (Primary Dx); Photophobia; Arthritis 08/29/2024 Orders Only [facility] [address], [place] [address] Courier: Christy Valentine MD 08/29/2024 Telephone [facility] [address] [place] [address], [place] [phone] Courier: John Connell 08/26/2024 myChart Message [facility] [address] [place] [address], [place] [phone] Courier: Christy Valentine MD Question about Dupixent from Last 3 Months Allergies Active Allergy Reactions Criticality Noted Date Comments Hydroxyzine Other (see comments) 12/25/2017 Other reaction(s): Other (See Comments) feels high, then sleep too much feels high, then sleep too much Milk Containing Products (Dairy) Other (see comments) 12/01/2017 Intolerance Pineapple Swelling High 11/09/2001 Lip swelling [place] Other (see comments) 11/26/2018 Lip burning Medications [...] Discontinued Active Problems No known active problems Social History Tobacco Use Types Packs/Day Years [...] Info) Description 01/15/2025 3:45 PM EDT Follow-Up [facility] [address]th [address] [place] [address], Fourth [place] [phone] Courier: Christy Valentine MD [address] [place] [address] 02/05/2025 10:00 AM EDT Follow-Up [facility] [address] [place] [address] Alondra Chua MD [address] [place] [phone] Procedures * Due to [place] [employer] law, this organization might not be sharing negative HIV tests. Procedure Name Priority Date/Time Associated Diagnosis Comments COLOR FUNDUS PHOTOGRAPHY - OU - BOTH EYES Routine 10/01/2024 4:02 PM EST Inflammatory arthritis OCT, MACULA - OU - BOTH EYES Routine 10/01/2024 4:02 PM EST Inflammatory arthritis from Last 3 Months Results * Due to [place] [employer] law, this organization might not be sharing negative HIV tests. * Color Fundus Photography - OU - Both Eyes (10/01/2024 4:02 PM EST) Narrative OPHTHALMOLOGY IMAGING - 10/01/2024 4:02 PM EST Normal fundus OU Alondra Chua MD OPHTH PHOTOGRAPHY Final R esult OPHTHALMOLOGY IMAGING * OCT, Retina - OU - Both Eyes (10/01/2024 4:02 PM EST) Narrative OPHTHALMOLOGY IMAGING - 10/01/2024 4:02 PM EST Normal foveal contour no CME OU Alondra Chua MD OPHTH TOMOGRAPHY Final Re sult Performing Organization Address City/[facility]/ZIP Co de Phone Number OPHTHALMOLOGY IMAGING from Last 3 Months Insurance [facility] Advance Directives Documents on File Type Date Recorded Patient Mobile Architect [facility] Proxy 11/14/2016 12:00 AM 11/14 Care Teams Plane Runner Relationship Specialty Start Date End Date Paddy Simms PA PCP - General 10/24/23
== END 2024-10-16 09:21 | disposition home or self-care (01) ==
PROVIDERS: Visit Provider Internal Medicine Rheumatology
DX: M47.819 Spondylosis without myelopathy or radiculopathy, site unspecified (principal); Z79.899 Other long term (current) drug therapy
CPT/HCPCS: 99214

== ENCOUNTER → 2024-10-17 09:23 | Outpatient (BNVA) | payer MEDICAID, SELFPAY | PROVIDERS: Visit Provider Internal Medicine Rheumatology ==

== ENCOUNTER 2025-03-18 14:40 | Outpatient (AMB) | payer MEDICAID, SELFPAY ==
--- NOTE | 2025-03-18 14:52 | A.OFFVIS_ITS ---
Vital Signs 03/18/25 14:53 Height 5 ft 6.7 in Weight 149 lb BMI 23.5 BP 100/60 Pulse 72 Pulse Source Pulse Oximeter Pulse Oximetry (%) 99 Oxygen Delivery Method Room Air Intake Visit Reasons: 2 months Intake Note: Patient presents for follow up on spondyloarthritis. Allergies hydroxyzine (From Atarax) Allergy (Mild, Verified 03/18/25 14:53) bradycardia pineapple Allergy (Mild, Verified 03/18/25 14:53) mouth burning, lip swelling meloxicam Allergy (Mild, Uncoded 08/29/24 13:13) Stomach Upset HPI HPI 2 months: Details: She is experiencing left SI joint pain and has noticed that she has reduced internal and external rotation of bilateral hips. No new joint swelling. There was a month where she did not have Humira and skin lesions reappeared. Specifically there was a new skin lesion on her right elbow. [facility] Surgical History S/P bilateral breast reduction S/P removal of ovarian cyst H/O umbilical hernia repair Family History Mother Non Hodgkin lymphoma, stage IIA Father Hypertension Diabetes 1.5, managed as type 2 Sister Type 2 diabetes mellitus Physical Exam Vital Signs: Last Vital Signs Pulse 72 03/18/25 14:53 BP 100/60 03/18/25 14:53 Pulse Ox 99 03/18/25 14:53 Oxygen Delivery Method Room Air 03/18/25 14:53 BMI result Body Mass Index 23.5 Const Other: General: Comfortable CVS: RRR Respiratory: clear to auscultation bilaterally. Good respiratory effort Skin: Hyperpigmented circular lesions on anterior chest. MSK: Tender bilateral IP hands. Normal range of motion of upper extremities and lower extremities. No dactylitis present. Right suprapatellar mild effusion. Tender left SI joint and lower lumbar spinous process. Normal lumbar flexion. 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 Humira benefit is not lasting the full 2 weeks. She has developed left chronic SI joint pain. We discussed next steps in management. I we will increase frequency of Humira to weekly. Optimizing TNF inhibitor is imperative for obtaining better control of axial inflammatory arthritis. Conventional DMARDs such as methotrexate are ineffective in controlling axial inflammatory arthritis. Diagnosed based on history of dactylitis 08/09/2023 with persistent arthralgias, inflammatory back pain (SI joint and L-spine x-ray 10/10/2023 normal), normal inflammatory markers and seronegative (RF/CCP/TREVOR/HLA-B27). Celebrex is more effective than meloxicam. Methotrexate 10/2023 to present has improved polyarthralgias. Methotrexate P.o. was switched to subcutaneous injection due to GI side effects. 08/2024 dactylitis of hands and bilateral feet failed treatment with Celebrex in conjunction with methotrexate. Humira 08/2024-. Celebrex change to nabumetone due to uncontrolled axial inflammatory back pain 02/2025. Code(s): M47.819 - Spondylosis without myelopathy or radiculopathy, site unspecified Category: Medical Plan: Humira PA subcutaneous injection weekly Labs for drug monitoring on high-risk medication up-to-date. Lab requisition given to patient to have done in 2 months local to her home. Continue methotrexate subcutaneous injection 17.5 mg once weekly. She will call office if she is unable to obtain syringes from her local pharmacy. She is paying for syringes out of pocket. We will try to find out if there is another syringe that can be used with MTX and covered by her insurance. Continue folic acid 2mg daily X-ray bilateral SI joints ordered for patient to have done local to her home PT ordered for back strengthening, hip strengthening anterior improve hip range of motion. Requisition given to have done local to her home or at [facility] in [place] where she will be pursuing studies Celebrex changed to nabumetone 500 mg twice a day. She will call office if nabumetone is ineffective in controlling her back pain RTC 3 months (2) Other alf (current) drug therapy: Code(s): Z79.899 - Other long term care phlebotomist (current) drug therapy Category: Medical Plan: see above (3) Chronic left SI joint pain: Comment: Imaging in the past has been negative. She had an MRI of her pelvis without contrast in the past but I do not have report. I will be following up with repeat x-ray to evaluate for radiographic progression of axial inflammatory arthritis. Code(s): M53.3 - Sacrococcygeal disorders, not elsewhere classified; G89.29 - Other chronic pain Category: Medical Plan: See above Orders: Orders Complete Blood Count Auto Diff 2 Months M47.819 - Spondylosis without myelopathy or radiculopathy, site unspecified, Z79.899 - Other alf (current) drug therapy Aspartate Amino Transferase 2 Months M47.819 - Spondylosis without myelopathy or radiculopathy, site unspecified, Z79.899 - Other long term care phlebotomist (current) drug therapy Creatinine 2 Months M47.819 - Spondylosis without myelopathy or radiculopathy, site unspecified, Z79.899 - Other long term care phlebotomist (current) drug therapy Erythrocyte Sedimentation Rate 2 Months M47.819 - Spondylosis without myelopathy or radiculopathy, site unspecified, Z79.899 - Other long term care phlebotomist (current) drug therapy PT Evaluation and Treatment Today G89.29 - Other chronic pain, M47.819 - Spondylosis without myelopathy or radiculopathy, site unspecified, M53.3 - Sacrococcygeal disorders, not elsewhere classified, Z79.899 - Other long term care phlebotomist (current) drug therapy Alanine Aminotransferase 2 Months M47.819 - Spondylosis without myelopathy or radiculopathy, site unspecified, Z79.899 - Other long term care phlebotomist (current) drug therapy C Reactive Protein 2 Months M47.819 - Spondylosis without myelopathy or radiculopathy, site unspecified, Z79.899 - Other long term care phlebotomist (current) drug therapy XR sacroiliac joint min 3V Today G89.29 - Other chronic pain, M47.819 - Spondylosis without myelopathy or radiculopathy, site unspecified, M53.3 - Sacrococcygeal disorders, not elsewhere classified Medications: New nabumetone Replace celebrex 500 mg PO BID 60 tabs 2RF Changed From adalimumab (Humira(CF)) Replace previous rx. 40 mg (0.4 mL) subcut Q2W 2 ea 0RF M47.819 - Spondylosis without myelopathy or radiculopathy, site unspecified To adalimumab (Humira(CF)) 40 mg (0.4 mL) subcut QWEEK 2 ea 3RF M47.819 - Spondylosis without myelopathy or radiculopathy, site unspecified From methotrexate sodium Inject 0.7 mL (17.5 mg) once weekly subcutaneously. Increased dose. 17.5 mg (0.7 mL) subcut QWEEK 4 mL 2RF To methotrexate sodium Inject 0.7 mL (17.5 mg) once weekly subcutaneously. 17.5 mg (0.7 mL) subcut QWEEK 4 mL 2RF Refilled 2 folic acid 2 mg (2 x 1 mg) PO DAILY 180 tabs 3RF syringe with needle (Monoject TB) Injection weekly with methotrexate 500 ea 0RF Discontinued celecoxib (Celebrex) Take with food. Discontinued Reason: Doctor's Order 200 mg PO BID 60 caps 2RF Coding Level of Care Code Est Pt Level 4 (39170) Complex EM visit Add On G2211 Diagnoses Spondyloarthritis M47.819 Other alf (current) drug therapy Z79.899 Chronic left SI joint pain M53.3; G89.29
[2025-03-18 14:53] VITALS: BP 100/60; PULSE 72; O2SAT 99; BMI 23.5
--- OUTSIDE RECORDS SUMMARY | 2025-03-18 15:23 | XMS_ITS | Encounter Summary ---
Author Organization [employer] Address [address] [facility] 7t [place] [address] Care Team Providers Care And Rescue Fire Fighter Crash Fire Name Role Phone Paddy Simms Primary Care Provider [phone] Encounter Details Date Type Department Care Team ([facility] st Contact Info) Description 08/05/2024 Telephone [facility] [address] [place] [address] Paddy Simms PA [address] [place], [place] [phone] Social History Tobacco Use Types Packs/Day Years [...] the past 12 months, has t he [employer], [employer], oil or water [employer] threatened to shut off services in your [...] 4:04 PM EST Processed and faxed Auth #[id number] Valid 07/14/24-07/14/25 Visits: 10 * Telephone Encounter - Chip Daly - 08/05/2024 9:32 AM EST Verified Insurance: Referral Office: [facility] Diagnosis Code: M47.819 Number of Visits Needed: 10 NPI# of Facility: [id number] NPI# of Provider being referred to: Phone #: [phone] Fax #: [phone] Start Date: 07/14/24 documented in this encounter Plan of Treatment Not on file documented as of this encounter Visit Diagnoses Not on filedocumented in this encounter Care Teams And Rescue Fire Fighter Crash [employer] Relationship Specialty Start Date End Date Paddy Simms PA [address] [place] [phone] PCP - General Family Medicine 03/18/23 documented as of this encounter
--- OUTSIDE RECORDS SUMMARY | 2025-03-18 15:23 | XMS_ITS | Encounter Summary ---
Author Organization [facility] Address [address] [address] Phone Care Team Providers Care Open Hearth Melter Name Role Phone Denia Hassan CNM Unavailable Sury Carter BENDER HELPER Unavailable Divya Lopez CNM Unavailable Home Peacock MD Unavailable Madina Keane BENDER HELPER Unavailable Elvia Fishman MD Unavailable [phone] Karlie Gupta MD Unavailable Emerita Fernandez MD Unavailable Wei Velásquez MD Unavailable Divya Ahuja RDCS Unavailable [email or web address] Vijay Field MD Unavailable [phone] Turner Devlin MD Unavailable [phone] Karlie Gupta MD Primary Care Provider Amy Cardoso DO Primary Care Provider [phone] Amy Cardoso DO Unavailable Ana Melgar MD Primary Care Provider Areli Cramer MD Primary Care Provider + Areli Cramer MD Primary Care Provider + Ana Melgar MD Primary Care Provider [phone] Amy Cardoso DO Unavailable [phone] Paddy Simms Primary Care Provider [phone] Encounter Details Date Type Department Care Team (Latest Contact Info) Description 04/24/2018 Transcribe Orders [facility] Laboratory [address] [place] [address] Len Trinidad MD [address] [place] [address] [email or web address] Diagnosis unknown (Primary Dx) Social History Tobacco Use Types Packs/Day Years Used Date Smoking Tobacco: Former Cigarettes Q uit: 06/21/2017 Smokeless Tobacco: Former Alcohol Use Standard Drinks/Week Comments No 0 (1 standard drink = 0.6 oz pur e alcohol) Comments No Sex and Gender Information Value Date Recorded Sex Assigned at Female 11/15/2017 2:31 PM EDT Legal Sex Female 1:50 PM EDT Gender Identity Female 11/15/2017 2:31 PM EDT Sexual Orientation Lesbian or Whiteside 12/09/2020 3: 02 PM EDT documented as of this encounter Plan of Treatment Upcoming Encounters Date Type Department Care Team (Late st Contact Info) Description 06/04/2025 9:20 AM EDT Office Visit [facility] [address] [place] [address] 3rd Floor, [address] [place] [address] Branden Elias MD [address] [place] [address], [address] [phone] [email or web address] documented as of this encounter Results * Stool culture (06/15/2018 7:00 AM EDT) Specimen Source/ Description STOOL STOOL STOOL [facility] Special Requests None [facility] Culture/Test NO SALMONELLA, SHIGELLA OR CAMPYLOBACTER ISOLATED No gram negative deborah isolated [facility] Report Status 06/18/2018 FINAL [facility] Stool (Stool) 06/15/2018 7:0 0 AM EDT 06/15/2018 8:17 AM EDT us Len Trinidad MD MICROBIOLOGY - GENERAL ORDERAB LES Final Result [facility] [address] [place] [address] documented in this encounter Visit Diagnoses Diagnosis Diagnosis unknown- Primary documented in this encounter Additional Health Concerns Infection Onset Date Last Indicated Resolved Time CoV-Risk 02/24/2021 02/24/2021 03/06/2021 1:23 AM EDT CoV-Risk 03/17/2021 03/17/2021 03/19/2021 11:4 5 AM EDT CoV-Exposed Comment:Recent close contact documented in the COVID-19 PCR/PRO order 04/12/2021 04/16/2021 04/27/2021 1:23 AM E DT documented as of this encounter Care Teams Open Hearth Melter Relationship Specialty Start Date End Date Karlie Gupta MD [address] [place] [address], [address] [place] [address] [email or web address] PCP - General Internal Medicine 09/20/17 08/27/18 Amy Cardoso DO [address] [place] [address] [email or web address] PCP - General Family Medicine 08/28/18 12/24/20 Ana Melgar MD [address] [place] [address] [email or web address] PCP - General Family Medicine 12/25/20 02/23/21 Areli Cramer MD [address] [place] [address] PCP - General Family Medicine 02/26/21 03/01/21 Areli Cramer MD [address] [place] [address] PCP - General Family Medicine 02/24/21 02/25/21 Ana Melgar MD [facility] [address] [place] [address] PCP - General Family Medicine 03/02/21 08/02/23 Paddy Simms PA [address] [place] [address] PCP - General 08/03/23 Denia Hassan CNM [address] [place] [address], [facility] [address] [place] [address] Historical LMR Provider 06/07/17 08/28/21 Sury Carter NP [address] [place] [address] Historical LMR Provider 06/07/17 2 Divya Lopez CNM [address] [place] [address] Historical LMR Provider 06/07/17 2 Home Peacock MD [address] [place] [address], [facility] [address] [place] [address] Historical LMR Provider 06/07/17 Madina Keane, BENDER HELPER [address] [place] [address] [email or web address] Historical LMR Provider 06/07/17 08/28/21 Elvia Fishman MD [address] [place] [address] Historical LMR Provider 06/07/17 Karlie Gupta MD [address] [place] [address] [email or web address] Historical LMR Provider 06/07/17 Emerita Fernandez MD [address] [address] [email or web address] Historical LMR Provider 06/07/17 Wei Velásquez MD 22 [facility], [address] [place] [address] [email or web address] Historical LMR Provider 06/07/17 iDvya Ahuja, CS [email or web address] Historical LMR Provider 06/07/17 08/28/21 Vijay Field MD [address] [place] [address] Historical LMR Provider 06/07/17 2 Turner Devlin MD [address] [place] [address] [email or web address] Historical LMR Provider 06/07/17 Amy Cardoso DO [address] [place] [address] [email or web address] Insurance Assigned Provider 10/24/20 12/22/20 Amy Cardoso DO [address] [place] [address] [email or web address] Insurance Assigned Provider 10/24/20 03/27/21 documented as of this encounter Additional Source Comments The information contained in this document represents components of the legal health record. It is not the complete legal health record.[facility]
--- OUTSIDE RECORDS SUMMARY | 2025-03-18 15:23 | XMS_ITS | Clinical Summary ---
Author Organization [facility] Address [address] [place] [address] Care Team Providers Care Furs Salesperson Name Role Phone Paddy Simms Primary Care Provider [phone] Allergies Active Allergy Reactions Criticality Noted Date Comments Hydroxyzine Other (see comments) 12/25/2017 Other reaction(s): Other (See Comments) feels high, then sleep too much feels high, then sleep too much Milk Containing Products (Dairy) Other (see comments) 12/01/2017 Intolerance Pineapple Swelling High 11/09/2001 Lip swelling H[place] Other (see comments) 11/26/2018 Lip burning Medications triamcinolone acetonide (KENALOG) 0.025% cream Apply topically to the affected area 2 times a day. Apply to affected area Active ruxolitinib (OPZELURA) 1.5 % topical creamIndication s:Atopic dermatitis, unspecified type Apply a thin layer twice daily to affected areas of up to 20% body surface area. Do not exceed more than 60 g/week or 100 g every two weeks. 60 g 3 11/20/2023 6:46 PM EDT 4 Active naltrexone (REVIA) 50 mg tablet SMARTSI.5 Tablet(s) By Mouth Every Morning Active levocetirizine (XYZAL) 5 mg tablet Take 10 mg by mouth daily. Active midodrine (PROAMATINE) 5 mg tablet SMARTSI Tablet(s) By Mouth 3 Times Daily Active colestipoL (COLESTID) 1 gram tablet SMARTSI Tablet(s) By Mouth Twice Daily 4 Active METOPROLOL TARTRATE 12.5 MG PO SPLIT TABLET (LOPRESSOR) 2 Active buPROPion XL (WELLBUTRIN XL) 300 mg tablet SMARTSI Tablet(s) By Mouth Every Morning Active dupilumab (DUPIXENT) 300 mg/2 mL syringe injection Inject 2 mL (300 mg total) under the skin every 14 days. 4 mL 5 10/10/2024 11:24 PM EST 5 Active folic acid (FOLVITE) 1 mg tablet Take 2 mg by mouth once a day. Active BD Tuberculin Syringe 1 mL 27 x 1/2 syringe USE ONE SYRINGE WEEKLY WITH METHOTREXATE INJECTION 4 Active methotrexate, PF, 7.5 mg/0.15 mL auto-injectorIn dications:Arthr itis Inject 0.35 mL (17.5 mg total) under the skin every 7 days. 5 Active cycloSPORINE (RESTASIS) 0.05% ophthalmic emulsion Instill 1 drop into both eyes 2 times a day. 60 each 11 5 Active perfluorohexylo ctane, PF, 100 % drops Instill 1 drop into affected eye(s) 4 times a day. 3 mL 11 5 Active crisaborole (Eucrisa) 2 % ointmentIndicat ions:Atopic dermatitis, unspecified type Apply topically to the affected area 2 times a day. For eczema 60 g 5 5 Active fluocinonide (LIDEX) 0.05% ointmentIndicat ions:Atopic dermatitis, unspecified type Apply twice daily x 2 weeks to rash or itchy areas, then daily x 2 weeks, then 2-3 times a week as needed. Do not use on face, underarms, groin, breasts, or buttocks. 180 g 3 5 Active lisdexamfetamin e (VYVANSE) 40 mg capsule SMARTSI Capsule(s) By Mouth Every Morning 5 Active pyridostigmine (MESTINON) 60 mg tablet Take 60 mg by mouth 3 times daily. 5 Active celecoxib (CeleBREX) 200 mg capsule 5 Active Humira,CF, 40 mg/0.4 mL syringe kit 05/05/202 5 Active Active Problems No known active problems Encounters Date Type Department Care Team Description 02/04/2025 Telephone [facility] [address] [place] [address] Telephone Intake, Staff PAC Appt Request - Established 01/15/2025 3:45 PM EDT Office Visit [facility] [address] [phone] Construction Contractor: Christy Valentine MD Atopic dermatitis, unspecified type (Primary Dx); Dyshidrotic eczema 12/30/2024 myChart Message [facility] [address] [address] Construction Contractor: Christy Valentine MD new topical 12/30/2024 Orders Only [facility] [address] [phone] Construction Contractor: Christy Valentine MD Atopic dermatitis, unspecified type (Primary Dx) 12/24/2024 Refill [facility] [address] [place] [phone] Construction Contractor: Christy Valentine MD Atopic dermatitis, unspecified type 12/24/2024 Telephone [facility] [address] [place] [address] [phone] Construction Contractor: Christy Valentine MD Non-Covered/Excluded - PAC Retail Pharm Denial; Lack Of Clin Documentation-PAC Retail Pharm Denial 12/23/2024 myChart Message [facility] [address] [place] [phone] Construction Contractor: Christy Valentine MD dupilumab 12/23/2024 Orders Only [facility] [address] [phone] Construction Contractor: Christy Valentine MD Atopic dermatitis, unspecified type (Primary Dx) 12/20/2024 Telephone [facility] [address] [place] [address] [phone] Construction Contractor: Afia Souza Prior Authorization from Last 3 Months Social History Tobacco [...] Care Team (Late st Contact Info) Description 08/01/2025 10:45 AM EST Office Visit [facility] [address] [place] [address] [phone] Construction Contractor: Christy Valentine MD [address] [place] [address] 08/27/2025 12:00 PM EST Follow-Up [facility] [address] [place] [address] Alondra Chua MD [address] [place] [address] Health Maintenance Due Date Last Done Comments Varicella Vaccines (1 of 2 - 13+ 2-dose series) 2008 Hepatitis B Vaccines (2 of 3 - 19+ 3-dose series) 02/07/2023 01/10/2023 COVID-19 Vaccine ( season) 2024 08/08/2023, 01/10/2023, 04/06/2022, Additional history exists Pap Smear 05/21/2024 05/21/2021 Alcohol/Substance Use Screening 08/21/2024 Depression Screening and Follow-Up 08/21/2024 Social Drivers of Health Annual Screening 08/21/2024 Influenza Vaccine (#1) 2025 4, 05/05/2023, 06/08/2021 DTaP,Tdap,and Td Vaccines (2 - Td or Tdap) 06/08/2031 06/08/2021 RSV Vaccine (60+ years old and patients) (1 - 1-dose 75+ series) 2070 Pneumococcal Vaccine: Pediatric (0-5 Years) and At-Risk Patients (6-50 Years) Aged Out 11/29/2018 No longer eligible based on patient's age to complete this topic Hepatitis C Screening Completed 06/30/2022 HIV Screening Completed 05/25/2023 Insurance [facility] Advance Directives Documents on File Type Date Recorded Patient Senior Licensing Manager Expl [facility] Health Care Proxy 11/14/2016 12:00 AM 11/14 Care Teams Furs Salesperson Relationship Specialty Start Date End Date Paddy Simms PA PCP - General 10/24/23
== END 2025-03-18 15:32 | disposition home or self-care (01) ==
PROVIDERS: PCP Physician Assistant Medical; Visit Provider Internal Medicine Rheumatology
DX: M47.819 Spondylosis without myelopathy or radiculopathy, site unspecified (principal); Z79.899 Other long term (current) drug therapy; M53.3 Sacrococcygeal disorders, not elsewhere classified; G89.29 Other chronic pain
CPT/HCPCS: 99214

== ENCOUNTER → 2025-03-18 14:40 | Outpatient (BNVA) | payer MEDICAID, SELFPAY | PROVIDERS: Visit Provider Internal Medicine Rheumatology | DX: M47.817 Spondylosis without myelopathy or radiculopathy, lumbosacral region (principal); M46.1 Sacroiliitis, not elsewhere classified; Z79.899 Other long term (current) drug therapy; G89.29 Other chronic pain | CPT/HCPCS: 99212 ==

== ENCOUNTER 2025-06-25 12:47 | Outpatient (AMB) | payer MEDICAID, SELFPAY ==
--- NOTE | 2025-06-25 12:53 | MHC.OFFVIS ---
Vital Signs 06/25/25 12:54 Height 5 ft 6.75 in Weight 150 lb BMI 23.7 BP 98/80 Blood Pressure Location Rt brachial Position Sitting Pulse 76 Pulse Source Pulse Oximeter Pulse Oximetry (%) 96 Oxygen Delivery Method Room Air Intake Visit Reasons: 3 months Intake Note: Patient presents for follow up on spondyloarthritis. Accompanied by: Self / Same As Patient Allergies hydroxyzine (From Atarax) Allergy (Mild, Verified 03/18/25 14:53) bradycardia pineapple Allergy (Mild, Verified 03/18/25 14:53) mouth burning, lip swelling meloxicam Allergy (Mild, Uncoded 08/29/24 13:13) Stomach Upset HPI HPI 3 months: Details: Costochondritis exacerbated 2 weeks ago. She has started experiencing hand stiffness that is lasting all day a week ago. Toes have been painful and swollen for at least 10 days. She has been off of Humira for a month. She had a URI about a month ago. She continues to take methotrexate and nabumetone. [facility] Surgical History S/P bilateral breast reduction S/P removal of ovarian cyst H/O umbilical hernia repair Family History Mother Non Hodgkin lymphoma, stage IIA Father Hypertension Diabetes 1.5, managed as type 2 Sister Type 2 diabetes mellitus Physical Exam Vital Signs: Last Vital Signs Pulse 76 06/25/25 12:54 BP 98/80 06/25/25 12:54 Pulse Ox 96 06/25/25 12:54 Oxygen Delivery Method Room Air 06/25/25 12:54 BMI result Body Mass Index 23.7 Const Other: General: Comfortable CVS: RRR Respiratory: clear to auscultation bilaterally. Good respiratory effort Skin: Hyperpigmented circular lesions on anterior chest. MSK: Tender left 1st MCP and left. Normal range of motion of upper extremities and lower extremities. Tender to palpate right 5th MTP with synovitis present. Tender along the right sternum on palpation. 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 She was in remission on Humira weekly dosing, which was controlling inflammatory arthritis, psoriasis and costochondritis. Her insurance is not covering Humira weekly dosing. They will cover hadlima every other week, which is suboptimal dosing. . Diagnosed based on history of dactylitis 08/09/2023 with persistent arthralgias, inflammatory back pain (SI joint and L-spine x-ray 10/10/2023 normal), normal inflammatory markers and seronegative (RF/CCP/TREVOR/HLA-B27). Celebrex is more effective than meloxicam. Methotrexate 10/2023 to present has improved polyarthralgias. Methotrexate P.o. was switched to subcutaneous injection due to GI side effects. 08/2024 dactylitis of hands and bilateral feet failed treatment with Celebrex in conjunction with methotrexate. Humira 08/2024-. Celebrex change to nabumetone due to uncontrolled axial inflammatory back pain 02/2025. Code(s): M47.819 - Spondylosis without myelopathy or radiculopathy, site unspecified Category: Medical Plan: Humira PA subcutaneous injection weekly in process. Her Dewayne at [facility] is advocating on her behalf to try to facilitate getting Humira approved. Labs for drug monitoring on high-risk medication up-to-date. Standing order given to patient to have labs done every 3 months Increase methotrexate subcutaneous injection 20 mg once weekly. 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 Code(s): M53.3 - Sacrococcygeal disorders, not elsewhere classified; G89.29 - Other chronic pain Category: Medical Plan: Requesting x-ray report of SI joints ordered February 2025 Orders: Orders Complete Blood Count Auto Diff 3 Months Z79.899 - Other prison (current) drug therapy Alanine Aminotransferase 3 Months Z79.899 - Other prison (current) drug therapy Creatinine 3 Months Z79.899 - Other prison (current) drug therapy C Reactive Protein 3 Months Z79.899 - Other prison (current) drug therapy Erythrocyte Sedimentation Rate 3 Months Z79.899 - Other prison (current) drug therapy Complete Blood Count Auto Diff 09/25/25 Z79.899 - Other prison (current) drug therapy Complete Blood Count Auto Diff 06/22/26 Z79.899 - Other prison (current) drug therapy Alanine Aminotransferase 12/24/25 Z79.899 - Other 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 baker (current) 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 therapy Alanine Aminotransferase 03/24/26 Z79.899 - Other prison (current) drug therapy Alanine Aminotransferase 06/22/26 Z79.899 - Other pizza baker (current) drug therapy Aspartate Amino Transferase 03/24/26 Z79.899 - Other pizza baker (current) drug therapy Aspartate Amino Transferase 06/22/26 Z79.899 - Other prison (current) drug therapy Creatinine 09/25/25 Z79.899 - Other 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 baker (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) 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 therapy C Reactive Protein 12/24/25 Z79.899 - Other pizza baker (current) drug therapy C Reactive Protein 03/24/26 Z79.899 - Other pizza baker (current) drug therapy C Reactive Protein 06/22/26 Z79.899 - Other prison (current) drug therapy Erythrocyte Sedimentation Rate 12/24/25 Z79.899 - Other prison (current) drug therapy Erythrocyte Sedimentation Rate 06/22/26 Z79.899 - Other prison (current) drug therapy Aspartate Amino Transferase 3 Months Z79.899 - Other pizza baker (current) drug therapy Complete Blood Count Auto Diff 12/24/25 Z79.899 - Other prison (current) drug therapy Complete Blood Count Auto Diff 03/24/26 Z79.899 - Other prison (current) drug therapy Alanine Aminotransferase 09/25/25 Z79.899 - Other pizza baker (current) drug therapy Aspartate Amino Transferase 09/25/25 Z79.899 - Other prison (current) drug therapy Aspartate Amino Transferase 12/24/25 Z79.899 - Other prison (current) drug therapy Creatinine 12/24/25 Z79.899 - Other 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 Take prednisone with food. 5 mg PO DIRECTED 30 tabs 0RF Changed From methotrexate sodium Inject 0.7 mL (17.5 mg) once weekly subcutaneously. 17.5 mg (0.7 mL) subcut QWEEK 4 mL 2RF To methotrexate sodium Inject 0.8 mL (20 mg) once weekly subcutaneously. 20 mg (0.8 mL) subcut QWEEK 4 mL 2RF Coding Level of Care Code Est Pt Level 4 (40341) Complex EM visit Add On G2211 Diagnoses Spondyloarthritis M47.819 Other prison (current) drug therapy Z79.899 Chronic left SI joint pain M53.3; G89.29
[2025-06-25 12:54] VITALS: BP 98/80; PULSE 76; O2SAT 96; BMI 23.7
--- OUTSIDE RECORDS SUMMARY | 2025-06-25 15:26 | XMS_ITS | Clinical Summary ---
Author Organization [facility] Address [address] [place] [address] Care Team Providers Care Superintendent Sanitation Name Role Phone Paddy Simms Primary Care Provider [phone] Allergies Active Allergy Reactions Criticality Noted Date Comments Hydroxyzine Other (see comments) 12/25/2017 Other reaction(s): Other (See Comments) feels high, then sleep too much feels high, then sleep too much Milk Containing Products (Dairy) Other (see comments) 12/01/2017 Intolerance Pineapple Swelling High 11/09/2001 Lip swelling [place] Other (see comments) 11/26/2018 Lip burning Medications [...] Active Humira,CF, 40 mg/0.4 mL syringe kit 5 Active Active Problems No known active problems Social [...] Description 08/01/2025 10:45 AM EST Office Visit [facility] 4th [address] [place] [address], [place] [phone] Metal Buggy Operator: Christy Valentine MD [address] [place] [address] 08/27/2025 12:00 PM EST Follow-Up [facility] [address] [place] [address] Alondra Chua MD [address] [place] [address] Health Maintenance Due Date Last Done Comments HPV and Pap Smear 1995 Varicella Vaccines (1 of 2 - 13+ 2-dose series) 2008 Hepatitis B Vaccines (2 of 3 - 19+ 3-dose series) 02/07/2023 01/10/2023 Cervical Cancer Screening 05/21/2024 Pap Smear 05/21/2024 05/21/2021 Alcohol/Substance Use Screening 08/21/2024 Depression Screening and Follow-Up 08/21/2024 Social Drivers of Health Annual Screening 08/21/2024 COVID-19 Vaccine ( season) 2025 08/08/2023, 01/10/2023, 04/06/2022, Additional history exists Influenza Vaccine (#1) 2025 4, 05/05/2023, 06/08/2021 [...] Completed 06/30/2022 HIV Screening Completed 05/25/2023 Insurance [facility] Advance Directives Documents on File Type Date Recorded Patient Enrollment Coordinator Expl [facility] Health Care Proxy 11/14/2016 12:00 AM 11/14 Care Teams Superintendent Sanitation Relationship Specialty Start Date End Date Paddy Simms PA PCP - General 10/24/23
--- OUTSIDE RECORDS SUMMARY | 2025-06-25 15:26 | XMS_ITS | Clinical Summary ---
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 Name Role Phone Hayley Vera APRN Primary Care Provider Allergies Active Allergy Reactions Criticality Noted Date Comments Hydroxyzine Other (See Comments) Medium 12/25/2017 Other reaction(s): Other (See Comments) feels high, then sleep too much Other reaction(s): Other (See Comments) feels high, then sleep too much feels high, then sleep too much feels high, then sleep too much Milk Containing Products (Dairy) Other (See Comments),GI Upset Medium 12/01/2017 Intolerance Other reaction(s): Other (See Comments) Intolerance Pineapple Swelling High 11/09/2001 Lip swelling [place] Other (See Comments) Medium 11/26/2018 Lip burning Medications DENISSE CARREON, 40 mg/0.4 mL syringe kit 12/23/2024 Active buPROPion XL (WELLBUTRIN XL) 300 mg 24 hr tablet Take 1 tablet (300 mg total) by mouth every morning. Active crisaborole (EUCRISA) 2 % ointment Apply topically. 12/23/2024 Active cycloSPORINE (RESTASIS) 0.05 % ophthalmic emulsion Apply 1 drop to eye. 10/01/2024 Active folic acid (FOLVITE) 1 mg tablet Take 2 tablets (2,000 mcg total) by mouth daily. Active levocetirizine (XYZAL) 5 mg tablet Take 2 tablets (10 mg total) by mouth daily. Active VYVANSE 40 mg capsule Take 1 capsule (40 mg total) by mouth every morning. Active methotrexate 25 mg/mL injection solution INJECT 0.7 ML UNDER THE SKIN DIRECTED ONE TIME PER WEEK 04/16/2025 Active metoprolol tartrate (LOPRESSOR) 25 mg Immediate Release tablet 0.5 tablets (12.5 mg total). 07/05/2024 Active midodrine (PROAMATINE) 5 mg tablet Take 1 tablet (5 mg total) by mouth. 03/24/2025 Active nabumetone (RELAFEN) 500 mg tablet TAKE 1 TABLET BY MOUTH TWICE A DAY REPLACES CELEBREX 03/18/2025 Active naltrexone (REVIA) 50 mg tablet take half of a tablet by mouth daily Active MESTINON 60 mg Immediate Release tablet Take 1 tablet (60 mg total) by mouth. Active Encounters Date Type Department Care Team Description 05/20/2025 8:32 PM EDT - 05/20/2025 9:16 PM EDT Emergency [facility]patient [facility] [address] [place] [address] Angelica العلي MD Viral illness (Primary Dx) Discharge Disposition: Home or Self Care from Last 3 Months Immunizations Immunization Administration Dates Next Due Hep B, unspecified formulation 01/10/2023,2021,04/22/2022 Social History Tobacco Use Types Packs/Day Years Used Date Smoking Tobacco: Never Assessed Interpersonal Safety Answer Date Record ed Is there anyone in your life that is hurting or threatening you in anyway? no 05/20/2025 Physical Indicators of Abuse Not on file Comments No Sex and Gender Information Value Date Recorded Sex Assigned at Not on file Legal Sex Female 10:01 PM EDT Gender Identity Not on file Sexual Orientation Not on file Last Filed Vital Signs Vital Sign Reading Time Taken Comments Blood Pressure 110/76 05/20/2025 8:27 PM EDT Pulse 75 05/20/2025 8:27 PM EDT Temperature 36.5 C (97.7 F) 05/20/2025 8:27 PM EDT Respiratory Rate 16 05/20/2025 8:27 PM EDT Oxygen Saturation 99% 05/20/2025 8:27 PM EDT Inhaled Oxygen Concentration - - Weight - - Height - - Body Mass Index - - Plan of Treatment Health Maintenance Due Date Last Done Comments Pneumococcal Vaccine (2 - 49 years) (2 of 2 - PCV) 11/30/2019 11/29/2018 Cervical cancer screening 05/21/2024 05/21/2021 Influenza vaccine 03/21/2025 05/05/2023, 06/08/2021 Covid-19 vaccine series ( season) 2025 08/08/2023, 11/23/2020 Tetanus adult (Td q 10,TDAP once) 06/08/2031 06/08/2021 RSV Immunization (1 - 1-dose 75+ series) 2070 Meningococcal B Vaccine Aged Out 01/25/2023 No l onger eligible based on patient's age to complete this topic HIV screening Completed 05/25/2023 Hepatitis C screening Completed 05/25/2023 Meningococcal Vaccine Aged Out No jeanie williams eligible based on patient's age to complete this topic Procedures Procedure Name Priority Date/Time Associated Diagnosis Comments POCT SARS COV-2 (COVID-19)/INFLUENZ A A+B/RSV (CEPHEID)(NO CHARGE) Routine 05/20/2025 9:15 PM EDT from Last 3 Months Results * POCT SARS COV-2 (COVID-19)/Influenza A+B/RSV (Cepheid) (05/20/2025 9:15 PM EDT) POC SARS COV-2 (COVID-19) PCR Negative Negative [facility] Influenza A Negative Negative [facility] Influenza B Negative Negative [facility] RSV Negative Negative [facility] Kit Lot Number [id number] [facility] Expiration Date 07/26/26 [facility] Internal Control Pass [facility] Swab 05/20/2025 9:15 PM EDT us Angelica اعللي MD POINT OF CARE TEST ORDERABLES Final Result [facility] [place], [place], [facility] from Last 3 Months Insurance [facility] on file Care Teams Cat Sitter Relationship Specialty Start Date End Date Hayley Vera APRN [address] [place] [phone] PCP - General 04/09/25
--- OUTSIDE RECORDS SUMMARY | 2025-06-25 15:26 | XMS_ITS | Clinical Summary ---
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 Active colestipol (COLESTID) 1 gram tabletIndication s:Functional diarrhea Take 1 tablet (1 g total) by mouth 2 (two) times a day. 60 tablet 2 2 Active triamcinolone acetonide 0.025 % cream Apply topically 2 (two) times a day. For eyelids and face - for up to 2 weeks at a time 30 g 2 2 Active triamcinolone acetonide 0.1 % ointment Apply topically 2 (two) times a day. To neck, elbows, for up to 2 weeks at a time 30 g 2 2 Active prochlorperazine (COMPAZINE) 10 MG tabletIndication s:Nausea Take 1 tablet (10 mg total) by mouth every 6 (six) hours as needed. 40 tablet 2 Active nicotine (NICOTROL) 10 mg inhaler Inhale 1 Cartridge into the lungs as needed for smoking cessation. Inhale to back of throat with frequent continuous puffing. As you puff, nicotine is absorbed into your mouth and throat. 168 each 2 2 Active Additional Information Patient not taking.Reported on 05/29/2024 buPROPion (WELLBUTRIN XL) 300 MG ER 24 hr tablet Take 1 tablet (300 mg total) by mouth every morning. 90 tablet 3 2 Active lisdexamfetamine (VYVANSE) 10 mg capsuleIndicatio ns:Binge eating disorder Take 1 capsule (10 mg total) by mouth 2 (two) times a day (once in the morning and once in the afternoon). Try to take your second dose not much later than 1 PM 56 capsule 3 Active folic acid (FOLVITE) 1 MG tablet Take 2 mg by mouth daily. 4 Active methotrexate sodium, PF, 25 mg/mL injection Inject 12.5 mg under the skin once a week. 4 Active metoprolol tartrate (LOPRESSOR) 25 MG tabletIndication s:Medication refill Take 0.5 tablets (12.5 mg total) by mouth 2 (two) times a day. 90 tablet 3 4 Active pyRIDostigmine (MESTINON) 60 mg tabletIndication s:POTS (postural orthostatic tachycardia syndrome) TAKE 1 TABLET BY MOUTH 3 TIMES A DAY. 270 tablet 3 5 Active midodrine (PROAMATINE) 5 MG tabletIndication s:Medication refill TAKE 1 TABLET BY MOUTH THREE TIMES A DAY 270 tablet 3 5 Active Hospital, Clinic, or Other Facility Administered Medication Ordered Dose Route Frequency Start Date End Date Status etonogestrel (NEXPLANON) subdermal implant 68 mgIndications:Nexplanon insertion 68 mg IDrm Every 3 years 12/04/2018 Active Active Problems Problem Noted Date Diagnosed Date Binge eating disorder 04/19/2022 Overview (04/19/2022): PHP --> marlene @ [facility] in 2018 --> 2019 Assessment & Plan (01/18/2023 12:56 PM EDT): To the best of my knowledge, Vyvanse is actually the only FDA approved medication for binge eating disorder so a denial in favor of cheaper alternatives is entirely inappropriate. My guess is that her new insurance assumes that she is using this for ADHD but since she is not I do not anticipate any trouble getting it approved with a prior authorization. I congratulated Constance on the progress she has made since she started medicine and I think her plan to eventually be able to avoid binging without the use of medications sounds wonderful but it is perfectly all right if she needs to use medication for a while yet. We agreed that while she is both working and in school is probably not a realistic time to really be able to address those behaviors in any kind of focused way. Assessment & Plan (05/17/2022 2:25 PM EDT): Constance has reduced the number of days she engages in binging behavior by about half which is really tremendous. She does find that the Vyvanse only lasts about half of her day and, since so much of her binging takes place in the evening, it would be really nice if we could medicate her for a longer period of time in hopes of further reducing the number of days where she binge eats down to, if not 0, at least infrequent. I am going to try prescribing 10 mg twice a day which would probably be ideal. She understands that with the vagaries of insurance this may not be possible and, if not, we will try 20 mg once a day which is of course not the same but might offer a partial improvement on the current state of affairs. Assessment & Plan (04/19/2022 2:18 PM EDT): I thanked Constance for sharing her struggles with me. We discussed that this disease is not simply a question of failed willpower or poor morals but a real disorder. It sounds like she's been very diligent about following behavioral treatment plans and that has been insufficient so at this point I would recommend medication treatment. We'll see if we can get Vyvanse covered as it tends to be well tolerated with excellent results. Reviewed controlled substance regulations. Will start @ 10 mg and titrate up as needed. Vapes nicotine containing substance 04/19/2022 Assessment & Plan (05/17/2022 2:25 PM EDT): Excellent job so far and reducing nicotine consumption and I hope she will be doing better still at our next visit. Assessment & Plan (04/19/2022 2:20 PM EDT): Since she describes enjoying the act of smoking I suggested a nicotine inhaler for NRT. Will eventually need to taper off this but it is a much safer alternative to cigarettes (and safer than e-cigarettes, too). Flexural eczema 10/07/2021 Assessment & Plan (10/07/2021 3:43 PM EST): Agree that COVID was a likely trigger for this flare and reassured pt this should improve with time. Continue gentle skin care as she has been, recommend TAC, low potency for face and higher potency for neck and below. Use for up to 2 weeks at a time PRN flares, OK to resume use periodically for flares, if they happen often can use 2/week for suppression. Family history of breast cancer in mother 2020 Routine medical exam 06/30/2021 Assessment & Plan (07/01/2022 3:31 PM EST): 27 y.o. female here for complete physical exam. Constance is carefully examining what she put into and onto her body to figure out what is triggering her eczema and her other medical comorbidities are stable as noted in the HPI. USPSTF A&B recommendations reviewed with pt. BP: WNL BMI: Body mass index is 26.55 kg/m . Weight loss was not intentional but is a nice side effect of the reduction in her binge eating. She can continue on this dose of Vyvanse indefinitely Pap smears for people age 21-65 with a cervix: reports NILM Pap in 2020 @ [facility] STI testing for teens and adults at risk, and at least one lifetime HIV and hep C test: done today PrEP for persons at high risk of HIV: N/A plans in the next year: N/A no risk for Depression screen: denies IPV screen in women of reproductive age (or others PRN): Negative Smoking cessation counseling: much improved Alcohol use counseling: N/A LTBI screening in people at increased risk: Done previously and normal/negative per pt BrCa screening in women/AFAB people at risk: 7-Question Family History Screening Tool and First-degree relatives with breast or ovarian cancer - referred to genetic counseling Vaccinations: Gardasil #1 today, will get bivalent COVID booster @ pharmacy, had flu shot @ work Last dental visit: up to date Lipid screening to consider statin for primary prevention for adults 40-75, or at younger ages with risk factors: will do Glucose/diabetes screening for people 35 - 70 with BMI >25: normal A1C, but will check fasting glucose for reassurance given polydipsia Assessment & Plan (06/30/2021 4:01 PM EST): 26 y.o. female here for complete physical exam. I recommend that she talk to her sleep doctor about either a different mask to use with the CPAP machine or a different kind of device to treat her sleep apnea. I explained that treating it effectively can help her energy during the day and help reduce her cardiovascular risk. I also explained that if she does not use her CPAP consistently her insurance company will stopped paying for it. Remainder of medical comorbidities are stable as noted above USPSTF A&B recommendations reviewed with pt. BP: WNL BMI: WNL Pap smears for people age 21-65 with a cervix: done last month @ work per pt STI testing for teens and adults at risk, and at least one lifetime HIV and hep C test: Done previously and normal/negative per pt PrEP for persons at high risk of HIV: N/A plans in the next year: No plans for . Prevention: Nexplanon Depression screen: Negative IPV screen in women of reproductive age (or others PRN): Negative Smoking cessation counseling: N/A Alcohol use counseling: N/A LTBI screening in people at increased risk: Done previously and normal/negative per pt BrCa screening in women/AFAB people at risk: 7-Question Family History Screening Tool and First-degree relatives with breast or ovarian cancer - referred for genetic counseling Vaccinations: will schedule COVId booster, otherwise up to date. 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 We discussed that this could be physiologic, or caused by thyroiditis, or caused by a mass or masses. I recommend a TSH and a thyroid ultrasound. If these are both normal and it does not bother her then I do not think she needs any additional work-up. Tachycardia, unspecified 05/19/2020 Assessment & Plan (09/08/2021 4:38 PM EST): Has felt some relief in regard to her symptoms since starting metoprolol at last visit, however, effects seem to wear off later in the day. We discussed the possibility of increasing dose of metoprolol succinate (which she currently takes) versus starting 12.5 mg metoprolol tartrate BID to see if this would make a difference in the symptoms she is experiencing in the evening time. Will start 12.5 mg metoprolol tartrate BID, which she will take when she wakes up in the morning (around 5-6 AM) and then later in the evening around dinner time (around 5-6 PM). 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 nausea constipation Dr Womack. periodic pancreatitis vomiting Hospitalized [facility] several time 2017 responded well to IVF and bowel. 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 Couple admissions nausea pancreatitis dehydration [facility] Nayana Jordygrace [facility] Personally reviewed ECG 09/15/2017 Sinus HR 92 normal axis and intervals., Assessment & Plan (05/29/2024 3:39 PM EDT): Symptoms are under great control on metoprolol tartrate 12.5 mg twice daily and midodrine 5 mg 3 times daily which we will continue. She has had no recent syncope. She intentionally stays very hydrated and has adequate salt in the diet. POTS symptoms are not inhibiting her activities of daily living at this time so we will continue medication management without change. Assessment & Plan (03/22/2022 2:00 PM EDT): She reports she is doing well and is managing her POTS symptoms, though she has more difficulty with managing her symptoms in the summer weather. She is tolerating metoprolol tartrate 12.5 BID well. She is concerning about some weight gained and will be speaking with her PCP about this. There is nothing from a cardiology standpoint that would ludy to change for her to lose weight. She should continue to hydrate, increase sodium and continue metoprolol without change. Follow up in one year. Assessment & Plan (12/05/2019 10:53 AM EDT): Pleasant 24-year-old female who has myriads of symptoms as described above involving various organ groups. As far as cardiology is concerned she does have symptoms which are consistent with autonomic dysfunction though this is exacerbated by her bowel disorders and constant nausea and inability to eat or drink much. She is also on multiple neuro psychogenic medications which would lead to significant ReFlex tachycardia as well as hypotension. She also is dehydrated and undergoes frequent IV saline transfusions. Overall she is much improved by her current situation. She tells me mostly she is being held by doing daily yoga. I told her to add some meditation into her schedule also. We talked about hydration we talked will increase salt intake and refilled her medication. We also talked about possibility of gradual taper of the medications in the future if she would prefer and thought that maybe winter might be the appropriate time once COVID-19 pandemic is over. Assessment & Plan (05/03/2018 10:53 AM EDT): Jeronimo 23-year-old female who has myriads of symptoms as described above involving various organ groups. As far as cardiology is concerned she does have symptoms which are consistent with autonomic dysfunction though this is exacerbated by her bowel disorders and constant nausea and inability to eat or drink much. She is also on multiple neuro psychogenic medications which would lead to significant ReFlex tachycardia as well as hypotension. She also is dehydrated and undergoes frequent IV saline transfusions. Today we decided to wean metoprolol down and start Ivabradine to prevent symptoms of sinus tachycardia. We talked in detail today about her symptoms and changes since last visit as she has incorporated some lifestyle changes. Spent more than 45 minutes with the patient going through counseling and lifestyle and other changes. We talked about various ways to accomplish that. We also talked about some dietary changes which would help her symptomatology. She is actually doing better on her dietary regimen as well as including breathing and relaxation techniques. I did reiterated to her that there is no magic pill to treat her problems but constant and gradual lifestyle changes with and without medications can lead her to a place where she can possibly live a normal life. We will continue to work on this in the future. Assessment & Plan (01/11/2018 5:02 PM EDT): Jeronimo 82-year-old female who has myriads of symptoms as described above involving various organ groups. As far as cardiology is concerned she does have symptoms which are consistent with autonomic dysfunction though this is exacerbated by her bowel disorders and constant nausea and inability to eat or drink much. She is also on multiple neuro psychogenic medications which would lead to significant ReFlex tachycardia as well as hypertension. She also is dehydrated and undergoes frequent IV saline transfusions. We talked in detail today about her symptoms and changes since last visit as she has incorporated some lifestyle changes. Spent more than 45 minutes with the patient going through counseling and lifestyle and other changes. We talked about various ways to accomplish that. We also talked about some dietary changes which would help her symptomatology. She is actually doing better on her dietary regimen as well as including breathing and relaxation techniques. I will see her back in one to 2 weeks and reevaluate her symptomatology. I did reiterated to her that there is no magic pill to treat her problems but constant and gradual lifestyle changes with and without medications can lead her to a place where she can possibly live a normal life. We will continue to work on this in the future. Assessment & Plan (12/21/2017 2:02 PM EDT): Pleasant 82-year-old female who has myriads of symptoms as described above involving various organ groups. As far as cardiology is concerned she does have symptoms which are consistent with autonomic dysfunction though this is exacerbated by her bowel disorders and constant nausea and inability to eat or drink much. She is also on multiple neuro psychogenic medications which would lead to significant ReFlex tachycardia as well as hypertension. She also is dehydrated and undergoes frequent IV saline transfusions. We talked in detail about her symptoms as well as a problem. Spent more than one hour with the patient going through pathophysiology lifestyle and other changes. The sheppard component to her treatment would be hydration and we talked about various paced to accomplish that. We also talked about some dietary changes which would help her symptomatology. I did want to stop her metoprolol at this point and continue her midodrine. He also went over some breathing techniques to balance autonomic system. I will see her back in one to 2 weeks and reevaluate her symptomatology. I did tell her that there is no magic pill to treat her problems but constant and gradual lifestyle changes with and without medications can lead her to a place where she can possibly live a normal life. We will continue to work on this in the future. 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 I would refer her to Dr. Spence in this office and I have arranged for an appointment tomorrow. I have not changed medications pending that evaluation. Assessment & Plan (09/15/2017 10:12 AM EST): Blood work today Trade out Propranolol immediate releat for metoprol succinate 12.5 ( 1/2 of a 25 mg ) morning only Midodrine 5 mf 7 Am 10 AM 2 PM 5PM --- Lasts only 3-4 PM Monitor blood pressure 3 liters Fluid - Chug 1st glass of the day Salt Compression Socks Lower extremity exercise Book: Together we Stand: Riding the Waves of Dysautonomia. 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 Vestibular migraine Overview (03/04/2021): Related to her pots. Takes gabapentin for this Resolved Problems Problem Noted Date Diagnosed Date Resolved Date COVID-19 08/09/2021 04/19/2022 Overview (08/09/2021): On home rapid test Hypertrophy of breast 12/04/[address]plan[address] 12/04/2018 Gastroparesis 12/18/2017 03/02/2021 Joint pain 06/30/2021 Overview (03/04/2021): Question of fibromyalgia Immunizations Immunization Administration Dates Next Due COVID-19 (Pre-06/12) Holly Vaccine, [id number], P F 11/23/2020 HPV9 06/30/2022 Influenza Quadrivalent Preservative Free IM 05/21 Pneumococcal polysaccharide PPSV23 11/29/2018 Tdap 06/08/2021 Family History Medical History Relation Comments Diabetes Father Diabetes mellitus Father Hypertension Father Breast cancer Mother Lymphoma Mother Diabetes mellitus Paternal Grandfather Hypertension Paternal Grandfather Diabetes mellitus Paternal Grandmother Hypertension Paternal Grandmother Rheumatologic disease Sister Leukemia Unspecified Relation Status Comments Father Alive Mother Paternal Grandfather Paternal Grandmother Sister Alive Unspecified Social History Tobacco Use Types Packs/Day Years Used Date Smoking Tobacco: Former Cigarettes Q uit: 03/2022 Smokeless Tobacco: Never Tobacco Cessation:Counseling Given: Not Answered Alcohol Use Standard Drinks/Week Comments Yes 0 (1 standard drink = 0.6 oz pur e alcohol) 1/month Child or Family Care Answer Date Record ed Do you have problems with on e of the following making it difficult for you to work, study, or receive health care? No 06/28/2021 Education Answer Date Recorded Are you interested in more education? Not on napoleon e 07/03/2023 Are you concerned about learning? Not on file 07/03/2023 No 07/03/2023 No 07/03/2023 Food Answer Date Recorded Within the past 6 months we worried whether our food would run out before we got money to buy more. Sometimes True 021 Within the past 6 months the food we bought just didn't last and we didn't have enough money to get more. Never True 03/2021 Residential Stability Answer Date Recor ded What is your housing situation today? I have vandana mejía 06/28/2021 How many times have you moved in the past 12 mon ths? One time 06/28/2021 Paying for Meds Answer Date Recorded Do you have trouble paying for medicines? Yes 06/28/2021 Paying Utility Bills Answer Date Record ed Do you have trouble paying your heating or elect ricity bill? No 06/28/2021 Transportation Answer Date Recorded Has the lack of transportati on kept you from medical appointments or from getting medications? No 06/28/2021 Unemployment Answer Date Recorded Are you currently unemployed or working on a part-time or temporary basis, and looking for work? No 06/28/2021 Digital Access Answer Date Recorded No 01/13/2023 No 01/13/2023 Reliable internet access at home? Not on file 01/13/2023 Device with a working camera? Not on file Comments No Sex and Gender Information Value Date Recorded Sex Assigned at Female 11/15/2017 2:31 PM EDT Legal Sex Female 1:50 PM EDT Gender Identity Female 11/15/2017 2:31 PM EDT Sexual Orientation Lesbian or Whiteside 12/09/2020 3: 02 PM EDT Occupation Industry Job Start Date Job End Date admission [employer] Not on file Not on file Not on file Last Filed Vital Signs Vital Sign Reading Time Taken Comments Blood Pressure 108/70 05/29/2024 3:10 PM EDT Pulse 72 05/29/2024 3:10 PM EDT Temperature 36.3 C (97.3 F) 06/30/2022 8:10 AM EST Respiratory Rate 16 10/07/2021 11:06 AM EST Oxygen Saturation 99% 05/29/2024 3:10 PM EDT Inhaled Oxygen Concentration - - Weight 71.7 kg (158 lb) 05/29/2024 3:10 PM EDT Height 169 cm (5' 6.54 ) 05/29/2024 3:10 PM EDT Body Mass Index 25.09 05/29/2024 3:10 PM EDT Plan of Treatment Health Maintenance Due Date Last Done Comments SMOKING Hx and SMOKELESS TOBACCO SCREENING 2008 PNEUMOCOCCAL VACCINES (0-49 years) (2 of 2 - PCV) 11/30/2019 11/29/2018 DEPRESSION SCREENING 06/28/2022 06/28/2021 PAP SMEAR 05/21/2024 05/21/2021, 11/19, 11/29/2018 INFLUENZA VACCINE (#1) 2025 06/08/2021 COVID-19 VACCINE (2024- season) 2025 01/10/2023, 04/06/2022, 07/02/2021, Additional history exists Adult Td,Tdap Booster 06/08/2031 06/08/2021 HEPATITIS C SCREENING Completed 06/30/2022 HIV ONE-TIME SCREENING (18-65 YEARS) Completed 06/30/2022 HEPATITIS A VACCINES Aged Out No long er eligible based on patient's age to complete this topic HIB VACCINES Aged Out No longer eligi ble based on patient's age to complete this topic MENINGOCOCCAL VACCINES (ACWY) Aged Out No longer eligible based on patient's age to complete this topic MENINGOCOCCAL VACCINES (B) Aged Out N o longer eligible based on patient's age to complete this topic Medical Devices Implanted Type Area Information Management Officer Device Identifier Shelf Expiration Date Model / Serial / Lot Port Vascular [id number] Infusion Low Profile Single Chamber Titanium Device Filled Suture Plug Attachable Polyurethane Catheter Single Lumen Non Coated Ct Compatible Non Mri Safe Power Injectable Slide Lock Connector Non Valved Open - [id number] Implanted:Qty: 1 on 12/26/2017 by Sydni Vazquez MD at [facility] Right: Neck [employer] 08/20/2019 [id number] / / [id number] Procedures Procedure Name Priority Date/Time Associated Diagnosis Comments HEPATITIS C ANTIBODY, QUALITATIVE Routine 06/30/2022 9:02 AM EST Routine medical exam PAP TEST Routine 11/29/2018 12:00 AM EDT from Last 3 Months or Most Recently Relevant to Health Maintenance Results * Hepatitis C antibody, qualitative (06/30/2022 9:02 AM EST) HCV NON-REACTIV E NON-REACTI VE [facility] Blood 06/30/2022 9:02 AM EST 06/30/2022 9:08 AM EST us Ana Melgar MD LAB BLOOD BKR ORDERABLES Fin al Result [address] [address] * Pap Smear (11/29/2018 12:00 AM EDT) 11/29/2018 11/30/2018 1:2 0 PM EDT Narrative SEE NARRATIVE - 12/07/2018 9:11 AM EDT [address] [address] Steam Shovel Runner: Venecia Callahan MD SHOULDER SAWYER Cytology Report FINAL DIAGNOSIS A. PAP SMEAR (SUREPATH) CE: SPECIMEN ADEQUACY: Satisfactory for evaluation; transformation zone present. INTERPRETATION: NEGATIVE FOR INTRAEPITHELIAL LESION OR MALIGNANCY. Coccobacilli consistent with shift in deborah Electronically Signed Out By: PEDRO PABLO Mckeon(ASCP) The Pap test is a screening test primarily for squamous cancers and precursors and has associated false-negative and false-positive results. New technologies such as liquid-based preparations may decrease but will not eliminate all false-negative results. Regular sampling and follow-up of unexplained clinical signs and symptoms are recommended to minimize false negative results. CLINICAL HISTORY Date of Last Menstrual Period: Not Provided Menstrual History: Unknown Other Clinical Conditions: Screening Pap SPECIMEN SOURCE A: PAP SMEAR (SUREPATH) CE Patient Name: POLLY GUY : 1995 (Age: 23) Sex: F Institution: [facility] Location: [facility] Date of Collection: 11/29/2018 Date of Reported: 12/07/2018 09:11 Results to: Amy Cardoso DO Amy Cardoso DO CYTOLOGY ORDERABLES Final Result SEE NARRATIVE from Last 3 Months or Most Recently Relevant to Health [place] [address] [facility] [place] [address] [facility] POS EPO HEALTH TNA O POS EPO [facility]PO [facility] POS EPO [facility]NA HMO POS EPO Advance Directives For more information, please contact: [phone] (9AM - 5PM [facility], Monday-Monday) * Full Code (Presumed) (Latest Code Status on File) Date Activated Date Inactivated Comments 12/26/2017 11:27 AM 12/26/2017 8:36 PM Care Teams Twisting Machine Operator Relationship Specialty Start Date End Date Paddy Simms PA [address] [place] [address] PCP - General 08/03/23 Home Peacock MD 22 [facility], [address] [address] [email or web address] Historical LMR Provider 06/07/17 Karlie Gupta MD [address] [place] [address], 2nd [place] [address] [email or web address] Historical LMR Provider 06/07/17 Wei Velásquez MD [address] [place] [address] [email or web address] Historical LMR Provider 06/07/17 Turner Devlin MD [address] [place] [address] [email or web address] Historical LMR Provider 06/07/17 Additional Source Comments The information contained in this document represents components of the legal health record. It is not the complete legal health record.[facility]
--- OUTSIDE RECORDS SUMMARY | 2025-06-25 15:26 | XMS_ITS | Encounter Summary ---
Author Organization [facility] Address [address] [address] Phone Care Team Providers Care Time Piece Repairer Name Role Phone Denia Hassan CNM Unavailable Sury Carter PROVIDER CONTRACTING CONSULTANT Unavailable Divya Lopez CNM Unavailable Home Peacock MD Unavailable Madina Keane PROVIDER CONTRACTING CONSULTANT Unavailable [phone] Elvia Fishman MD Unavailable [phone] Karlie Gupta MD Unavailable Emerita Fernandez MD Unavailable Wei Velásquez MD Unavailable Divya Ahuja RDCS Unavailable [email or web address] Vijay Field MD Unavailable Turner Devlin MD Unavailable Karlie Gupta MD Primary Care Provider Amy Cardoso DO Primary Care Provider [phone] Amy Cardoso DO Unavailable Ana Melgar MD Primary Care Provider Areli Cramer MD Primary Care Provider + Areli Cramer MD Primary Care Provider + Ana Melgar MD Primary Care Provider [phone] CardosoAmy DO Unavailable [phone] Paddy Simms Primary Care Provider [phone] Encounter Details Date Type Department Care Team (Latest Contact Info) Description 04/16/2018 Transcribe Orders [address] [place] [address] Len Trinidad MD [address] [place] [address] [email or web address] Abnormal stools (Primary Dx) Social History Tobacco Use Types [...] as of this encounter Visit Diagnoses Diagnosis Abnormal stools- Primary Abnormal feces documented in this encounter Additional Health Concerns Infection Onset Date Last Indicated Resolved Time CoV-Risk 02/24/2021 02/24/2021 03/06/2021 1:23 AM EDT CoV-Risk 03/17/2021 03/17/2021 03/19/2021 11:4 5 AM EDT CoV-Exposed Comment:Recent close contact documented in the COVID-19 PCR/PRO order 04/12/2021 04/16/2021 04/27/2021 1:23 AM E DT documented as of this encounter Care Teams Time Piece Repairer Relationship Specialty Start Date End Date Karlie Gupta MD [address] [place] [address], 2nd [place] [address] [email or web address] PCP - General Internal Medicine 09/20/17 08/27/18 Amy Cardoso DO [address] [place] [address] [email or web address] PCP - General Family Medicine 08/28/18 12/24/20 Ana Melgar MD [address] [address] [email or web address] PCP - General Family Medicine 12/25/20 02/23/21 Areli Cramer MD [address] [place] [address] [email or web address] PCP - General Family Medicine 02/26/21 03/01/21 Areli Cramer MD [address] [place] [address] [email or web address] PCP - General Family Medicine 02/24/21 02/25/21 Ana Melgar MD [address] [place] [address] [email or web address] PCP - General Family Medicine 03/02/21 08/02/23 Paddy Simms PA [address] [place] [address] PCP - General 08/03/23 Denia Hassan CNM 22 [facility], [address] [place] [address] Historical LMR Provider 06/07/17 08/28/21 Sury Carter NP [address] [place] [address] Historical LMR Provider 06/07/17 2 Divya Lopez CNM [address] [place] [address] Historical LMR Provider 06/07/17 2 Home Peacock MD [address] [place] [address] Historical LMR Provider 06/07/17 Madina Keane NP [address] [place] [address] Historical LMR Provider 06/07/17 08/28/21 Elvia Fishman MD [address] [place] [address] Historical LMR Provider 06/07/17 Karlie Gupta MD [address] [place] [address] Historical LMR Provider 06/07/17 Emerita Fernandez MD [address] [place] [address] Historical LMR Provider 06/07/17 Wei Velásquez MD [address] [place] [address] [email or web address] Historical LMR Provider 06/07/17 Divya Ahuja RDCS [email or web address] Historical LMR Provider 06/07/17 08/28/21 Vijay Field MD [address] [place] [address] Historical LMR Provider 06/07/17 2 Turner Devlin MD [address] [address] [email or web address] Historical LMR Provider 06/07/17 Amy Cardoso DO [address] [place] [address] [email or web address] Insurance Assigned Provider 10/24/20 12/22/20 Amy Cardoso DO [address] [place] [address] [email or web address] Insurance Assigned Provider 10/24/20 03/27/21 documented as of this encounter Additional Source Comments The information contained in this document represents components of the legal health record. It is not the complete legal health record.[facility]
--- OUTSIDE RECORDS SUMMARY | 2025-06-25 15:26 | XMS_ITS | Encounter Summary ---
Author Organization [facility] Address [address] [address] Phone Care Team Providers Care Audit Reviewer Name Role Phone Karlie Gupta MD Primary Care Provider Denia Hassan CNM Unavailable Sury Carter AMMONIA REFRIGERATION TECHNICIAN Unavailable Divya Lopez CNM Unavailable Home Peacock MD Unavailable Madina Keane AMMONIA REFRIGERATION TECHNICIAN Unavailable [phone] Elvia Fishman MD Unavailable [phone] Karlie Gupta MD Unavailable Emerita Fernandez MD Unavailable Wei Velásquez MD Unavailable Divya Ahuja RDCS Unavailable [email or web address] Vijay Field MD Unavailable [phone] Turner Devlin MD Unavailable [phone] Smiley Han MD Primary Care Provider Karlie Gupta MD Primary Care Provider [phone] Amy Cardoso DO Primary Care Provider [phone] Amy Cardoso DO Unavailable [phone] Ana Melgar MD Primary Care Provider [phone] Areli Cramer MD Primary Care Provider + Areli Cramer MD Primary Care Provider + Ana Melgar MD Primary Care Provider [phone] Amy Cardoso DO Unavailable [phone] Paddy Simms Primary Care Provider [phone] Encounter Details Date Type Department Care Team (Late st Contact Info) Description 07/12/2017 Procedure Pass [facility] ENDO DEPT 55 [facility], 4th [place] [address] Social History Tobacco Use Types Packs/Day Years Used Date Smoking Tobacco: Every Day Comments Unknown Sex and Gender Information Value [...] Diagnoses Not on filedocumented in this encounter Additional Health Concerns Infection Onset Date Last Indicated Resolved Time CoV-Risk 02/24/2021 02/24/2021 03/06/2021 1:23 AM EDT CoV-Risk 03/17/2021 03/17/2021 03/19/2021 11:4 5 AM EDT CoV-Exposed Comment:Recent close contact documented in the COVID-19 PCR/PRO order 04/12/2021 04/16/2021 04/27/2021 1:23 AM E DT documented as of this encounter Care Teams Audit Reviewer Relationship Specialty Start Date End Date Karlie Gupta MD [address] [place] [address], 2nd [place] [address] [email or web address] PCP - General Internal Medicine 02/27/17 09/12/17 Smiley Han MD [address] [address] [email or web address] PCP - General Internal Medicine 09/13/17 09/19/17 Karlie Gupta MD [address] [place] [address], 2nd [place] [address] [email or web address] PCP - General Internal Medicine 09/20/17 08/27/18 Amy Cardoso DO [address] [place] [address] [email or web address] PCP - General Family Medicine 08/28/18 12/24/20 Ana Melgar MD [address] [place] [address] [email or web address] PCP - General Family Medicine 12/25/20 02/23/21 Areli Cramer MD [address] [place] [address] [email or web address] PCP - General Family Medicine 02/26/21 03/01/21 Areli Cramer MD [address] [place] [address] [email or web address] PCP - General Family Medicine 02/24/21 02/25/21 Ana Melgar MD [address] [place] [address] PCP - General Family Medicine 03/02/21 08/02/23 Paddy Simms PA [address] [place] [address] PCP - General 08/03/23 Denia Hassan CNM 22 [facility], [address] [address] Historical LMR Provider 06/07/17 08/28/21 Sury Carter NP [address] [place] [address] Historical LMR Provider 06/07/17 2 Divya Lopez CNM [address] [place] [address] Historical LMR Provider 06/07/17 2 Home Peacock MD [address] [address] Historical LMR Provider 06/07/17 Madina Keane NP [address] [place] [address] Historical LMR Provider 06/07/17 08/28/21 Elvia Fishman MD [address] [place] [address] Historical LMR Provider 06/07/17 Karlie Gupta MD [address] [place] [address], 2nd [place] [address] Historical LMR Provider 06/07/17 Emerita Fernandez MD 15 [facility], 2nd [place] [address] [email or web address] Historical LMR Provider 06/07/17 Wei Velásquez MD 22 [facility], [address] [place] [address] [email or web address] Historical LMR Provider 06/07/17 Divya Ahuja, CS [email or web address] Historical LMR Provider 06/07/17 08/28/21 Vijay Field MD [address] [place] [address] Historical LMR Provider 06/07/17 2 Turner Devlin MD [address] [place] [address] [email or web address] Historical LMR Provider 06/07/17 Amy Cardoso DO [address] [place] [address] [email or web address] Insurance Assigned Provider 10/24/20 12/22/20 Amy Cardoso DO [address] [place] [address] [email or web address] Insurance Assigned Provider 10/24/20 03/27/21 documented as of this encounter Additional Source Comments The information contained in this document represents components of the legal health record. It is not the complete legal health record.[facility]
--- OUTSIDE RECORDS SUMMARY | 2025-06-25 15:26 | XMS_ITS | Encounter Summary ---
Author Organization [facility] Address [address] [address] Phone Care Team Providers Care Teletypist Name Role Phone Denia Hassan CNM Unavailable Sury Carter MANAGER MOBILE Unavailable Divya Lopez CNM Unavailable Home Peacock MD Unavailable Madina Keane MANAGER MOBILE Unavailable [phone] Elvia Fishman MD Unavailable [phone] Karlie Gupta MD Unavailable Emerita Fernandez MD Unavailable Wei Velásquez MD Unavailable Divya Ahuja RDCS Unavailable [email or web address] Vijay Field MD Unavailable [phone] Turner Devlin MD Unavailable [phone] Karlie Gupta MD Primary Care Provider Amy Cardoso DO Primary Care Provider [phone] Amy Cardoso DO Unavailable Ana Melgar MD Primary Care Provider Areli Cramer MD Primary Care Provider + Areli Cramer MD Primary Care Provider + Ana Melgar MD Primary Care Provider [phone] Amy Cardoso DO Unavailable [phone] Paddy Simms Primary Care Provider [phone] Encounter Details Date Type Department Care Team (Latest Contact Info) Description 04/24/2018 Transcribe Orders [facility] Main [address] [place] [address] Len Trinidad MD [address] [place] [address] [email or web address] Diagnosis unknown (Primary Dx) Social History Tobacco [...] on file documented as of this encounter Results * Stool culture (06/15/2018 7:00 AM EDT) Specimen Source/ Description STOOL STOOL STOOL [facility] Special Requests None [facility] Culture/Test NO SALMONELLA, SHIGELLA OR CAMPYLOBACTER ISOLATED No gram negative deborah isolated [facility] Report Status 06/18/2018 FINAL [facility] Stool (Stool) 06/15/2018 7:0 0 AM EDT 06/15/2018 8:17 AM EDT us Len Trinidad MD LAB MICROBIOLOGY CULTURE ORDER CIERRA Final Result [facility] [address] [place] [address] documented in this encounter Visit Diagnoses Diagnosis Diagnosis unknown- Primary documented in this encounter Additional Health Concerns Infection Onset Date Last Indicated Resolved Time CoV-Risk 02/24/2021 02/24/2021 03/06/2021 1:23 AM EDT CoV-Risk 03/17/2021 03/17/2021 03/19/2021 11:4 5 AM EDT CoV-Exposed Comment:Recent close contact documented in the COVID-19 PCR/PRO order 04/12/2021 04/16/2021 04/27/2021 1:23 AM E DT documented as of this encounter Care Teams Teletypist Relationship Specialty Start Date End Date Karlie Gupta MD [address] [place] [address], 2nd [place] [address] [email or web address] PCP - General Internal Medicine 09/20/17 08/27/18 Amy Cardoso DO [address] [place] [address] [email or web address] PCP - General Family Medicine 08/28/18 12/24/20 Ana Melgar MD [address] [address] [email or web address] PCP - General Family Medicine 12/25/20 02/23/21 Areli Cramer MD [address] [place] [address] PCP - General Family Medicine 02/26/21 03/01/21 Areli Cramer MD [address] [place] [address] PCP - General Family Medicine 02/24/21 02/25/21 Ana Melgar MD 15 [facility] Yariel. [address] [place] [address] [email or web address] PCP - General Family Medicine 03/02/21 08/02/23 Paddy Simms PA [address] [place] [address] PCP - General 08/03/23 Denia Hassan CNM [address] [place] [address] [email or web address] Historical LMR Provider 06/07/17 08/28/21 Sury Carter NP [address] [place] [address] Historical LMR Provider 06/07/17 2 Divya Lopez CNM 30 [place] [address] Historical LMR Provider 06/07/17 2 Home Peacock MD [address] [address] [email or web address] Historical LMR Provider 06/07/17 Madina Keane NP [address] [place] [address] Historical LMR Provider 06/07/17 08/28/21 Elvia Fishman MD [address] [place] [address] Historical LMR Provider 06/07/17 Karlie Gupta MD [address] [place] [address] [email or web address] Historical LMR Provider 06/07/17 Emerita Fernandez MD [address] [address] [email or web address] Historical LMR Provider 06/07/17 Wei Velásquez MD 22 [facility], [address] [place] [address] [email or web address] Historical LMR Provider 06/07/17 Divya Ahuja, [facility] [email or web address] Historical LMR Provider 06/07/17 08/28/21 Vijay Field MD [address] [place] [address] Historical LMR Provider 06/07/17 2 Turner Devlin MD [address] [address] [email or web address] Historical LMR Provider 06/07/17 Amy Cardoso DO [address] [place] [address] [email or web address] Insurance Assigned Provider 10/24/20 12/22/20 Amy Cardoso DO [address] [place] [address] [email or web address] Insurance Assigned Provider 10/24/20 03/27/21 documented as of this encounter Additional Source Comments The information contained in this document represents components of the legal health record. It is not the complete legal health record.[facility]
--- OUTSIDE RECORDS SUMMARY | 2025-06-25 15:26 | XMS_ITS | Encounter Summary ---
Author Organization [facility] Address [address] [address] Phone Care Team Providers Care Tuyere Fitter Name Role Phone Denia Hassan CNM Unavailable Sury Carter GOVERNMENT CONTRACTS MANAGER Unavailable Divya Lopez CNM Unavailable Home Peacock MD Unavailable Madina Keane GOVERNMENT CONTRACTS MANAGER Unavailable [phone] Elvia Fishman MD Unavailable [phone] Karlie Gupta MD Unavailable Emerita Fernandez MD Unavailable Wei Velásquez MD Unavailable Divya Ahuja RDCS Unavailable [email or web address] Vijay Field MD Unavailable [phone] Turner Devlin MD Unavailable [phone] Karlie Gupta MD Primary Care Provider Amy Cardoso DO Primary Care Provider [phone] Amy Cardoso DO Unavailable Ana Melgar MD Primary Care Provider Areli Cramer MD Primary Care Provider + Areli Cramer MD Primary Care Provider + Ana Melgar MD Primary Care Provider [phone] Amy Cardoso DO Unavailable [phone] Paddy Simms Primary Care Provider [phone] Encounter Details Date Type Department Care Team (Late st Contact Info) Description 12/26/2017 Procedure Pass [place] Admitting Dept - Virtual Department [address] [place] [address] Social History Tobacco Use Types Packs/Day Years [...] documented as of this encounter Care Teams Tuyere Fitter Relationship Specialty Start Date End Date Karlie Gupta MD [address] [place] [address], 2nd [place] [address] PCP - General Internal Medicine 09/20/17 08/27/18 Amy Cardoso DO 9 [place] [address] [email or web address] PCP - General Family Medicine 08/28/18 12/24/20 Ana Melgar MD [address] [place] [address] [email or web address] PCP - General Family Medicine 12/25/20 02/23/21 Areli Cramer MD [address] [place] [address] [email or web address] PCP - General Family Medicine 02/26/21 03/01/21 Areli Cramer MD [address] [place] [address] [email or web address] PCP - General Family Medicine 02/24/21 02/25/21 Ana Melgar MD [address] [place] [address] [email or web address] PCP - General Family Medicine 03/02/21 08/02/23 Paddy Simms PA [address] [place] [address] PCP - General 08/03/23 Denia Hassan CNM [address] [place] [address] [email or web address] Historical LMR Provider 06/07/17 08/28/21 Sury Carter NP [address] [place] [address] Historical LMR Provider 06/07/17 2 Divya Lopez CNM [address] [place] [address] Historical LMR Provider 06/07/17 2 Home Peacock MD [address] [address] Historical LMR Provider 06/07/17 Madina Keane GOVERNMENT CONTRACTS MANAGER 30 [place] [address] [email or web address] Historical LMR Provider 06/07/17 08/28/21 Elvia Fishman MD [address] [place] [address] Historical LMR Provider 06/07/17 Karlie Gupta MD [address] [place] [address] Historical LMR Provider 06/07/17 Emerita Fernandez MD [address] [place] [address] Historical LMR Provider 06/07/17 Wei Velásquez MD [address] [place] [address] Historical LMR Provider 06/07/17 Divya Ahuja, RDCS Historical LMR Provider 06/07/17 08/28/21 Vijay Field MD [address] [place] [address] Historical LMR Provider 06/07/17 2 Turner Devlin MD [address] [place] [address] [email or web address] Historical LMR Provider 06/07/17 Amy Cardoso DO [address] [place] [address] [email or web address] Insurance Assigned Provider 10/24/20 12/22/20 Amy Cardoso DO [address] [place] [address] [email or web address] Insurance Assigned Provider 10/24/20 03/27/21 documented as of this encounter Additional Source Comments The information contained in this document represents components of the legal health record. It is not the complete legal health record.[facility]
--- OUTSIDE RECORDS SUMMARY | 2025-06-25 15:26 | XMS_ITS | Encounter Summary ---
Author Organization [facility] Address [address] [address] Phone Care Team Providers Care Gis Software Developer Name Role Phone Denia Hassan CNM Unavailable Sury Carter ADULT CARE MANAGER Unavailable Divya Lopez CNM Unavailable Home Peacock MD Unavailable Madina Keane ADULT CARE MANAGER Unavailable [phone] Elvia Fishman MD Unavailable [phone] Karlie Gupta MD Unavailable Emerita Fernandez MD Unavailable Wei Velásquez MD Unavailable Divya Ahuja RDCS Unavailable [email or web address] iVjay Field MD Unavailable [phone] Turner Devlin MD Unavailable [phone] Amy Cardoso DO Primary Care Provider [phone] Amy Cardoso DO Unavailable Ana Melgar MD Primary Care Provider [phone] Areli Cramer MD Primary Care Provider + Areli Cramer MD Primary Care Provider + Ana Melgar MD Primary Care Provider [phone] Amy Cardoso DO Unavailable Paddy Simms Primary Care Provider [phone] Encounter Details Date Type Department Care Team (Late st Contact Info) Description 01/24/2019 Procedure Pass MG VALERIY 4 ENDO DEPT [address] [facility], 4th [place] [address] Social History Tobacco Use Types Packs/Day Years Used Date Smoking Tobacco: Former Cigarettes Q uit: 06/21/2017 Smokeless Tobacco: Former Alcohol Use Standard Drinks/Week Comments Yes 0 (1 standard drink = 0.6 oz pur e alcohol) socially Comments No Sex and Gender Information Value [...] 04/12/2021 04/16/2021 04/27/2021 1:23 AM E DT Assessment Noted Time PHQ-2 Depression Total Score: 6 11/30/19 19 8:47 AM EDT documented as of this encounter Care Teams Gis Software Developer Relationship Specialty Start Date End Date Amy Cardoso DO [address] [place] [address] [email or web address] PCP - General Family Medicine 08/28/18 12/24/20 Ana Melgar MD [address] [address] [email or web address] PCP - General Family Medicine 12/25/20 02/23/21 Areli Cramer MD [address] [place] [address] [email or web address] PCP - General Family Medicine 02/26/21 03/01/21 Areli Cramer MD [address] [place] [address] [email or web address] PCP - General Family Medicine 02/24/21 02/25/21 Ana Melgar MD [address] [place] [address] [email or web address] PCP - General Family Medicine 03/02/21 08/02/23 Paddy Simms PA [address] [place] [address] PCP - General 08/03/23 Denia Hassan CNM [address] [place] [address] [address] [place] [address] [email or web address] Historical LMR Provider 06/07/17 08/28/21 Sury Carter NP [address] [place] [address] Historical LMR Provider 06/07/17 2 Divya Lopez CNM [address] [place] [address] Historical LMR Provider 06/07/17 2 Home Peacock MD [address] [address] Historical LMR Provider 06/07/17 Madina Keane, ADULT CARE MANAGER [address] [place] [address] Historical LMR Provider 06/07/17 08/28/21 Elvia Fishman MD [address] [place] [address] Historical LMR Provider 06/07/17 Karlie Gupta MD [address] [place] [address] [email or web address] Historical LMR Provider 06/07/17 Emerita Fernandez MD [address] [address] Historical LMR Provider 06/07/17 Wei Velásquez MD [address] [address] Historical LMR Provider 06/07/17 Divya Ahuja RDCS Historical LMR Provider 06/07/17 08/28/21 Vijay Field MD [address] [place] [address] Historical LMR Provider 06/07/17 1/8/2 2 Turner Devlin MD [address] [address] [email or web address] Historical LMR Provider 06/07/17 Amy Cardoso DO [address] [place] [address] [email or web address] Insurance Assigned Provider 10/24/20 12/22/20 Amy Cardoso DO [address] [place] [address] [email or web address] Insurance Assigned Provider 10/24/20 03/27/21 documented as of this encounter Additional Source Comments The information contained in this document represents components of the legal health record. It is not the complete legal health record.[facility]
--- OUTSIDE RECORDS SUMMARY | 2025-06-25 15:27 | XMS_ITS | Encounter Summary ---
Author Organization [facility] Address [address] [address] Phone Care Team Providers Care Lead Case Manager Name Role Phone Denia Hassan CNM Unavailable Sury Carter HEART DOCTOR Unavailable Divya Lopez CNM Unavailable Home Peacock MD Unavailable Madina Keane HEART DOCTOR Unavailable [phone] Elvia Fishman MD Unavailable [phone] Karlie Gupta MD Unavailable Emerita Fernandez MD Unavailable Wei Velásquez MD Unavailable Divya Ahuja RDCS Unavailable [email or web address] Vijay Field MD Unavailable [phone] Turner Devlin MD Unavailable [phone] Karlie Gupta MD Primary Care Provider Amy Cardoso DO Primary Care Provider [phone] Amy Cardoso DO Unavailable Ana Melgar MD Primary Care Provider Areli Cramer MD Primary Care Provider + Areli Cramer MD Primary Care Provider + Ana Melgar MD Primary Care Provider [phone] Amy Baljeet DO Unavailable [phone] Paddy Simms Primary Care Provider [phone] Encounter Details Date Type Department Care Team (Late st Contact Info) Description 03/28/2018 Transcribe Orders [facility] Phleb Main [address] [place] [address] Minnie Best, MAGALY [address] [place] [address] Social History Tobacco Use Types Packs/Day Years [...] documented as of this encounter Care Teams Lead Case Manager Relationship Specialty Start Date End Date Karlie Gupta MD [address] [place] [address], 2nd [place] [address] [email or web address] PCP - General Internal Medicine 09/20/17 08/27/18 Amy Cardoso DO [address] [place] [address] [email or web address] PCP - General Family Medicine 08/28/18 12/24/20 Ana Melgar MD [address] [place] [address] [email or web address] PCP - General Family Medicine 12/25/20 02/23/21 Areli Cramer MD [address] [place] [address] [email or web address] PCP - General Family Medicine 02/26/21 03/01/21 Areli Cramer MD [address] [place] [address] [email or web address] PCP - General Family Medicine 02/24/21 02/25/21 Ana Melgar MD [address] [place] [address] [email or web address] PCP - General Family Medicine 03/02/21 08/02/23 Paddy Simms PA [address] [place] [address] PCP - General 08/03/23 Denia Hassan CNM 22 [facility], [address] [place] [address] Historical LMR Provider 06/07/17 08/28/21 Suyr Carter NP [address] [place] [address] Historical LMR Provider 06/07/17 2 Divya Lopez CNM 30 [place] [address] Historical LMR Provider 06/07/17 2 Home Peacock MD [address] [address] Historical LMR Provider 06/07/17 Madina Keane NP 30 [place] [address] Historical LMR Provider 06/07/17 08/28/21 Elvia Fishman MD [address] [place] [address] Historical LMR Provider 06/07/17 Karlie Gupta MD [address] [place] [address], [address] [place] [address] Historical LMR Provider 06/07/17 Emerita Fernandez MD [address] [address] Historical LMR Provider 06/07/17 Wei Velásquez MD [address] [address] [email or web address] Historical LMR Provider 06/07/17 Divya Ahuja, [place] [email or web address] Historical LMR Provider 06/07/17 08/28/21 Vijay Field MD [address] [place] [address] Historical LMR Provider 06/07/17 2 Turner Devlin MD [address] [place] [address] [email or web address] Historical LMR Provider 06/07/17 Amy Cardoso DO [address] [place] [address] [email or web address] Insurance Assigned Provider 10/24/20 12/22/20 Amy Cardoso DO [address] [place] [address] [email or web address] Insurance Assigned Provider 10/24/20 03/27/21 documented as of this encounter Additional Source Comments The information contained in this document represents components of the legal health record. It is not the complete legal health record.[facility]
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
--- OUTSIDE RECORDS SUMMARY | 2025-06-25 15:27 | XMS_ITS | Encounter Summary ---
Author Organization [facility] Address [address] [address] Phone Care Team Providers Care Scouts Name Role Phone Denia Hassan CNM Unavailable Sury Carter SALES SUPPORT REPRESENTATIVE Unavailable Divya Lopez CNM Unavailable Home Peacock MD Unavailable Madina Keane SALES SUPPORT REPRESENTATIVE Unavailable Elvia Fishman MD Unavailable [phone] Karlie Gupta MD Unavailable Emerita Fernandez MD Unavailable Wei Velásquez MD Unavailable Divya Ahuja RDCS Unavailable [email or web address] Vijay Field MD Unavailable [phone] Turner Devlin MD Unavailable [phone] Karlie Gupta MD Primary Care Provider Amy Cardoso DO Primary Care Provider [phone] Amy Cardoso DO Unavailable Ana Melgar MD Primary Care Provider [phone] Areli Cramer MD Primary Care Provider + Areli Cramer MD Primary Care Provider + Ana Melgar MD Primary Care Provider [phone] Walker Amy Baljeet DO Unavailable [phone] Paddy Simms Primary Care Provider [phone] Encounter Details Date Type Department Care Team (Late st Contact Info) Description 03/28/2018 Transcribe Orders [facility] Phleb Main [address] [place] [address] Minnie Best, MAGALY [address] [place] [address] Social History Tobacco Use Types Packs/Day Years [...] documented as of this encounter Care Teams Scouts Relationship Specialty Start Date End Date Karlie Gupta MD [address] [place] [address], 2nd [place] [address] [email or web address] PCP - General Internal Medicine 09/20/17 08/27/18 Amy Cardoso DO [address] [place] [address] [email or web address] PCP - General Family Medicine 08/28/18 12/24/20 Ana Melgar MD [address] [place] [address] [email or web address] PCP - General Family Medicine 12/25/20 02/23/21 Areli Cramer MD [address] [place] [address] [email or web address] PCP - General Family Medicine 02/26/21 03/01/21 Areli Cramer MD [address] [place] [address] [email or web address] PCP - General Family Medicine 02/24/21 02/25/21 Ana Melgar MD [address] [place] [address] [email or web address] PCP - General Family Medicine 03/02/21 08/02/23 Paddy Simms PA [address] [place] [address] PCP - General 08/03/23 Denia Hassan CNM 22 [facility], [address] [place] [address] Historical LMR Provider 06/07/17 08/28/21 Sury Carter NP [address] [place] [address] Historical LMR Provider 06/07/17 2 Divya Lopez CNM 30 [place] [address] Historical LMR Provider 06/07/17 2 Home Peacock MD [address] [address] Historical LMR Provider 06/07/17 Madina Keane NP [address] [place] [address] Historical LMR Provider 06/07/17 08/28/21 Elvia Fishman MD [address] [place] [address] Historical LMR Provider 06/07/17 Karlie Gupta MD [address] [place] [address], [address] [place] [address] Historical LMR Provider 06/07/17 Emerita Fernandez MD [address] [address] Historical LMR Provider 06/07/17 Wei Velásquez MD [address] [address] [email or web address] Historical LMR Provider 06/07/17 Divya Ahuja, [place] [email or web address] Historical LMR Provider 06/07/17 08/28/21 Vijay Field MD [address] [place] [address] Historical LMR Provider 06/07/17 2 Turner Devlin MD [address] [place] [address] [email or web address] Historical LMR Provider 06/07/17 Amy Cardoso DO [address] [place] [address] [email or web address] Insurance Assigned Provider 10/24/20 12/22/20 Amy Cardoso DO [address] [place] [address] [email or web address] Insurance Assigned Provider 10/24/20 03/27/21 documented as of this encounter Additional Source Comments The information contained in this document represents components of the legal health record. It is not the complete legal health record.[facility]
--- OUTSIDE RECORDS SUMMARY | 2025-06-25 15:27 | XMS_ITS | Encounter Summary ---
Author Organization [employer] Address [address] [facility] 7t [place] [address] Care Team Providers Care Apparel Sales Associate Name Role Phone Paddy Simms Primary Care Provider [phone] Encounter Details Date Type Department Care Team ([facility] st Contact Info) Description 08/09/2024 Telephone [facility] [address] [place] [address] Paddy Simms PA [address] [place], [place] [id number] Social History Tobacco Use Types Packs/Day Years [...] the past 12 months, has t he yetu, gas, oil or water [employer] threatened to shut off services in your [...] Facility: NPI# of Provider being referred to: [id number] Dr Jose Juan Garcia [address] [place] [address] Dr Jessica MARRERO [address] Phone #: [phone] Fax #: documented in this encounter Plan of Treatment Not on file documented as of this encounter Visit Diagnoses Not on filedocumented in this encounter Care Teams Apparel Sales Associate Relationship Specialty Start Date End Date Paddy Simms PA [address] [place] [address] PCP - General Family Medicine 03/18/23 documented as of this encounter
--- OUTSIDE RECORDS SUMMARY | 2025-06-25 15:27 | XMS_ITS | Encounter Summary ---
Author Organization [facility] Address [address] [address] Phone Care Team Providers Care Set Up Mechanic Heading Machines Name Role Phone Denia Hassan CNM Unavailable Sury Carter FINISHING POWDER PRESS OPERATOR Unavailable Divya Lopez CNM Unavailable Home ePacock MD Unavailable Madina Keane FINISHING POWDER PRESS OPERATOR Unavailable [phone] Elvia Fishman MD Unavailable [phone] Karlie Gupta MD Unavailable mEerita Fernandez MD Unavailable Wei Velásquez MD Unavailable Divya Ahuja RDCS Unavailable [email or web address] Vijay Field MD Unavailable [phone] Turner Devlin MD Unavailable [phone] Karlie Gupta MD Primary Care Provider Amy Cardoso DO Primary Care Provider [phone] Amy Cardoso DO Unavailable Ana Melgar MD Primary Care Provider Areli Cramer MD Primary Care Provider + Areli Cramer MD Primary Care Provider + Ana Melgar MD Primary Care Provider + [phone] CardosoAmy DO Unavailable [phone] Paddy Simms Primary Care Provider [phone] Encounter Details Date Type Department Care Team (Latest Contact Info) Description 04/13/2018 Transcribe Orders [facility] Phleb [address] [place] [address] Minnie Best NP [address] [place] [address] Bulimia (Primary Dx) Social History Tobacco Use Types [...] documented as of this encounter Results * Phosphorus (04/13/2018 4:23 PM EDT) PHOSPHORUS 3.8 2.7 - 4.5 mg/dL [facility] Blood 04/13/2018 4:23 PM EDT 04/13/2018 4:24 PM EDT us Minnie Best FINISHING POWDER PRESS OPERATOR LAB BLOOD BKR ORDERAB LES Final Result [facility] [address] [place] [address] * Magnesium (04/13/2018 4:23 PM EDT) MAGNESIUM 2.1 1.6 - 2.6 mg/dL [facility] Blood 04/13/2018 4:23 PM EDT 04/13/2018 4:24 PM EDT Minnie Best FINISHING POWDER PRESS OPERATOR LAB BLOOD BKR ORDERAB LES Final Result [address] [address] * (ABNORMAL) Lipase (04/13/2018 4:23 PM EDT) Pathologist [facility] LIPASE 76(H) 16 - 63 U/L [facility] Blood 04/13/2018 4:23 PM EDT 04/13/2018 4:24 PM EDT Minnie Best FINISHING POWDER PRESS OPERATOR LAB BLOOD BKR ORDERAB LES Final Result Performing Organization Address City/[facility]/ZIP Co de Phone Number [address] [address] * Comprehensive metabolic panel (04/13/2018 4:23 PM EDT) Pathologist [facility] SODIUM 140 133 - 146 mmol/L [facility] POTASSIUM 4.1 3.3 - 5.1 mmol/L [facility] CHLORIDE 102 96 - 108 mmol/L [facility] CO2 28 21 - 35 mmol/L [facility] BUN 14 6 - 19 mg/dL [facility] CREATININE 0.90 0.5 - 1.5 mg/dL [facility] GLUCOSE 87 70 - 99 mg/dL [facility] ALBUMIN 4.1 3.9 - 4.8 g/dL [facility] TOTAL PROTEIN 7.4 6.5 - 8.0 g/dL [facility] CALCIUM 9.7 8.4 - 10.3 mg/dL [facility] ALKALINE PHOSPHATASE 69 39 - 117 U/L [facility] TOTAL BILIRUBIN <0.2 0.0 - 1.2 mg/dL [facility] AST 25 0 - 37 U/L [facility] ALT 34 0 - 40 U/L [facility] GLOBULIN 3.3 1 - 4.8 g/dL [facility] EGFR 90 >59 mL/min/1.7 3m2 [facility] Comment:If patient is black, multiply result by 1.159. Estimated glomerular filtration rate calculated using the CKD-EPI equation. ANION GAP 14 10 - 20 mmol/L [facility] Blood 04/13/2018 4:23 PM EDT 04/13/2018 4:24 PM EDT us Minnie Best NP LAB BLOOD BKR ORDERAB LES Final Result Performing Organization Address [facility]/ZIP Co de Phone Number [address] [address] * Bilirubin, direct (04/13/2018 4:23 PM EDT) DIRECT BILIRUBIN <0.2 0 - 0.3 mg/dL [facility] Blood 04/13/2018 4:23 PM EDT 04/13/2018 4:24 PM EDT us Minnei Best FINISHING POWDER PRESS OPERATOR LAB BLOOD BKR ORDERAB LES Final Result Performing Organization Address [facility] Co de Phone Number [address] [address] * (ABNORMAL) Amylase (04/13/2018 4:23 PM EDT) AMYLASE 182(H) 28 - 100 U/L [facility] Blood 04/13/2018 4:23 PM EDT 04/13/2018 4:24 PM EDT us Minnie Best FINISHING POWDER PRESS OPERATOR LAB BLOOD BKR ORDERAB LES Final Result Performing Organization Address [facility] Co de Phone Number [address] [address] documented in this encounter Visit Diagnoses Diagnosis Bulimia- Primary Bulimia nervosa documented in this encounter Additional Health Concerns Infection Onset Date Last Indicated Resolved Time CoV-Risk 02/24/2021 02/24/2021 03/06/2021 1:23 AM EDT CoV-Risk 03/17/2021 03/17/2021 03/19/2021 11:4 5 AM EDT CoV-Exposed Comment:Recent close contact documented in the COVID-19 PCR/PRO order 04/12/2021 04/16/2021 04/27/2021 1:23 AM E DT documented as of this encounter Care Teams Set Up Mechanic Heading Machines Relationship Specialty Start Date End Date Karlie Gupta MD [address] [place] [address], 2nd [place] [address] [email or web address] PCP - General Internal Medicine 09/20/17 08/27/18 Amy Cardoso DO [address] [place] [address] [email or web address] PCP - General Family Medicine 08/28/18 12/24/20 Ana Melgar MD [address] [place] [address] [email or web address] PCP - General Family Medicine 12/25/20 02/23/21 Areli Cramer MD [address] [place] [address] [email or web address] PCP - General Family Medicine 02/26/21 03/01/21 Areli Cramer MD [address] [place] [address] [email or web address] PCP - General Family Medicine 02/24/21 02/25/21 Ana Melgar MD [address] [place], [place] [address], [place] [address] PCP - General Family Medicine 03/02/21 08/02/23 Paddy Simms PA [address] [place] [address] PCP - General 08/03/23 Denia Hassan CNM 22 [facility] 102 [place] [address] Historical LMR Provider 06/07/17 08/28/21 Sury Carter NP [address] [place] [address] Historical LMR Provider 06/07/17 2 Divya Lopez CNM 30 [place] [address] Historical LMR Provider 06/07/17 2 Home Peacock MD [address] [address] Historical LMR Provider 06/07/17 Madina Keane NP 30 [place] [address] Historical LMR Provider 06/07/17 08/28/21 Elvia Fishman MD [address] [place] [address] Historical LMR Provider 06/07/17 Karlie Gupta MD [address] [place] [address], [address] [place] [address] [email or web address] Historical LMR Provider 06/07/17 Emerita Fernandez MD 15 [facility], [address] [place] [address] [email or web address] Historical LMR Provider 06/07/17 Wei Velásquez MD 22 [facility], [address] [place] [address] [email or web address] Historical LMR Provider 06/07/17 Divya Ahuja, CS [email or web address] Historical LMR Provider 06/07/17 08/28/21 Vijay Field MD [address] [place] [address] Historical LMR Provider 06/07/17 2 Turner Devlin MD [address] [place] [address] [email or web address] Historical LMR Provider 06/07/17 Amy Cardoso DO [address] [place] [address] [email or web address] Insurance Assigned Provider 10/24/20 12/22/20 Amy Cardoso DO [address] [place] [address] [email or web address] Insurance Assigned Provider 10/24/20 03/27/21 documented as of this encounter Additional Source Comments The information contained in this document represents components of the legal health record. It is not the complete legal health record.[facility]
--- OUTSIDE RECORDS SUMMARY | 2025-06-25 15:27 | XMS_ITS | Encounter Summary ---
Author Organization [employer] Address [address] [place] [address] 7 [place] [address] Care Team Providers Care City Maintenance Manager Name Role Phone Paddy Simms Primary Care Provider [phone] Encounter Details Date Type Department Care Team (Late st Contact Info) Description 05/16/2023 Abstract [facility] [address] [place] [phone] Paddy Simms PA [address] [place] [address] Social History Tobacco Use Types Packs/Day Years [...] on filedocumented in this encounter Care Teams City Maintenance Manager Relationship Specialty Start Date End Date Paddy Simms PA [address] [place] [address] PCP - General Family Medicine 03/18/23 documented as of this encounter
--- OUTSIDE RECORDS SUMMARY | 2025-06-25 15:27 | XMS_ITS | Encounter Summary ---
Author Organization [facility] Address [address] [address] Phone Care Team Providers Care Cone Picker Name Role Phone Denia Hassan CNM Unavailable Sury Carter KILN REMOVER Unavailable Divya Lopez CNM Unavailable Home Peacock MD Unavailable Madina Keane KILN REMOVER Unavailable [phone] Elvia Fishman MD Unavailable [phone] Karlie Gupta MD Unavailable Emerita Fernandez MD Unavailable Wei Velásquez MD Unavailable Divya Ahuja RDCS Unavailable [email or web address] Vijay Field MD Unavailable [phone] Turner Devlin MD Unavailable [phone] Karlie Gupta MD Primary Care Provider Amy Cardoso DO Primary Care Provider [phone] Amy Cardoso DO Unavailable Ana Melgar MD Primary Care Provider Areli Cramer MD Primary Care Provider + Areli Cramer MD Primary Care Provider + Ana Melgar MD Primary Care Provider [phone] Amy Cardoso DO Unavailable [phone] Paddy Simms Primary Care Provider [phone] Reason for Referral * Consultation (Routine) - Canceled Specialty Diagnoses / Procedures Referred By Contac t Referred To Contact Diagnoses POTS (postural orthostatic tachycardia syndrome) Karlie Gupta MD Phone: tel: fax: mailto:[email or web address] [address] [address] Phone: tel: Referral ID Status Reason Start Date Expiration Date V isits Requested Visits Authorized [id number] Canceled 12/25/2017 12/25/2018 1 1 Encounter Details Date Type Department Care Team (Late st Contact Info) Description 12/25/2017 Transcribe Orders [facility] Department [address] [place] [address] Karlie Gupta MD 170 [facility], 2nd [place] [address] [email or web address] POTS (postural orthostatic tachycardia syndrome) (Primary Dx) Social History Tobacco Use Types [...] as of this encounter Plan of Treatment Scheduled Referrals Name Type Priority Associated Diagnoses Orde r Schedule Ambulatory referral to [facility] Outpatient Referral Routine POTS (postural orthostatic tachycardia syndrome) Ordered: 12/25/2017 documented as of this encounter Visit Diagnoses Diagnosis POTS (postural orthostatic tachycardia syndrome)- Primary Unspecified tachycardia documented in this encounter Additional Health Concerns Infection Onset Date Last Indicated Resolved Time CoV-Risk 02/24/2021 02/24/2021 03/06/2021 1:23 AM EDT CoV-Risk 03/17/2021 03/17/2021 03/19/2021 11:4 5 AM EDT CoV-Exposed Comment:Recent close contact documented in the COVID-19 PCR/PRO order 04/12/2021 04/16/2021 04/27/2021 1:23 AM E DT documented as of this encounter Care Teams Cone Picker Relationship Specialty Start Date End Date Karlie Gupta MD [address] [place] [address], 2[address] [place] [address] [email or web address] PCP - General Internal Medicine 09/20/17 08/27/18 Amy Cardoso DO [address] [place] [address] [email or web address] PCP - General Family Medicine 08/28/18 12/24/20 Ana Melgar MD [address] [place] [address] PCP - General Family Medicine 12/25/20 02/23/21 Areli Cramer MD [address] [place] [address] PCP - General Family Medicine 02/26/21 03/01/21 Areli Cramer MD [address] [place] [address] PCP - General Family Medicine 02/24/21 02/25/21 Ana Melgar MD 15 [facility] Yariel. 201 [place] [address] PCP - General Family Medicine 03/02/21 08/02/23 Paddy Simms PA [address] [place] [address] PCP - General 08/03/23 Denia Hassan CNM [address] [address] Historical LMR Provider 06/07/17 08/28/21 Sury Carter NP [address] [place] [address] Historical LMR Provider 06/07/17 2 Divya Lopez CNM [address] [place] [address] Historical LMR Provider 06/07/17 2 Home Peacock MD 22 [facility], [address] [place] [address] Historical LMR Provider 06/07/17 Madina Keane NP 30 [place] [address] Historical LMR Provider 06/07/17 08/28/21 Elvia Fishman MD [address] [place] [address] Historical LMR Provider 06/07/17 Karlie Gupta MD [address] [place] [address] Historical LMR Provider 06/07/17 Emerita Fernandez MD [address] [address] Historical LMR Provider 06/07/17 Wei Velásquez MD 22 [facility], [address] [place] [address] Historical LMR Provider 06/07/17 Divya Ahuja, CS [email or web address] Historical LMR Provider 06/07/17 08/28/21 Vijay Field MD [address] [place] [address] Historical LMR Provider 06/07/17 2 Turner Devlin MD [address] [place] [address] [email or web address] Historical LMR Provider 06/07/17 Amy Cardoso DO [address] [place] [address] [email or web address] Insurance Assigned Provider 10/24/20 12/22/20 Amy Cardoso DO [address] [place] [address] [email or web address] Insurance Assigned Provider 10/24/20 03/27/21 documented as of this encounter Additional Source Comments The information contained in this document represents components of the legal health record. It is not the complete legal health record.[facility]
--- OUTSIDE RECORDS SUMMARY | 2025-06-25 15:27 | XMS_ITS | Encounter Summary ---
Author Organization [employer] Address [address] [place] [address] 7 [place] [address] Care Team Providers Care Scientific Informatics Leader Name Role Phone Paddy Simms Primary Care Provider [phone] Encounter Details Date Type Department Care Team (Late st Contact Info) Description 04/18/2023 Abstract [facility] 102 [place] [phone] Paddy Simms PA 102 [place] [address] Social History Tobacco Use Types Packs/Day Years [...] on filedocumented in this encounter Care Teams Scientific Informatics Leader Relationship Specialty Start Date End Date Padyd Simms PA 102 [place] [address] PCP - General Family Medicine 03/18/23 documented as of this encounter
--- OUTSIDE RECORDS SUMMARY | 2025-06-25 15:27 | XMS_ITS | Encounter Summary ---
Author Organization [facility] Address [address] [address] Phone Care Team Providers Care Roll Examiner Name Role Phone Denia Hassan CNM Unavailable Sury Carter SERVOMECHANISM DESIGNER Unavailable Divya Lopez CNM Unavailable Home Peacock MD Unavailable Madina Keane SERVOMECHANISM DESIGNER Unavailable [phone] Elvia Fishman MD Unavailable [phone] Karlie Gupta MD Unavailable Emerita Fernandez MD Unavailable [phone] Wei Velásquez MD Unavailable Divya Ahuja RDCS Unavailable [email or web address] Vijay Field MD Unavailable [phone] Turner Devlin MD Unavailable [phone] Karlie Gupta MD Primary Care Provider Amy Cardoso DO Primary Care Provider [phone] Amy Cardoso DO Unavailable Ana Melgar MD Primary Care Provider Areil Cramer MD Primary Care Provider + Areli Cramer MD Primary Care Provider + Ana Melgar MD Primary Care Provider [phone] Walker Amy Delong DO Unavailable [phone] Paddy Simms Primary Care Provider [phone] Encounter Details Date Type Department Care Team (Late st Contact Info) Description 12/20/2017 Transcribe Orders Virtual Department 30 [place] [address] Karlie Gupta MD [address] [place] [address], 2[address] [place] [address] Social History Tobacco Use Types Packs/Day Years [...] documented as of this encounter Care Teams Roll Examiner Relationship Specialty Start Date End Date Karlie Gupta MD [address] [place] [address], [address] [place] [address] [email or web address] PCP - General Internal Medicine 09/20/17 08/27/18 Amy Cardoso DO [address] [place] [address] [email or web address] PCP - General Family Medicine 08/28/18 12/24/20 Ana Melgar MD [address] [place] [address] [email or web address] PCP - General Family Medicine 12/25/20 02/23/21 Areli Cramer MD [address] [place] [address] [email or web address] PCP - General Family Medicine 02/26/21 03/01/21 Areli Cramer MD [address] [place] [address] [email or web address] PCP - General Family Medicine 02/24/21 02/25/21 Ana Melgar MD [address] [place] [address] [email or web address] PCP - General Family Medicine 03/02/21 08/02/23 Paddy Simms PA [address] [place] [address] PCP - General 08/03/23 Denia Hassan CNM 22 [facility], [address] [place] [address] Historical LMR Provider 06/07/17 08/28/21 Sury Carter NP [address] [place] [address] Historical LMR Provider 06/07/17 2 Divya Lopez CNM 30 [place] [address] Historical LMR Provider 06/07/17 2 Hmoe Peacock MD [address] [place] [address] Historical LMR Provider 06/07/17 Madina Keane NP [address] [place] [address] [email or web address] Historical LMR Provider 06/07/17 08/28/21 Elvia Fishman MD [address] [place] [address] Historical LMR Provider 06/07/17 Karlie Gupta MD [address] [place] [address] Historical LMR Provider 06/07/17 Emerita Fernandez MD [address] [address] Historical LMR Provider 06/07/17 Wei Velásquez MD [address] [address] [email or web address] Historical LMR Provider 06/07/17 Divya Ahuja, [place] [email or web address] Historical LMR Provider 06/07/17 08/28/21 Vijay Field MD [address] [place] [address] Historical LMR Provider 06/07/17 2 Turner Devlin MD [address] [place] [address] [email or web address] Historical LMR Provider 06/07/17 Amy Cardoso DO [address] [place] [address] [email or web address] Insurance Assigned Provider 10/24/20 12/22/20 Amy Cardoso DO [address] [place] [address] [email or web address] Insurance Assigned Provider 10/24/20 03/27/21 documented as of this encounter Additional Source Comments The information contained in this document represents components of the legal health record. It is not the complete legal health record.[facility]
--- OUTSIDE RECORDS SUMMARY | 2025-06-25 15:27 | XMS_ITS | Encounter Summary ---
Author Organization [facility] Address [address] [address] Phone Care Team Providers Care Electro Mechanical Technologist Name Role Phone Denia Hassan CNM Unavailable Sury Carter BOX SEALING MACHINE OPERATOR Unavailable Divya Lopez CNM Unavailable Home Peacock MD Unavailable Madina Keane BOX SEALING MACHINE OPERATOR Unavailable [phone] Elvia Fishman MD Unavailable [phone] Karlie Gupta MD Unavailable Emerita Fernandez MD Unavailable Wei Velásquez MD Unavailable Divya Ahuja RDCS Unavailable [email or web address] Vijay Field MD Unavailable [phone] Turner Devlin MD Unavailable [phone] Ana Melgar MD Primary Care Provider Paddy Simms Primary Care Provider [phone] Encounter Details Date Type Department Care Team (Late st Contact Info) Description 04/01/2021 Procedure Pass [facility] 30 [place] [address] Social History Tobacco Use Types Packs/Day Years [...] file Not on file Not on file documented as of this encounter Plan of Treatment Not on file documented as of this encounter Visit Diagnoses Not on filedocumented in this encounter Additional Health Concerns Infection Onset Date Last Indicated Resolved Time CoV-Exposed Comment:Recent close contact documented in the COVID-19 PCR/PRO order 04/12/2021 04/16/2021 04/27/2021 1:23 AM E DT Assessment Noted Time PHQ-2 Depression Total Score: 6 11/30/19 19 8:47 AM EDT documented as of this encounter Care Teams Electro Mechanical Technologist Relationship Specialty Start Date End Date nAa Melgar MD 15 [facility] Yariel. [address] [place] [address] PCP - General Family Medicine 03/02/21 08/02/23 Paddy Simms PA [address] [place] [address] PCP - General 08/03/23 Denia Hassan CNM 22 [facility] 102 [place] [address] [email or web address] Historical LMR Provider 06/07/17 08/28/21 Sury Carter NP [address] [address] Historical LMR Provider 06/07/17 2 Divya Lopez CNM 30 [place] [address] Historical LMR Provider 06/07/17 2 Home Peacock MD [address] [address] Historical LMR Provider 06/07/17 Madina Keane BOX SEALING MACHINE OPERATOR 30 [place] [address] [email or web address] Historical LMR Provider 06/07/17 08/28/21 Elvia Fishman MD [address] [place] [address] Historical LMR Provider 06/07/17 Karlie Gupta MD [address] [place] [address] Historical LMR Provider 06/07/17 Emerita Fernandez MD [address] [address] Historical LMR Provider 06/07/17 Wei Velásquez MD [address] [place] [address] Historical LMR Provider 06/07/17 Divya Ahuja, RDCS Historical LMR Provider 06/07/17 08/28/21 Vijay Field MD [address] [place] [address] Historical LMR Provider 06/07/17 2 Turner Devlin MD [address] [place] [address] [email or web address] Historical LMR Provider 06/07/17 documented as of this encounter Additional Source Comments The information contained in this document represents components of the legal health record. It is not the complete legal health record.[facility]
--- OUTSIDE RECORDS SUMMARY | 2025-06-25 15:27 | XMS_ITS | Encounter Summary ---
Author Organization [facility] Address [address] [place] [address] Care Team Providers Care Endodontic Assistant Name Role Phone Paddy Simms Primary Care Provider [phone] Encounter Details Date Type Department Care Team (Late st Contact Info) Description 11/15/2024 Altenera Technology[employer] Message [facility] [address] [address] BoomBanghart, Generic Provider [address] [place], [place] [id number] refill Social History Tobacco Use Types Packs/Day Years [...] Description 08/01/2025 10:45 AM EST Office Visit [facility] 4th [address] [place] [address], [place] [phone] Refinery Operator Crude Unit: Christy Valentine MD [address] [place] [address] 08/27/2025 12:00 PM EST Follow-Up [facility] [place] [place] [address] Alondra Chua MD [address] [place] [address] documented as of this encounter Visit Diagnoses Not on filedocumented in this encounter Care Teams Endodontic Assistant Relationship Specialty Start Date End Date Paddy Simms PA PCP - General 10/24/23 documented as of this encounter
--- OUTSIDE RECORDS SUMMARY | 2025-06-25 15:27 | XMS_ITS | Encounter Summary ---
Author Organization [employer] Address [address] [facility] 7t [place] [address] Care Team Providers Care Diesel Engine Tester Name Role Phone Paddy Simms Primary Care Provider [phone] Reason for Visit * Reason Comments Med Change Request Encounter Details Date Type Department Care Team ([facility] st Contact Info) Description 10/12/2023 Refill [facility] [address] [place] [address] Paddy Simms PA [address] [place], [place] [phone] Binge eating disorder Social History Tobacco Use [...] disorder documented in this encounter Care Teams Diesel Engine Tester Relationship Specialty Start Date End Date Paddy Simms PA [address] [place] [address] PCP - General Family Medicine 03/18/23 documented as of this encounter
--- OUTSIDE RECORDS SUMMARY | 2025-06-25 15:27 | XMS_ITS | Encounter Summary ---
Author Organization [facility] Address [address] [address] Phone Care Team Providers Care Auto Service Mechanic Name Role Phone Denia Hassan CNM Unavailable Sury Carter PRINTING EQUIPMENT MECHANIC Unavailable Divya Lopez CNM Unavailable Home Peacock MD Unavailable Madina Keane PRINTING EQUIPMENT MECHANIC Unavailable [phone] Elvia Fishman MD Unavailable [phone] Karlie Gupta MD Unavailable Emerita Fernandez MD Unavailable Wei Velásquez MD Unavailable Divya Ahuja RDCS Unavailable [email or web address] Vijay Field MD Unavailable [phone] Turner Devlin MD Unavailable [phone] Amy Cardoso DO Primary Care Provider [phone] Amy Cardoso DO Unavailable Ana Melgar MD Primary Care Provider [phone] Areli Cramer MD Primary Care Provider + Areli Cramer MD Primary Care Provider + Ana Melgar MD Primary Care Provider [phone] Amy Cardoso DO Unavailable [phone] Paddy Simms Primary Care Provider [phone] Encounter Details Date Type Department Care Team (Late st Contact Info) Description 10/09/2018 Transcribe Orders [facility] Phle[facility] Main 30 [place] [address] Olya Bello MD [address] [place] [address] Social History Tobacco Use Types Packs/Day Years [...] documented as of this encounter Care Teams Auto Service Mechanic Relationship Specialty Start Date End Date Amy Cardoso DO 9 [place] [address] [email or web address] PCP - General Family Medicine 08/28/18 12/24/20 Ana Melgar MD 15 [facility] 201 [place] [address] [email or web address] PCP - General Family Medicine 12/25/20 02/23/21 Areli Cramer MD [address] [place] [address] [email or web address] PCP - General Family Medicine 02/26/21 03/01/21 Areli Cramer MD [address] [place] [address] [email or web address] PCP - General Family Medicine 02/24/21 02/25/21 Ana Melgar MD [address] [place] [address] [email or web address] PCP - General Family Medicine 03/02/21 08/02/23 Paddy Simms PA [address] [place] [address] PCP - General 08/03/23 Denia Hassan CNM [address] [place] [address] 102 [place] [address] [email or web address] Historical LMR Provider 06/07/17 08/28/21 Sury Carter NP [address] [place] [address] Historical LMR Provider 06/07/17 2 Divya Lopez CNM 30 [place] [address] Historical LMR Provider 06/07/17 2 Home Peacock MD [address] [address] Historical LMR Provider 06/07/17 Madina Keane, PRINTING EQUIPMENT MECHANIC 30 [place] [address] [email or web address] Historical LMR Provider 06/07/17 08/28/21 Elvia Fishman MD [address] [place] [address] Historical LMR Provider 06/07/17 Karlie Gupta MD [address] [place] [address] [email or web address] Historical LMR Provider 06/07/17 Emerita Fernandez MD [address] [place] [address] [email or web address] Historical LMR Provider 06/07/17 Wei Velásquez MD [address] [address] Historical LMR Provider 06/07/17 Divya Ahuja, RDCS Historical LMR Provider 06/07/17 08/28/21 Vijay Field MD 61 [place] [address] Historical LMR Provider 06/07/17 1/2 2 Turner Devlin MD [address] [place] [address] [email or web address] Historical LMR Provider 06/07/17 Amy Cardoso DO [address] [place] [address] [email or web address] [email or web address] Insurance Assigned Provider 10/24/20 12/22/20 Amy Cardoso DO [address] [place] [address] [email or web address] hospitalGradient [facility] Insurance Assigned Provider 10/24/20 03/27/21 documented as of this encounter Additional Source Comments The information contained in this document represents components of the legal health record. It is not the complete legal health record.[facility]
--- OUTSIDE RECORDS SUMMARY | 2025-06-25 15:27 | XMS_ITS | Encounter Summary ---
Author Organization [facility] Address [address] [address] Phone Care Team Providers Care Box Packer Name Role Phone Denia Hassan CNM Unavailable Sury Carter FOOD COUNTER ATTENDANT Unavailable Divya Lopez CNM Unavailable Home Peacock MD Unavailable Madina Keane FOOD COUNTER ATTENDANT Unavailable [phone] Elvia Fishman MD Unavailable [phone] Karlie Gupta MD Unavailable Emerita Fernandez MD Unavailable Wei Velásquez MD Unavailable Divya Ahuja RDCS Unavailable [email or web address] Vijay Field MD Unavailable [phone] Turner Devlin MD Unavailable [phone] Karlie Gupta MD Primary Care Provider Amy Cardoso DO Primary Care Provider [phone] Amy Cardoso DO Unavailable Ana Melgar MD Primary Care Provider [phone] Areli Cramer MD Primary Care Provider + Areli Cramer MD Primary Care Provider + Ana Melgar MD Primary Care Provider [phone] CardosoAmy DO Unavailable [phone] Paddy Simms Primary Care Provider [phone] Encounter Details Date Type Department Care Team (Latest Contact Info) Description 03/28/2018 Transcribe Orders [facility] Phleb Main 30 [place] [address] Minnie Best, MAGALY [address] [place] [address] Routine medical exam (Primary Dx) Social History Tobacco Use Types [...] documented as of this encounter Results * (ABNORMAL) Elicia female (03/28/2018 8:35 AM EDT) SODIUM 143 133 - 146 mmol/L [facility] POTASSIUM 3.9 3.3 - 5.1 mmol/L [facility] CHLORIDE 105 96 - 108 mmol/L [facility] CO2 26 21 - 35 mmol/L [facility] BUN 12 6 - 19 mg/dL [facility] CREATININE 1.00 0.5 - 1.5 mg/dL [facility] GLUCOSE 83 70 - 99 mg/dL [facility] ALBUMIN 4.3 3.9 - 4.8 g/dL [facility] TOTAL PROTEIN 7.3 6.5 - 8.0 g/dL [facility] CALCIUM 9.3 8.4 - 10.3 mg/dL [facility] ALKALINE PHOSPHATASE 65 39 - 117 U/L [facility] TOTAL BILIRUBIN 0.2 0.0 - 1.2 mg/dL [facility] AST 28 0 - 37 U/L [facility] ALT 31 0 - 40 U/L [facility] GLOBULIN 3.0 1 - 4.8 g/dL [facility] EGFR 80 >59 mL/min/1.73 m2 [facility] Comment:If patient is black, multiply result by 1.159. Estimated glomerular filtration rate calculated using the CKD-EPI equation. ANION GAP 16 10 - 20 mmol/L [facility] WBC 6.84 3.40 - 11.20 K/uL [facility] RBC 3.95 3.80 - 4.80 M/uL [facility] HGB 12.4 12.0 - 15.0 g/dL [facility] HCT 37.4 36.0 - 46.0 % [facility] PLT 276 130 - 400 K/uL [facility] MCV 94.7 79.0 - 98.0 fL [facility] MCH 31.4 27.0 - 34.8 pg [facility] MCHC 33.2 31.5 - 36.0 g/dL [facility] RDW 13.1 10.8 - 14.6 % [facility] MPV 9.7 9.4 - 12.4 fl [facility] NRBC 0.00 /100 WBCs [facility] ABSOLUTE NRBC 0.00 K/uL [facility] DIFF METHOD Auto [facility] NEUTS 53.3 45.30 - 77.70 % [facility] LYMPHS 37.7 12.30 - 39.70 % [facility] MONOS 6.4 4.10 - 12.80 % [facility] EOS 1.9 0 - 7.2 % [facility] BASOS 0.4 0 - 2.80 % [facility] Granulocytes, immature (%) 0.3 0.0 - 0.9 % [facility] ABSOLUTE NEUTS 3.64 1.40 - 7.70 K/uL [facility] ABSOLUTE LYMPHS 2.58 0.60 - 3.20 K/uL [facility] ABSOLUTE MONOS 0.44 0.11 - 0.59 K/uL [facility] ABSOLUTE EOS 0.13 0.01 - 0.50 K/uL [facility] ABSOLUTE BASOS 0.03 0.00 - 0.08 K/uL [facility] Granulocytes, immature 0.02 0.00 - 0.05 K/uL [facility] TSH 0.54 0.27 - 4.20 uIU/mL [facility] MAGNESIUM 2.0 1.6 - 2.6 mg/dL [facility] PHOSPHORUS 3.5 2.7 - 4.5 mg/dL [facility] IRON 55 30 - 160 ug/dL [facility] IRON BINDING CAPACITY 321 228 - 428 ug/dL [facility] TRANSFERRIN SATURAT. 17 15 - 50 % [facility] FOLIC ACID 7.6 4.2 - 19.9 ng/mL [facility] VITAMIN B12 283 232 - 1,245 pg/mL [facility] AMYLASE 136(H) 28 - 100 U/L [facility] LIPASE 43 16 - 63 U/L [facility] FERRITIN 24 13 - 150 ug/L [facility] HCG BETA <0.1 mIU/mL [facility] Comment: Interpretation: FEMALE: Negative Result: Less than 5 mIU/ml. 1 Week Post Conception: 0 - 50 mIU/ml. 4 Weeks Post Conception: 3,000 - 19,000 mIU/ml. 12 Weeks Post Conception: 16,000 - 160,000 mIU/ml. ZINC 0.93 0.66 - 1.10 mcg/mL [facility] Comment: (NOTE) ADDITIONAL INFORMATION This test was developed and its performance characteristics determined by [facility] in a manner consistent with CLIA requirements. This test has not been cleared or approved by the U.S. Food and Drug Administration. 25 OH VIT D (TOTAL) 26(L) 30 - 60 ng/mL [facility] HDL 76 mg/dL [facility] Comment: Interpretation: Risk Level Females Decreased >55mg/dL Average 50-55 mg/dL Increased <50 mg/dL CHOLESTEROL 154 0 - 240 mg/dL [facility] TRIGLYCERIDES 91 30 - 160 mg/dL [facility] LDL 60 50 - 129 mg/dL [facility] Comment: LDL levels in terms of risk for coronary heart disease: <100 mg/dL: Optimal 100-129 mg/dL: Near or above optimal 130-159 mg/dL: Borderline high 160-189 mg/dL: High >190 mg/dL: Very High CARDIAC RISK RATIO 2.0(L) 3.3 - 4.4 [facility] URINE CANNABINOIDS Positive(A) NONE DETECTED [facility] Comment:Cutoff: 50 ng/mL URINE COCAINE METAB NONE DETECTED NONE DETECTED [facility] Comment:Cutoff: 300 ng/mL URINE AMPHETAMINES NONE DETECTED NONE DETECTED [facility] Comment:Cutoff: 1000 ng/mL URINE METHADONE NONE DETECTED NONE DETECTED [facility] Comment:Cutoff: 300 ng/mL URINE OPIATES NONE DETECTED NONE DETECTED [facility] Comment:Cutoff: 300 ng/mL URINE PHENCYCLIDINE NONE DETECTED NONE DETECTED [facility] Comment:Cutoff: 25 ng/mL URINE OXYCODONE NONE DETECTED NONE DETECTED [facility] Comment:Cutoff: 300 ng/ml URINE BARBITURATES NONE DETECTED NONE DETECTED [facility] Comment:Cutoff: 200 ng/mL URINE BENZODIAZEPINE NONE DETECTED NONE DETECTED [facility] Comment: Cutoff: 200 ng/mL INTERPRETATION FOR TOXICOLOGY PANEL: These results are unconfirmed and should be used for Medical Treatment purposes only. Blood 03/28/2018 8:35 AM EDT 03/28/2018 8:44 AM EDT Minnie Best NP LAB BLOOD ORDERABLES Final Result [facility] [address] [place] [address] [facility] [address] [place] [address] documented in this encounter Visit Diagnoses Diagnosis Routine medical exam- Primary Routine general medical examination at a health care facility documented in this encounter Additional Health Concerns Infection Onset Date Last Indicated Resolved Time CoV-Risk 02/24/2021 02/24/2021 03/06/2021 1:2 3 AM EDT CoV-Risk 03/17/2021 03/17/2021 03/19/2021 11:4 5 AM EDT [facility]Ex[facility] Comment:Recent close contact documented in the COVID-19 PCR/PRO order 04/12/2021 04/16/2021 04/27/2021 1:23 AM E DT documented as of this encounter Care Teams Box Packer Relationship Specialty Start Date End Date Karlie Gupta MD [address] [place] [address], 2nd [place] [address] [email or web address] PCP - General Internal Medicine 09/20/17 08/27/18 Amy Cardoso DO [address] [place] [address] [email or web address] PCP - General Family Medicine 08/28/18 12/24/20 Ana Melgar MD [address] [place] [address] [email or web address] PCP - General Family Medicine 12/25/20 02/23/21 Areli Cramer MD [address] [place] [address] [email or web address] PCP - General Family Medicine 02/26/21 03/01/21 Areli Cramer MD [address] [place] [address] [email or web address] PCP - General Family Medicine 02/24/21 02/25/21 Ana Melgar MD [address] [place] [address] [email or web address] PCP - General Family Medicine 03/02/21 08/02/23 Paddy Simms PA [address] [place] [address] PCP - General 08/03/23 Denia Hassan CNM [address] [place] [address] [email or web address] Historical LMR Provider 06/07/17 08/28/21 Sury Carter NP [address] [place] [address] Historical LMR Provider 06/07/17 2 Divya Lopez CNM [address] [place] [address] Historical LMR Provider 06/07/17 2 Home Peacock MD [address] [place] [address] [email or web address] Historical LMR Provider 06/07/17 Madina Keane NP [address] [place] [address] [email or web address] Historical LMR Provider 06/07/17 08/28/21 Elvia Fishman MD [address] [place] [address] Historical LMR Provider 06/07/17 Karlie Gupta MD [address] [place] [address] Historical LMR Provider 06/07/17 Emerita Fernandez MD [address] [place] [address] [email or web address] Historical LMR Provider 06/07/17 Wei Velásquez MD 22 [facility] [address] [place] [address] [email or web address] Historical LMR Provider 06/07/17 Divya Ahuja, RDCS [email or web address] Historical LMR Provider 06/07/17 08/28/21 Vijay Field MD [address] [place] [address] Historical LMR Provider 06/07/17 2 Turner Devlin MD [address] [place] [address] [email or web address] Historical LMR Provider 06/07/17 Amy Cardoso DO [address] [place] [address] [email or web address] Insurance Assigned Provider 10/24/20 12/22/20 Amy Cardoso DO [address] [place] [address] [email or web address] Insurance Assigned Provider 10/24/20 03/27/21 documented as of this encounter Additional Source Comments The information contained in this document represents components of the legal health record. It is not the complete legal health record.[facility]
--- OUTSIDE RECORDS SUMMARY | 2025-06-25 15:27 | XMS_ITS | Encounter Summary ---
Author Organization [facility] Address [address] [address] Phone Care Team Providers Care Decision Science Analyst Name Role Phone Denia Hassan CNM Unavailable Sury Carter CLINICAL BIOCHEMIST Unavailable Divya Lopez CNM Unavailable Home Peacock MD Unavailable Madina Keane CLINICAL BIOCHEMIST Unavailable [phone] Elvia Fishman MD Unavailable [phone] Karlie Gupta MD Unavailable Emerita Fernandez MD Unavailable Wei Velásquez MD Unavailable Divya Ahuja RDCS Unavailable [email or web address] Vijay Field MD Unavailable [phone] Turner Devlin MD Unavailable [phone] Ana Melgar MD Primary Care Provider [phone] Paddy Simms Primary Care Provider [phone] Encounter Details Date Type Department Care Team (Late st Contact Info) Description 04/30/2021 Procedure Pass [facility] [address] [place] [address] Social History Tobacco Use Types Packs/Day Years [...] filedocumented in this encounter Additional Health Concerns Assessment Noted Time PHQ-2 Depression Total Score: 6 11/30/19 19 8:47 AM EDT documented as of this encounter Care Teams Decision Science Analyst Relationship Specialty Start Date End Date Ana Melgar MD 15 [facility] [address]. [address] [place] [address] PCP - General Family Medicine 03/02/21 08/02/23 Paddy Simms PA [address] [place] [address] PCP - General 08/03/23 Denia Hassan CNM 22 [facility] 102 [place] [address] Historical LMR Provider 06/07/17 08/28/21 Sury Carter NP [address] [place] [address] 340 [place] [address] Historical LMR Provider 06/07/17 2 Divya Lopez CNM 30 [place] [address] Historical LMR Provider 06/07/17 2 Home Peacock MD [address] [address] Historical LMR Provider 06/07/17 Madina Keane, CLINICAL BIOCHEMIST 30 [place] [address] [email or web address] Historical LMR Provider 06/07/17 08/28/21 Elvia Fishman MD [address] [place] [address] Historical LMR Provider 06/07/17 Karlie Gupta MD [address] [place] [address] [email or web address] Historical LMR Provider 06/07/17 Emerita Fernandez MD [address] [address] Historical LMR Provider 06/07/17 Wei Velásquez MD [address] [address] Historical LMR Provider 06/07/17 Divya Ahuja, RDCS Historical LMR Provider 06/07/17 08/28/21 Vijay Field MD 61 [place] [address] Historical LMR Provider 06/07/17 2 Turner Devlin MD [address] [place] [address] [email or web address] Historical LMR Provider 06/07/17 documented as of this encounter Additional Source Comments The information contained in this document represents components of the legal health record. It is not the complete legal health record.[facility]
--- OUTSIDE RECORDS SUMMARY | 2025-06-25 15:27 | XMS_ITS | Encounter Summary ---
Author Organization [facility] Address [address] [address] Phone Care Team Providers Care Prime Broker Name Role Phone Denia Hassan CNM Unavailable Sury Carter POTATO LOADER Unavailable Divya Lopez CNM Unavailable Home Peacock MD Unavailable Madina Keane POTATO LOADER Unavailable [phone] Elvia Fishman MD Unavailable [phone] Karlie Gupta MD Unavailable Emerita Fernandez MD Unavailable Wei Velsáquez MD Unavailable Divya Ahuja RDCS Unavailable [email or web address] Vijay Field MD Unavailable [phone] Turner Devlin MD Unavailable [phone] Karlie Gupta MD Primary Care Provider Amy Cardoso DO Primary Care Provider [phone] Amy Cardoso DO Unavailable Ana Melgar MD Primary Care Provider Areli Cramer MD Primary Care Provider + Areli Cramer MD Primary Care Provider + Ana Melgar MD Primary Care Provider [phone] Amy Baljeet DO Unavailable [phone] Paddy Simms Primary Care Provider [phone] Encounter Details Date Type Department Care Team (Late st Contact Info) Description 03/28/2018 Transcribe Orders [facility] Phleb Main [address] [place] [address] Minnie Best, MAGALY [address] [place] [address] Social History Tobacco Use Types Packs/Day Years [...] documented as of this encounter Care Teams Prime Broker Relationship Specialty Start Date End Date Karlie Gupta MD [address] [place] [address], 2nd [place] [address] [email or web address] PCP - General Internal Medicine 09/20/17 08/27/18 Amy Cardoso DO [address] [place] [address] [email or web address] PCP - General Family Medicine 08/28/18 12/24/20 Ana Melgar MD [address] [place] [address] [email or web address] PCP - General Family Medicine 12/25/20 02/23/21 Areli Cramer MD [address] [place] [address] [email or web address] PCP - General Family Medicine 02/26/21 03/01/21 Areli Cramer MD [address] [place] [address] [email or web address] PCP - General Family Medicine 02/24/21 02/25/21 Ana Melgar MD [address] [place] [address] [email or web address] PCP - General Family Medicine 03/02/21 08/02/23 Paddy Simms PA [address] [place] [address] PCP - General 08/03/23 Denia Hassan CNM 22 [facility], [address] [place] [address] Historical LMR Provider 06/07/17 08/28/21 Sury Carter NP [address] [place] [address] Historical LMR Provider 06/07/17 2 Divya Lopez CNM 30 [place] [address] Historical LMR Provider 06/07/17 2 Home Peacock MD [address] [address] Historical LMR Provider 06/07/17 Madina Keane NP 30 [place] [address] Historical LMR Provider 06/07/17 08/28/21 Elvia Fishman MD [address] [place] [address] Historical LMR Provider 06/07/17 Karlie Gupta MD [address] [place] [address], [address] [place] [address] Historical LMR Provider 06/07/17 Emerita Fernandez MD [address] [address] Historical LMR Provider 06/07/17 Wei Velásquez MD [address] [address] [email or web address] Historical LMR Provider 06/07/17 Divya Ahuja, [place] [email or web address] Historical LMR Provider 06/07/17 08/28/21 Vijay Field MD [address] [place] [address] Historical LMR Provider 06/07/17 2 Turner Devlin MD [address] [place] [address] [email or web address] [email or web address] [email or web address] .[email or web address] Historical LMR Provider 06/07/17 Amy Cardoso DO [address] [place] [address] [email or web address] Insurance Assigned Provider 10/24/20 12/22/20 Amy Cardoso DO [address] [place] [address] [email or web address] Insurance Assigned Provider 10/24/20 03/27/21 documented as of this encounter Additional Source Comments The information contained in this document represents components of the legal health record. It is not the complete legal health record.[facility]
--- OUTSIDE RECORDS SUMMARY | 2025-06-25 15:27 | XMS_ITS | Encounter Summary ---
Author Organization [employer] Address [address] [facility] [address] [place] [address] Care Team Providers Care Shot Tube Machine Tender Name Role Phone Paddy Simms Primary Care Provider [phone] Encounter Details Date Type Department Care Team ([facility] st Contact Info) Description 10/31/2023 Abstract [facility] [address] [place] [address] Paddy Simms PA [address] [place], [place] [id number] Social History Tobacco Use Types Packs/Day Years [...] MD LAB CYTOLOGY ORDERABLES F inal Result [address], [place] [address] documented in this encounter Visit Diagnoses Not on filedocumented in this encounter Care Teams Shot Tube Machine Tender Relationship Specialty Start Date End Date Paddy Simms PA [address] [place] [phone] PCP - General Family Medicine 03/18/23 documented as of this encounter
== END 2025-06-25 13:28 | disposition home or self-care (01) ==
LOC: HO.RHES 12:47
PROVIDERS: PCP Physician Assistant Medical; Visit Provider Internal Medicine Rheumatology
DX: M47.819 Spondylosis without myelopathy or radiculopathy, site unspecified (principal); Z79.899 Other long term (current) drug therapy; M53.3 Sacrococcygeal disorders, not elsewhere classified; G89.29 Other chronic pain
CPT/HCPCS: 99214

== ENCOUNTER → 2025-06-25 12:47 | Outpatient (BNVA) | payer MEDICAID, SELFPAY | PROVIDERS: PCP Physician Assistant Medical; Visit Provider Internal Medicine Rheumatology | DX: M53.3 Sacrococcygeal disorders, not elsewhere classified (principal); G89.29 Other chronic pain; Z79.899 Other long term (current) drug therapy; M47.819 Spondylosis without myelopathy or radiculopathy, site unspecified | CPT/HCPCS: 99212 ==